=== PATIENT | male | born 1935 | race Caucasian/White ===

== ENCOUNTER 2020-09-18 07:35 | Inpatient (IN) | payer MEDICARE, SELFPAY ==
[2020-09-18] VITALS (14 sets, daily range): BP systolic 108–191; BP diastolic 61–94; PULSE 42–106; RESP 14–22; TEMP 36.3–36.9; O2SAT 96–100
--- NOTE | 2020-09-18 | DI.US_ITS ---
EXAM: US THYROID CLINICAL HISTORY: enlarged. TECHNIQUE: Ultrasound thyroid performed using standard protocol. COMPARISON: No exams were available for comparison FINDINGS: Both thyroid lobes exhibit normal size, as does the isthmus. The thyroid gland echotexture is within normal limits. The right lobe measures 1.7 centimetres AP by 1.3 centimetres wide by 4.3 centimetres cephalocaudal. There are 2 focal findings in the right lobe, both measuring 3 x 2 millimeters and having the appeara nce of benign colloid cysts. There are no solid nodules in the right lobe. The isthmus appears unremarkable The left lobe measures 1.5 centimeters AP x 1.4 centimeters wide by 4.4 centimetres cephalocaudal. T here are no nodules nor cysts in the left lobe. No significant lymphadenopathy evident on these images. IMPRESSION: There are 2 small benign 3 millimeter colloid cysts in the right thyroid lobe. No other focal thyroi d findings. Thyroid lobes both exhibit normal size. No obvious lymphadenopathy evident.
--- NOTE | 2020-09-18 07:30 | RT.EKG_ITS ---
APPROVED REPORT Exam: Resting ECG Patient Location: E HR:77 bpm ECG Measurements Heart Rate 77 AXIS NE 180 P 62 QRSd 103 QRS -10 QT 394 T 58 QTc 433 Conclusion Sinus rhythm...normal P axis, V-rate 60- 99 Probable left atrial enlargement...P >50mS, <-0.10mV V1 I have reviewed and interpreted ECG and agree with software generated interpretation. No stemi, brugada, or epsilon wave
--- NOTE | 2020-09-18 08:18 | W.ED.GENAD ---
Discharge Plan Discharge Details Chief Complaint: RespSymp Admit Date/Time: 09/18/20 10:46 Admit Provider: Arthur Casey Attending Provider: Arthur Casey Primary Care Provider: Luz Townsend ED Provider: Hilaria Montalvo Medical Decision Making Patient has become progressively more confused throughout the evaluation and does have a positive urinary tract infection, interestingly has [place] BNP of 2432 in the absence of overt areas of CHF, he does not have noted cardiomegaly on the CTA, there is no evidence of Pulmonary embolism He has not hypoxic in fact oxygenation is 100% on room air Mildly hyponatremic, 131 EKG shows evidence of PVCs Vitals are stable Blood cultures pending, lactate negative, TSH within normal limits No evidence of pneumonia I do not see any visible evidence of trauma, low suspicion for subdural or subarachnoid headache clinically I did discuss with Dr. Galindo regarding CTA does not show evidence of pulmonary embolism but does exhibit small right pleural effusion with a removal compression fracture at 12, no tenderness appreciated. Low suspicion for COVID-19 as patient has not had known exposure I did attempt to ask and patient regarding his current status and patient is not clinically able to make this decision at this time, however in obtaining the answer from He will be full code until we are able to have this discussion Ceftriaxone 1 g was initiated, patient does not meet sepsis criteria Patient is quite forgetful, he is agreeable to admission Other he is confused, he is alert and was able to tell me the date and location as well as his birthdate on initial presentation He was discussed with the hospital letter, Differential Diagnosis Differential Diagnosis: CHF, pulmonary embolism, pneumonia, urinary tract infection Medical Records Medical records reviewed: Yes I reviewed the patient's medical records. Lab Data Lab results reviewed: Yes I reviewed the patient's lab results. ECG Data Prior ECG tracings: available for review HPI This 84-year-old male presents with past medical history of hypertension and hyperlipidemia. He called EMS today because he was feeling short of breath. He states that he had intermittent symptoms for the past year. Today he was concerned because the had shakes, anorexia, and felt as though he could not take a deep breath. He denies any associated chest discomfort. He denies fever or chills. He denies any exertional dyspnea or calf pain or swelling. He denies known sick contacts. His is otherwise well. He denies any thoughts of wanting to harm self or others. He denies any history of coagulopathy. He denies any pleuritic chest pain. He did recently acquire a primary care physician and is scheduled for an appointment regarding his anxiety or potential anxiety today. At rest and upon my evaluation he states that he is completely asymptomatic at this time aside from anorexia, he simply has no interest in. He states. He denies any nausea or vomiting. He denies any change in medications with after taking a sleeping pill. He denies any attempts to harm self. He denies known depression. He has not yet been formally diagnosed with anxiety patient. General Date/Time Provider Initiated Documentation: 09/18/20 07:46. Related Data Home Medications Medication Instructions Recorded Confirmed multivitamin 1 ea PO DAILY 08/06/13 09/18/20 Allergies Allergy/AdvReac Type Severity Reaction Status Date / Time indomethacin Allergy Severe MOUTH Verified 09/18/20 08:03 SWELLED General Stated Complaint: RespSymp [place]: 3 Review of Systems Narrative: Review of systems obtained x7 and negative aside from indicated in HPI PFSH Family History (Updated 08/08/18 @ 13:48 by Fatimah Kurtz) Mother Heart disease Father , AGE 83 No problems noted. Social History (Updated 08/08/18 @ 13:47 by Fatimah Kurtz) Smoking/Tobacco Use Status: Former Tobacco Use Quit Date: 08/28/87 Smoking risk assessment performed?: Yes Alcohol Intake: former Substance use type: does not use Frequency: does not exercise Rohini/Synagogue: No preference Special rohini needs: No Do you feel safe at home: Yes Do you feel safe in your relationship?: Yes Exam Const General: cooperative and no acute distress Nutritional Appearance: thin Orientation: alert [facility] Head: normal to inspection Mouth: oral mucosae normal Eyes General: appearance normal, both eyes and all related structures Neck Thyroid: thyroid normal Chest Chest: normal inspection of the chest Resp Effort & Inspection: normal respiratory effort Auscultation: clear to auscultation bilaterally Cardio Jugular venous pressure: no JVD Rate: regular rate Rhythm: regular rhythm Neuro General: patient alert Cranial Nerves: CN's II-XI intact bilaterally Cognition: normal cognition Speech: speech normal Sensory Exam: no sensory deficits noted Psych Appearance: well kempt Mental Status: mental status grossly normal Speech and Movement: speech and movement normal Mood: anxious mood Thought Process: normal Thought Content: normal Insight: insight good Judgment: judgment good Course Vital Signs Vital signs: Vital Signs Temperature 36.4 C L 09/18/20 07:43 Pulse 81 09/18/20 07:43 Respiratory Rate 16 09/18/20 07:43 Blood Pressure 153/67 H 09/18/20 07:43 Pulse Oximetry 100 09/18/20 07:43 Temperature 36.4 C L 09/18/20 07:43 Pulse 81 09/18/20 07:43 Respiratory Rate 16 09/18/20 07:43 Respiratory Effort Non-Labored 09/18/20 07:54 Blood Pressure 153/67 H 09/18/20 07:43 Pulse Oximetry 100 09/18/20 07:43 Oxygen Delivery Method Room Air 09/18/20 07:43 Oxygen Flow Rate 0 09/18/20 07:43 Pain Level 0 09/18/20 07:43
[2020-09-18 08:30] LABS: Abs Immature Grans 0.01 10^3/uL (0.0-0.06); Absolute Basophil Count 0.01 10^3/uL (0.0-0.2); Absolute Eosinophil Count 0.04 10^3/uL (0.0-0.7); Absolute Lymphocyte Count 0.78 10^3/uL (1.2-3.4); Absolute Monocyte Count 0.73 10^3/uL (0.1-0.8); Absolute Neutrophil Count 3.81 10^3/uL (1.2-6.7); Basophils % 0.2; Eosinophils % 0.7; HCT 33.8 % (40.0-50.0); HGB 11.4 g/dL (13.5-17.5); Immature Grans % 0.2; Lymphocytes % 14.5; MCH 33.7 pg (27.0-33.0); MCHC 33.7 % (32.0-36.0); MPV 9.7 fL (8.0-11.0); Monocytes % 13.6; Neutrophils % 70.8; Nucleated RBC 0 %; Platelet Count 177 10^3/uL (130-400); RBC 3.38 10^6/uL (4.36-5.78); RDW 12.2 % (11.8-14.1); RDW-SD 44.6 fL; WBC 5.38 10^3/uL (4.4-10.8)
[2020-09-18 08:50] LABS: Bilirubin Negative (Negative); Blood Trace-intact (Negative); Clarity Sl Cloudy (Clear); Glucose Negative (Negative); Ketones Negative (Negative); Leukocyte Esterase Moderate (Negative); Nitrite Positive (Negative); pH 7.5 (5-8)
[2020-09-18 08:52] LABS: ALT 15 U/L (16-63); AST 20 U/L (15-37); Albumin 2.8 g/dL (3.4-5.0); Alkaline Phosphatase 143 U/L (46-116); BUN 13 mg/dL (7-18); Bilirubin, Total 0.8 mg/dL (0.2-1.0); CREATININE 0.84 mg/dL (0.70-1.30); Chloride 95 mmol/L (98-107); Glucose 123 mg/dL (74-106); NT-proBNP 2343 pg/mL (<300); Potassium 3.9 mmol/L (3.5-5.1); Sodium 131 mmol/L (136-145); Total Protein 7.4 g/dL (6.4-8.2); Troponin I < 0.05 ng/mL (<0.06)
[2020-09-18 09:05] LABS: Bacteria Many HPF (Negative); Crystals Negative HPF (Negative); Epithelial Cells Negative HPF (Negative); Mucus Negative (Negative); RBC 0-2 HPF (0-2); WBC >50 HPF (0-5)
[2020-09-18 09:06] LABS: C & S Indicated? Yes
--- NOTE | 2020-09-18 09:10 | DI.RAD_ITS ---
EXAM: XR PORTABLE CHEST AP CLINICAL HISTORY: shortness of breath TECHNIQUE: 2D digital imaging was performed. COMPARISON: No exams were available for comparison FINDINGS: Heart size is within normal limits. The pulmonary vasculature is unremarkable. There are diffuse in terstitial markings. Although this may represent an acute interstitial pneumonia/edema, chronic pulm onary fibrosis should also be considered. Please correlate clinically. No focal consolidating infil trates are seen. There is blunting of the right costophrenic angle which may represent a small pleur al effusion. No left pleural effusion or pneumothorax is seen. There is a mild right convex scolios is of the thoracic spine. Degenerative changes are seen in the thoracic spine and shoulders bilatera lly. IMPRESSION: 1. Small right pleural effusion. 2. Diffuse interstitial changes within the lungs. This may reflect chronic pulmonary fibrosis. Acut e interstitial infiltrate/edema cannot be excluded. Please correlate clinically. DATA REPOSITORY: RADIATION DOSE DELIVERED:
[2020-09-18] MEDS: Omnipaque 350 MG/ML 100 ML BTL IJ (09:38)
[2020-09-18] MEDS: Normal Saline - Diluent 50 ML VIAL IV (09:39)
[2020-09-18] MEDS: Normal Saline Flush 10 ML SYR IVP ×3 (09:40→12:20)
--- NOTE | 2020-09-18 09:45 | DI.CT_ITS ---
EXAM: CT CHEST PE CTA CLINICAL HISTORY: elevated bnp level and dyspnea. TECHNIQUE: Imaging Protocol: Axial CT angiography was performed with multi-slice acquisition and mu lti-planar and/or 3D reconstructions. CONTRAST MATERIAL: Intravenous: Omnipaque 350 Contrast volume:100 mL COMPARISON: CR XR PORTABLE CHEST AP from 09/18/2020 FINDINGS: The examination is limited due to patient motion artifact. Tracheobronchial tree: Patent where visualized. Pulmonary parenchyma: No consolidation or dominant measurable mass. Mild pulmonary fibrosis. Examina tion is limited due to patient respiration artifact. Pulmonary Arteries: No evidence of filling defect to suggest pulmonary emboli. Mediastinum and Sera: No dominant adenopathy or fluid collection. Visualized thyroid gland: Unremarkable. Pleura: There is a small right pleural effusion. No left pleural effusion. No pneumothorax. Heart: The heart is not dilated. Moderate coronary artery calcification. No pericardial effusion. Aorta: Thoracic aorta non-dilated. Atherosclerosis. No evidence of dissection. Upper abdomen: Unremarkable. Soft tissues: Unremarkable. Bones: There is a mild compression deformity of the T12 vertebral body this is indeterminate in age. IMPRESSION: 1. No evidence of pulmonary embolism, thoracic aortic dissection or aneurysm. 2. Mild T12 compression deformity. This is of indeterminate age. 3. Findings were discussed with the emergency department on the date of the examination. RADIATION DOSE DELIVERED: 223.63mGy.cm Total DLP DATA REPOSITORY: All CT scans at this facility are submitted to the National Radiology Data Registry (NRDR) Dose Index Registry (DIR) with the [employer] (ACR). RADIATION OPTIMIZATION: All CT scans at this facility use at least one of these dose optimization te chniques: automated exposure control; mA and/or kV adjustment per patient size (includes targeted exa ms where dose is matched to clinical indication); or iterative reconstruction.
--- NOTE | 2020-09-18 10:05 | NUR.NOTE ---
blood cultures x 2 obtained by slab off mill tender and lactic
[2020-09-18 10:09] LABS: Lactate 1.1 mmol/L (0.6-1.4)
[2020-09-18] MEDS: cefTRIAXone 1 GM/50 ML BAG IVPB (10:14)
--- NOTE | 2020-09-18 10:52 | NUR.NOTE ---
assisted at bedside with two nurses to use urinal. very anxious, asking what happens next and what time he will go to bed tonight. states he does not want to lay here all day. required quite a bit of verbal cues to get out of bed and use urinal which he did earlier independently. states they have me coming and going and I don't know which way is which. he spoke with his on the phone
[2020-09-18] MEDS: Normal Saline 250 ML 500 ML IV (11:00)
[2020-09-18] MEDS: LORazepam 2 MG/ML VIAL 0.5 MG IVP (12:14)
[2020-09-18] MEDS: Furosemide 20 MG/2 ML VIAL IVP (12:19)
[2020-09-18] MEDS: Heparin 5,000 UNITS/ML VIAL 5000 UNITS SC ×2 (12:19→19:19)
[2020-09-18] MEDS: diazePAM 2 MG TAB PO ×2 (12:38→14:11)
[2020-09-18] MEDS: hydrOXYzine HCL 25 MG TAB PO (12:39)
--- NOTE | 2020-09-18 13:00 | W.NUTCONSULT ---
Date of service: 09/18/20 Time of Service: 13:00 Nutritional Consult ASSESSMENT: 84 year old cachexic male admitted with UTI and weakness. PMH: CHF, HTN, HLD, r/o covid 19. Did not meet with pt today in view of precautions. BMI wnl,on low end, reports poor appetite in recent weeks. Albumin low(2.8 09/18/20), elevated liver enzymes, elevated glucose. NUTRITIONAL DIAGNOSIS: Moderate malnutrition in view of loss of subcutaneous fat and muscle wasting INTERVENTION: advance diet as tolerated supplement with ensure BID, custard or ice cream qd MONITORING AND EVALUATION: weight, po intake, labs Time Spent in Nutritional Counseling and Treatment: 0
--- NOTE | 2020-09-18 14:14 | HPE_ITS ---
Date of service: 09/18/20 Time of Service: 14:14 Assessment and Plan Assessment and plan (1) Weakness: Start date: 09/18/20 Start time: 14:42 Status: Acute Assessment and plan: Brought to [facility] ED for weakness inability to eat, x 1 year, appears chachetic. BNP elevated, ordered echo anemia by labs in ED Iron studies for am PT/OT eval Palliative PSA (2) UTI (urinary tract infection): Start date: 09/18/20 Start time: 14:38 Status: Acute Assessment and plan: Found [employer] INTER[employer], urine culture pending. Started on ceftriaxone 1 gm Obtaining Abd/pelvis CT Bladder scan for PVR Bowel Regimen Qualifiers: Urinary tract infection type: site unspecified Hematuria presence: without hematuria Qualified Code(s): N39.0 - Urinary tract infection, site not specified (3) Anxiety: Start date: 09/18/20 Start time: 14:43 Status: Chronic Assessment and plan: Severly anxious. He appeared to do well with low dose valium will make PRN TID, add seroquel BID 25 mg and decrease if becomes too sedating, no known diagnosis of dementia, though this is likely and in setting of acute delirium. Sitter for safety Continue safety precautions. (4) Memory deficit: Start date: 09/18/20 Start time: 14:44 Status: Acute Assessment and plan: as above (5) Hypertension: Start date: 09/18/20 Start time: 14:40 Status: Chronic Assessment and plan: No currently on anything, will start low dose lisinopril Qualifiers: Hypertension type: essential hypertension Qualified Code(s): I10 - Essential (primary) hypertension (6) Hyperlipidemia: Start date: 09/18/20 Start time: 14:41 Status: Acute Assessment and plan: Per history HLD, but not currently on anything will check lipid panel in am Qualifiers: Hyperlipidemia type: unspecified Qualified Code(s): E78.5 - Hyperlipidemia, unspecified History of Present Illness History of Present Illness Chief Complaint: UTI, Weakness, Anxiety Narrative: 84 y.o male with dementia, HTN, HLD, presents to [facility] ED with c/o feeling SOB. He states having intermittent symptoms x 1 year. He states over the last year he has had shakes, anorexia, and felt as though he could not take a deep breath. Labs in ED remarkable for H/H 11.4/33.8, MCV 100.0. NA 131 alk phos 143, BNP 2343 albumin 2.8. He has been asked to be admitted for further management. On admission to floor patient is very nervous/anxious, chachetic, he was given ativan with little relief, and valium PO which seemed to calm him down.Trial seroquel for confusion with acute dilruim. He is a poor historian and has not been to a PCP in years. He does not like being in hospitals. He is very thin and states he has not been able to eat in almost a year, sometimes food gets stuck in his throat. His thyroid did feel slightly enlarged, will get thyroid u/s. Will obtain echo as he had an elevated BNP with CXR revealing Small right pleural effusion. Dose of lasix for effusion also acute edema/infiltrate cannot be excluded on XR. Urine in ED positive for nitrates and leuk estras, treat with ceftriaxone, urine cx pending, PVR. Will obtain CT abd pelvis. Palliative care consult, PT/OT. Review of Systems All systems reviewed & are unremarkable except as noted in HPI and below PFSH Medical History (Updated 09/18/20 @ 14:41 by Promise Simeon NP) Anorexia Eye degeneration Gout We will check a uric acid along with a CBC and CMP. Hearing loss Does not have a hearing aid but seems to function okay. 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 He does not want any treatment for this at present. He does not want any further x-rays. Family History (Updated 08/08/18 @ 13:48 by Fatimah Kurtz) Mother Heart disease Father , AGE 83 No problems noted. Social History (Updated 08/08/18 @ 13:47 by Fatimah Kurtz) Smoking/Tobacco Use Status: Former Tobacco Use Quit Date: 08/28/87 Smoking risk assessment performed?: Yes Alcohol Intake: former Substance use type: does not use Frequency: does not exercise Rohini/Episcopalian: No preference Special rohini needs: No Do you feel safe at home: Yes Do you feel safe in your relationship?: Yes Meds Home Medications and Allergies Home Medications Medication Instructions Recorded Confirmed Type multivitamin 1 ea PO DAILY 08/06/13 09/18/20 History Allergies Allergy/AdvReac Type Severity Reaction Status Date / Time indomethacin Allergy Severe MOUTH Verified 09/18/20 08:03 SWELLED Exam Const General: cooperative, frail appearing and ill appearing chronically Nutritional Appearance: underweight Orientation: alert and oriented to person [facility] Head: normal to inspection, normocephalic and atraumatic Ears: hearing grossly normal bilaterally Face and sinus: normal facial exam and face symmetric Mouth: moist mucous membranes Eyes Visual Colin: visual colin abnormal by confrontation and abnormal by confrontation Eyelids: eyelids normal Conjunctivae: conjunctivae normal Sclera: sclerae normal Pupils: PERRL EOM: EOM intact bilaterally Neck Neck: normal visual inspection and no JVD Thyroid: abnormal thyroid and other (palpable) Lymphatic: no lymphadenopathy noted Resp Effort & Inspection: normal respiratory effort Auscultation: clear to auscultation bilaterally Cardio Jugular venous pressure: no JVD Rate: regular rate Rhythm: regular rhythm Heart Sounds: S1 normal and S2 normal GI Inspection: scaphoid Palpation: soft and no hepatosplenomegaly Auscultation: normal bowel sounds Back/Spine/Pelvis Back: no CVA tenderness Thoracic/Lumbar Spine: thoracic and lumbar spine normal to inspection Skin General skin exam: no rashes or lesions noted Neuro General: patient alert, not oriented x3 and patient confused Cognition: abnormal cognition Speech: speech normal Extrem General: normal to inspection, full ROM and no clubbing, cyanosis or edema Psych Appearance: well kempt Mental Status: other (highly anxious) Speech and Movement: speech and movement normal Mood: other (highly anxious) Results Labs Result diagrams: 09/18/20 08:20 09/18/20 08:20 Labs: Laboratory Results - last 24 hr 09/18/20 09/18/20 09/18/20 08:20 08:20 08:35 WBC 5.38 RBC 3.38 L Hgb 11.4 L Hct 33.8 L MCV 100.0 H MCH 33.7 H MCHC 33.7 RDW 12.2 Plt Count 177 MPV 9.7 Immature Gran % 0.2 Neutrophils % 70.8 Lymphocytes % 14.5 Monocytes % 13.6 Eosinophils % 0.7 Basophils % 0.2 Nucleated RBC % 0 Absolute Neutrophils 3.81 Absolute Lymphocytes 0.78 L Absolute Monocytes 0.73 Absolute Eosinophils 0.04 Absolute Basophils 0.01 VBG Lactate Sodium 131 L Potassium 3.9 Chloride 95 L Carbon Dioxide 32.0 Anion Gap 4.0 BUN 13 Creatinine 0.84 Estimated GFR/1.73 m2 >= 60.00 Glucose 123 H Calcium 9.0 Total Bilirubin 0.8 AST 20 ALT 15 L Alkaline Phosphatase 143 H Troponin I < 0.05 NT-Pro-B Natriuret Pep 2343 H Total Protein 7.4 Albumin 2.8 L TSH 2.60 Urine Color Yellow Urine Clarity Sl cloudy Urine pH 7.5 Ur Specific [place] 1.020 Urine Protein 30 H Urine Ketones Negative Urine Blood Trace-intact H Urine Nitrite Positive H Urine Bilirubin Negative Urine Urobilinogen 1.0 H Ur Leukocyte Esterase Moderate H Urine RBC 0-2 Urine WBC >50 H Ur Epithelial Cells Negative Urine Crystals Negative Urine Bacteria Many Urine Mucus Negative Ur Culture Indicated? Yes Urine Glucose Negative 09/18/20 10:00 WBC RBC Hgb Hct MCV MCH MCHC RDW Plt Count MPV Immature Gran % Neutrophils % Lymphocytes % Monocytes % Eosinophils % Basophils % Nucleated RBC % Absolute Neutrophils Absolute Lymphocytes Absolute Monocytes Absolute Eosinophils Absolute Basophils VBG Lactate 1.1 Sodium Potassium Chloride Carbon Dioxide Anion Gap BUN Creatinine Estimated GFR/1.73 m2 Glucose Calcium Total Bilirubin AST ALT Alkaline Phosphatase Troponin I NT-Pro-B Natriuret Pep Total Protein Albumin TSH Urine Color Urine Clarity Urine pH Ur Specific [place] Urine Protein Urine Ketones Urine Blood Urine Nitrite Urine Bilirubin Urine Urobilinogen Ur Leukocyte Esterase Urine RBC Urine WBC Ur Epithelial Cells Urine Crystals Urine Bacteria Urine Mucus Ur Culture Indicated? Urine Glucose Last Vital Signs Temp 36.9 C 09/18/20 11:34 Pulse 106 H 09/18/20 11:34 Resp 22 09/18/20 11:34 BP 179/73 H 09/18/20 11:34 Pulse Ox 99 09/18/20 11:34 COVID-19 Screening Have you, or household traveled for leisure in last 14 days?: No Had IN PERSON contact w/suspected or confirmed C-19 person: No
[2020-09-18] MEDS: Lisinopril 5 MG TAB PO (15:28)
--- NOTE | 2020-09-18 15:55 | DI.CT_ITS ---
EXAM: CT ABDOMEN PELVIS WO CLINICAL HISTORY: decreased appetite constipation. TECHNIQUE: Imaging Protocol: Axial computed tomography images with coronal and sagittal reformatted images were created and reviewed CONTRAST MATERIAL: Intravenous: none Oral: None COMPARISON: CT CT CHEST PE CTA from 09/18/2020 FINDINGS: VISUALIZED LUNG BASES: There is some infiltrate and pleural effusion in the right lung base, similar to yesterday ABDOMEN: There is no ascites. LIVER: Liver appears somewhat cirrhotic. There is no obvious discrete focal hepatic lesion evident. GALLBLADDER/BILIARY: Not seen and presumed to be surgically absent. There are no clips in the gallbl adder fossa. CBD is not dilated. PANCREAS: No evidence of pancreatic mass nor dilatation of the pancreatic duct. SPLEEN: Spleen is not enlarged. No obvious intrasplenic lesions. ADRENALS: There are no significant adrenal masses. KIDNEYS:No cysts evident. No solid renal masses. No calculi nor hydronephrosis. . ABDOMINAL AORTA: Calcified. Upper normal diameter for this age group. ABDOMINAL WALL/GI: There is right inguinal hernia which contains fluid but no bowel loops. No bowel obstruction. PELVIS: LYMPH NODES: There is no intrapelvic nor inguinal adenopathy. GI: No evidence of appendicitis.No evidence of sigmoid diverticulitis. URINARY BLADDER: Distended and filled with contrast from yesterday's CT scan. REPRODUCTIVE: Prostate is not enlarged. 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 Ad vanced degenerative changes are noted in the opposite-right hip. There is ankylosis of the sacroilia c joints noted. There is compression fracture of superior endplate of L2 +Schmorl's node invagination at this level, all age-indeterminate. Similar compression fracture superior endplate of T12, age indeterminate. IMPRESSION: 1. There is some infiltrate in the right lung base and there is a small right pleural effusion noted. This appears unchanged in for size from yesterday's chest CT scan. 2. The urinary bladder is distended. No obvious bladder mass. 3. Minimally dilated bilateral urinary tract collecting systems, symmetrical in appearance and possib ly related to bladder outlet obstruction, despite prostate not being grossly enlarged. There is no o bvious mass in the urinary bladder. RADIATION DOSE DELIVERED: 512mGy.cm Total DLP DATA REPOSITORY: All CT scans at this facility are submitted to the National Radiology Data Registry (NRDR) Dose Index Registry (DIR) with the [employer] (ACR). RADIATION OPTIMIZATION: All CT scans at this facility use at least one of these dose optimization te chniques: automated exposure control; mA and/or kV adjustment per patient size (includes targeted exa ms where dose is matched to clinical indication); or iterative reconstruction.
--- NOTE | 2020-09-18 16:01 | IN_ITS ---
Date of service: 09/18/20 Time of Service: 16:01 PT Notes Visit Reasons: WEAKNESS, UTI Physical Therapy Inpatient Initial Evaluation Date: 09/18/2020 Referring Doctor: Promise Simeon NP PT Orders: PT CONSULT: Eval/Treat Precautions: Fall. Standard. Activity as tolerated. Decreased visual acuity. Patient Profile/Admitting Diagnosis: Raul is an 84-year-old male who presented to the ED on 09/18/2020 due to chief complaints of shaking, anorexia, and shortne ss of breath. Patient is diagnosed with urinary tract infection, generalized weakness, anxiety, memory deficit, and hyperlipidemia. PMHX: Medical History (Updated 09/18/20 @ 14:41 by Promise Simeon NP) Anorexia Eye degeneration Gout We will check a uric acid along with a CBC and CMP. Hearing loss Does not have a hearing aid but seems to function okay. 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 He does not want any treatment for this at present. He does not want any further x-rays. Social History/Home Situation: Lives with in a private home. States that at baseline he is independent with his single-point cane for all indoor and outdoor ambulation. Equipment Owned/DME: Single-point cane Subjective: Agreeable to PT consult. Denies headache, chest pain, and lightheadedness during throughout. It indicated he feels shaky while walking. Objective: General Observation: Supine in bed. Bilateral TEDS on. Mental Status: Alert and is able to follow single step commands. Oriented as to person and place. Pain: None reported ROM: Right Upper Extremity: Shoulder Flexion WFL. Shoulder abduction WFL. Elbow flexion WFL. Wrist flexion WFL. Opening and closing of hand WFL. Left Upper Extremity: Shoulder Flexion WFL. Shoulder abduction WFL. Elbow flexion WFL. Wrist flexion WFL. Opening and closing of hand WFL. Right Lower Extremity: Hip flexion WFL. Hip abduction WFL. Knee flexion WFL. Ankle dorsiflexion WFL. Ankle plantarflexion WFL. Left Lower Extremity: Hip flexion WFL. Hip abduction WFL. Knee flexion WFL. Ankle dorsiflexion WFL. Ankle plantarflexion WFL. Strength: Right Upper Extremity: Shoulder flexors 4-/5. Shoulder abductors 4-/5. Elbow flexors 4-/5. Elbow extensors 4-/5. Sales Account Director strong. Left Upper Extremity: Shoulder flexors 4-/5. Shoulder abductors 4-/5. Elbow flexors 4-/5. Elbow extensors 4-/5. Sales Account Director strong. Right Lower Extremity: Hip flexors 3+/5. Hip abductors 3+/5. Knee flexors 4-/5. Knee extensors 3+/5. Ankle dorsiflexors 4/5. Ankle plantarflexors 4/5. Left Lower Extremity: Hip flexors 4-/5. Hip abductors 4-/5. Knee flexors 4-/5. Knee extensors 3+/5. Ankle dorsiflexors 4/5. Ankle plantarflexors 4/5. Sensation: Intact as to pain and pressure on bilateral lower extremities. Bed Mobility/Transfers: Rolling standby assist Supine to sit standby assist Sit to supine contact-guard assist Sit to stand contact-guard assist Stand to sit contact-guard assist Bed to chair contact-guard assist Chair to bed contact-guard assist Gait: Guided patient through level surface ambulation of 20 feet was 20 feet using front wheeled walker with full weightbearing and contact-guard assist demonstrating mild ataxic gait with decreased jarred as well as thoracic kyphosis. Decreased visual acuity contributing to increased risk for falls. Balance: Static Sitting: Good Dynamic Sitting: Good Static Standing: Fair Dynamic Standing: Fair Special Tests: Mobility Limitations Standardized Measure [facility] 6 clicks Basic Mobility Inpatient Short Form: Raw Score: 1847% deficit CMS Score: Informed Consent/Education: Patient instructed in purpose of PT consult and plan of care. Assessment: Margin demonstrates functional mobility decline requiring downgrade of mobility assistive device to walker to minimize shakiness and unsteadiness, impairment with balance, decreased visual acuity, decreased activity tolerance, and increased risk of falls due to admitting diagnosis and co-morbidities. Patient presents with clinical signs and symptoms consistent with current/admitting diagnoses that have resulted to mobility limitations, gait instability, generalized weakness, and impairment of motor control as demonstrated by the following impairment level findings: 1. Decreased strength to B UE/LE major muscle groups 2. Impaired sitting/standing balance 3. Impaired activity tolerance Impairments are contributing to the following functional limitations: 1. Dependent bed mobility skills 2. Increased dependence with transfers 3. Inability to safely ambulate without assistive device and physical assistance 4. Increase completion time for mobility ADL performance 5. Increased fall risk 6. Inability to negotiate steps alone safely Patient is assessed as a 06394 moderate complexity based on the following: History: 84-year-old male with impairment level findings, functional limitations, and past medical history as indicated above Examination: Demonstrable impairment in strength, balance, and mobility level with underlying impairments and functional limitations as documented above Presentation:Evolving Decision Makin moderate complexity Goals: Goals X1 week 1. Supine-Sit independent 2. Sit-Supine independent 3. Sit-Stand independent 4. Stand-Sit independent 5. Bed-Chair independent 6. Chair-Bed independent 7. Supervision gait on level surface with use of front wheeled walker for at least 300 feet without report of pain nor dyspnea 8. Good static and dynamic standing balance/tolerance Plan of Care/Treatment Plan: 1-2x/day, 7 days/week x 1 week. Plan of care has been reviewed with the TRANSPORTATION ECONOMICS TEACHER providing the service under Physical Therapy direction. Initiate Physical Therapy intervention for strengthening, bed mobility, transfers, gait, stairs, balance training, use of assistive device. DISCHARGE RECOMMENDATIONS: SNF versus home health PT. will benefit from occupational therapy services in order to maximize ADL performance at discharge destination. TREATMENT CODE/TIME: 9716 2 x 21 minutes beginning at 16:01 PM. Thank you for the opportunity to participate in the care of this patient. Cristal Smith PT, DPT, CLT [facility] [place], [place]
--- NOTE | 2020-09-18 16:14 | DI.VRAD_ITS ---
PROCEDURE INFORMATION: Exam: CT Abdomen And Pelvis Without Contrast Exam date and time: 09/18/2020 3:53 PM Age: 84 years old Clinical indication: Other: Decreased appetite constipation TECHNIQUE: Imaging protocol: Computed tomography of the abdomen and pelvis without contrast. Radiation optimization: All CT scans at this facility use at least one of these dose optimization techniques: automated exposure control; mA and/or kV adjustment per patient size (includes targeted exams where dose is matched to clinical indication); or iterative reconstruction. COMPARISON: No relevant prior studies available. FINDINGS: Lungs: Opacity in the right middle lobe and both lower lobes may represent atelectasis or pneumonia.. Pleural space: Small right pleural effusion. Liver: Lobulated liver may reflect cirrhosis Gallbladder and bile ducts: Cholecystectomy Pancreas: Pancreatic atrophy Spleen: Normal. No splenomegaly. Adrenal glands: Normal. No mass. Kidneys and ureters: Mildly dilated collecting systems and ureters bilaterally may be secondary to bladder distention Stomach and bowel: Unremarkable. No obstruction. No mucosal thickening. Appendix: No evidence of appendicitis. Intraperitoneal space: Unremarkable. No free air. No significant fluid collection. Vasculature: Unremarkable. No abdominal aortic aneurysm. Lymph nodes: Unremarkable. No enlarged lymph nodes. Urinary bladder: The bladder is distended. This may be the etiology of the mildly dilated collecting systems and proximal ureters bilaterally.. Reproductive: Unremarkable as visualized. Bones/joints: Compression fractures of unknown age in the thoracolumbar spine No acute fracture. Soft tissues: Right inguinal hernia contains fluid ; no bowel IMPRESSION: 1. Small right pleural effusion. 2. Opacity in the right middle lobe and both lower lobes may represent atelectasis or pneumonia.. 3. The bladder is distended. This may be the etiology of the mildly dilated collecting systems and proximal ureters bilaterally.. Dictated and Authenticated by: Michelle Rosario MD. Ordering:MARK Virgen MD
[2020-09-18] MEDS: Lidocaine 2% Jelly 11 ML SYR (17:19)
[2020-09-18] MEDS: Lidocaine 2% Jelly 11 ML SYR UR (17:19)
[2020-09-18] MEDS: QUEtiapine 25 MG TAB PO (19:19)
[2020-09-18 20:39] LABS: COVID-19 RT-PCR UVMMC Result Negative (Negative)
[2020-09-19] VITALS (8 sets, daily range): BP systolic 88–121; BP diastolic 47–88; PULSE 55–89; RESP 14–24; TEMP 35.4–36.9; O2SAT 97–99
--- NOTE | 2020-09-19 | DI.CT_ITS ---
EXAM: CT BRAIN NECK CTA CLINICAL HISTORY: syncopal episode. TECHNIQUE: Imaging Protocol: Axial CT angiography was performed with multi-slice acquisition and mu lti-planar and/or 3D reconstructions. CONTRAST MATERIAL: Intravenous: Omnipaque 350 Contrast volume:structured data in ml COMPARISON: CT CT ABDOMEN PELVIS WO from 09/18/2020 FINDINGS: CT Head W/O, W: Ventricles and Extra axial spaces: Normal in size and morphology for the patient's age. Hemorrhage: None. Cerebral parenchyma: Mild atrophy. Patchy white matter changes likely reflecting microvascular disea se. Midline shift: None. Brainstem/Cerebellum: Normal. Calvarium: Normal. Visualized Paranasal sinuses/Mastoids: Clear. Soft Tissues: Unremarkable. No abnormal enhancing lesions. CTA Brain W: Internal Carotid Arteries: Calcification but no significant stenosis bilaterally. Petrous: Normal. Cavernous: Normal. Cerebral: Normal. Middle Cerebral Arteries: Right: No aneurysm, occlusion or significant stenosis. Left: No aneurysm, occlusion or significant stenosis. Anterior Cerebral Arteries: Right: No aneurysm, occlusion or significant stenosis. Left: No aneurysm, occlusion or significant stenosis. Posterior cerebral Arteries: Right: No aneurysm, occlusion or significant stenosis. Left: No aneurysm, occlusion or significant stenosis. Vertebral Arteries: Right: No aneurysm, occlusion or significant stenosis. Left: Diminutive. No aneurysm, occlusion or significant stenosis. Basilar Artery: No aneurysm, occlusion or significant stenosis. CTA Neck W: Mildly limited by motion. Common Carotid: Calcifications at the origin. Right: No aneurysm, occlusion or significant stenosis. Left: No aneurysm, occlusion or significant stenosis. External Carotid: Calcification at the origin Right: No aneurysm, occlusion or significant stenosis. Left: No aneurysm, occlusion or significant stenosis. Internal Carotid: Right: Mild mixed calcified and noncalcified plaque at the bifurcation and proximal internal carotid artery. No aneurysm, occlusion or significant stenosis. Left: Calcification at the bifurcation. No aneurysm, occlusion or significant stenosis. Vertebral Artery: Right: No aneurysm, occlusion or significant stenosis. Left: Diminutive. No aneurysm, occlusion or significant stenosis. Lung Apices: Apical scarring. Bones: Degenerative changes. No fracture. Soft Tissues: Normal. IMPRESSION: 1. Somewhat limited exam due to motion. Normal CTA examination of the [place]. 2. Mild white matter changes of small vessel disease.. 3. Calcification at the common carotid bulbs. No significant stenosis.. RADIATION DOSE DELIVERED: 2,035.94mGy.cm Total DLP DATA REPOSITORY: All CT scans at this facility are submitted to the National Radiology Data Registry (NRDR) Dose Index Registry (DIR) with the [employer] (ACR). RADIATION OPTIMIZATION: All CT scans at this facility use at least one of these dose optimization te chniques: automated exposure control; mA and/or kV adjustment per patient size (includes targeted exa ms where dose is matched to clinical indication); or iterative reconstruction.
[2020-09-19] MEDS: Heparin 5,000 UNITS/ML VIAL 5000 UNITS SC ×2 (03:52→19:21)
[2020-09-19 07:00] LABS: Abs Immature Grans 0.07 10^3/uL (0.0-0.06); Absolute Lymphocyte Count 1.21 10^3/uL (1.2-3.4); Absolute Monocyte Count 0.99 10^3/uL (0.1-0.8); Absolute Neutrophil Count 11.41 10^3/uL (1.2-6.7); Basophils % 0.1; Eosinophils % 0.4; HCT 33.9 % (40.0-50.0); HGB 11.6 g/dL (13.5-17.5); Immature Grans % 0.5; Lymphocytes % 8.8; MCH 34.1 pg (27.0-33.0); MCHC 34.2 % (32.0-36.0); MCV 99.7 fL (80-95); MPV 10.2 fL (8.0-11.0); Monocytes % 7.2; Nucleated RBC 0 %; Platelet Count 171 10^3/uL (130-400); RDW 12.3 % (11.8-14.1); RDW-SD 45.1 fL; WBC 13.75 10^3/uL (4.4-10.8)
[2020-09-19 07:19] LABS: Absolute Basophil Count 0.01 10^3/uL (0.0-0.2); Absolute Eosinophil Count 0.06 10^3/uL (0.0-0.7); Calculated LDL 72 mg/dL (<100); Cholesterol 139 mg/dL (<200); HDL Cholesterol 57 mg/dL (40-60); Magnesium 1.9 mg/dL (1.8-2.4); Triglyceride 52 mg/dL (<150)
[2020-09-19 07:29] LABS: Folate 17.5 ng/mL (8.6-20.0)
[2020-09-19 07:31] LABS: BUN 16 mg/dL (7-18); CREATININE 0.87 mg/dL (0.70-1.30); Calcium 8.7 mg/dL (8.5-10.1); Chloride 98 mmol/L (98-107); Ferritin 377 ng/mL (26-388); Glucose 111 mg/dL (74-106); Potassium 3.1 mmol/L (3.5-5.1); Sodium 135 mmol/L (136-145)
[2020-09-19 07:46] LABS: Iron 22 ug/dL (65-175); Total Iron Binding Capacity 115 ug/dL (250-450); Transferrin Sat 19 % (20-55)
[2020-09-19] MEDS: Lisinopril 5 MG TAB PO (08:18)
[2020-09-19] MEDS: QUEtiapine 25 MG TAB PO (08:18)
[2020-09-19] MEDS: Potassium Chloride 20 MEQ TABCR 40 MEQ PO (08:50)
[2020-09-19] MEDS: Tamsulosin 0.4 MG CAPCR PO (08:50)
[2020-09-19] MEDS: Normal Saline 500 ML 100 ML IV (09:15)
[2020-09-19] MEDS: PIPERACILLIN/TAZO 3.375 GM in Normal Saline 50 ML IVPB ×3 (09:17→22:23)
[2020-09-19] MEDS: diazePAM 2 MG TAB PO ×2 (09:17→19:16)
[2020-09-19] MEDS: Ferrous Sulfate 325 MG TAB PO (09:17)
[2020-09-19] MEDS: Normal Saline Flush 10 ML SYR IVP ×3 (09:19→15:00)
[2020-09-19] MEDS: Normal Saline 1,000 ML 50 ML IV (10:26)
[2020-09-19] MEDS: DOXYCYCLINE 100 MG in Normal Saline 100 ML IVPB ×2 (10:28→21:10)
--- NOTE | 2020-09-19 10:57 | PDOC.CMIN ---
- If Service Date Differs Date of service: 09/19/20 Time of Service: 10:57 Care Management Initial Assess REASON FOR HOSPITALIZATION:: weakness PAST MEDICAL HISTORY/PAST SURGICAL HISTORY:: Medical History (Updated 09/18/20 @ 14:41 by Promise Simeon NP). Anorexia. Eye degeneration. Gout. We will check a uric acid along with a CBC and CMP. Hearing loss. Does not have a hearing aid but seems to function okay. Osteoarthritis (08/07/13). Right Hip. He does not want any treatment for this at present. He does not want any further x-rays. PREVIOUS FUNCTIONAL STATUS/SOCIAL/FAMILY SUPPORTS:: Raul lives in [facility] with his Veena. They had one child who is now . Rhys ambulates with the assistance of 2 canes. He is otherwise independent with his ADLs. Veena is in good health and helps care for Rhys. Per Veena, he began to get forgetful about 6 months ago. She states that he is worse in the morning and clears as the day progresses. They receive no community services. CURRENT FUNCTIONAL STATUS:: Raul has dementia and is unable to cooperate in a conversation. Today he had a syncopal/CVA like episode while sitting up in a chair and a stroke alert was called. He remains confused and resistant to much of the care attemptd. CM has tried numerous times, unsuccessfully, to reach his . She did eventually reply to a voicemail with a voicemail giving her cell phone number but it is blocked from receiving callls. ADVANCE DIRECTIVES:: none Has patient been provided with info about the portal/API?: No Did the patient sign up for the portal?: No CODE STATUS:: Full Code INSURANCE COVERAGE / FINANCIAL ISSUES:: Medicare. AARP CURRENT HOME/COMMUNITY SERVICES/EQUIPMENT:: none PRIMARY CARE PHYSICIAN:: Luz Townsend POTENTIAL DISCHARGE NEEDS:: Follow up with PCP and discharge plan of care PATIENT/FAMILY EDUCATION NEEDS:: Discharge plan, follow up, limitations, Ask Me Three TRANSPORTATION:: to be determined by course and disposition PLAN:: Discharge plan unclear at this time. Likely he jamey return home with new home health services. CM will continue to support Rhys and Veena and assess for ongoing discharge planning needs and concerns.
--- NOTE | 2020-09-19 12:15 | RT.EKG_ITS ---
APPROVED REPORT Exam: Resting ECG Patient Location: I HR:66 bpm ECG Measurements Heart Rate 66 AXIS MO 179 P 59 QRSd 102 QRS 25 QT 423 T 57 QTc 444 Conclusion Sinus rhythm...normal P axis, V-rate 60- 99 Atrial premature complexes...SV complexes w/ short R-R intvls Probable left atrial enlargement...P >50mS, <-0.10mV V1
--- NOTE | 2020-09-19 12:29 | W.PM.PROGNOT ---
Date of Service Date of service: 09/19/20 Time of Service: 12:29 Assessment and Plan Assessment and plan (1) Transient neurologic deficit: Start date: 09/19/20 Start time: 13:55 Status: Acute Assessment and plan: Patient had episode of neurological deficit similar to CVA with syncopal episode while sitting in chair, unresponsive period and facial droop, unable to obtain NIH scale score due to lack of cooperation. STROKE alert called, CTA done IMPRESSION: Intradural left vertebral artery is diminutive and could be hypoplastic , however severe stenosis could not be excluded. Remaining arteries of the head demonstrates no high-grade stenosis, although evaluation is mildly limited due to decreased bolus contrast and motion degradation. IMPRESSION: 1. No hemodynamically significant stenosis in the bilateral internal carotid arteries or vertebral arteries, although the evaluation is mildly limited due to motion degradation. 2. No acute intracranial abnormality. 3. Moderate white matter hypodensity which might reflect chronic microvascular ischemic disease. There is chronic lacunar infarction in the right thalamus. Patient was also found to have been hypotensive. Bolus given of 500, telemetry place, EKG done SR with PAC, troponin normal, BS of 119. After returning from CT symptoms resolved. No TPA was given, Likely this was due different possibilities, flomax, seroquel, vagal response. He will remain on m/s with telemetry at this time Neurology consult placed. (2) Syncope: Start date: 09/19/20 Start time: 14:01 Status: Acute Assessment and plan: Found in chair by nursing unresponsive attempted sternal rub patient unresponsive approx 20 mins per nursing. Telemetry placed as above. Qualifiers: Syncope type: unspecified Qualified Code(s): R55 - Syncope and collapse (3) CAP (community acquired pneumonia): Start date: 09/19/20 Start time: 14:06 Status: Acute Assessment and plan: Found by abd and pelvic CT. opacity right middle lobe and both lower lobes may represent atelectasis or pneumonia, given leukocytosis will treat with with zosyn and doxy, (4) Weakness: Start date: 09/19/20 Start time: 14:08 Status: Acute Assessment and plan: R/o cardiac, Echo pending for monday on teley PT/OT (5) UTI (urinary tract infection): Start date: 09/19/20 Start time: 14:09 Status: Acute Assessment and plan: Found SUPPLY CONTROLLER, urine culture pending. Started on ceftriaxone 1 gm Morel placed Flomax dcd in setting of syncopal episode. Qualifiers: Urinary tract infection type: site unspecified Hematuria presence: without hematuria Qualified Code(s): N39.0 - Urinary tract infection, site not specified (6) Anxiety: Start date: 09/19/20 Start time: 14:13 Status: Chronic Assessment and plan: Severely anxious. Did well with valium however due to episode today hesitant to continue will hold off and try atarax, or other techniques of soothing. (7) Memory deficit: Start date: 09/19/20 Start time: 14:17 Status: Acute Assessment and plan: mild to moderate dementia (8) Hypertension: Start date: 09/19/20 Start time: 14:17 Status: Chronic Assessment and plan: No currently on anything, will start low dose lisinopril on hold at this time due to bp Qualifiers: Hypertension type: essential hypertension Qualified Code(s): I10 - Essential (primary) hypertension (9) Hyperlipidemia: Start date: 09/19/20 Start time: 14:18 Status: Acute Assessment and plan: Per history HLD, but not currently on anything will check lipid panel in am Qualifiers: Hyperlipidemia type: unspecified Qualified Code(s): E78.5 - Hyperlipidemia, unspecified (10) Discharge planning issues: Start date: 09/19/20 Start time: 14:18 Status: Acute Assessment and plan: Would like to return home when medically ready however, would benefit from SNIF above case discussed with Dr. More, [facility] Care time with Patient 65 mins Subjective Subjective Patient reports: other Interval history since last seen: Went to evaluate patient, he had a syncopal episode in chair with BP in 80's systolic, he was unresponsive. when he came through he did not know what had happened, nursing attempted sternal rub he was unresponsive for approx 20 mins per nursing. Very poor historian with little known history he was not cooperative with full exam unable to obtain full NIH scale but he did have left facial droop that was new with drooling therefore stroke protocol was initiated. CT ordered, results pending, CTA of head and neck IMPRESSION: Intradural left vertebral artery is diminutive and could be hypoplastic , however severe stenosis could not be excluded. Remaining arteries of the head demonstrates no high-grade stenosis, although evaluation is mildly limited due to decreased bolus contrast and motion degradation. IMPRESSION: 1. No hemodynamically significant stenosis in the bilateral internal carotid arteries or vertebral arteries, although the evaluation is mildly limited due to motion degradation. 2. No acute intracranial abnormality. 3. Moderate white matter hypodensity which might reflect chronic microvascular ischemic disease. There is chronic lacunar infarction in the right thalamus. Lipid panel Total choles 139, HDL 57, ldl 72 triglycerides 52. BS at the time 119, patient given 500 bolus with repeat bp 121/64, upon return to the floor facial droop resolved, therefore no TPA will be given. Exam Const General: cooperative, frail appearing and ill appearing chronically Nutritional Appearance: underweight Orientation: alert and oriented to person [facility] Head: normal to inspection, normocephalic and atraumatic Ears: hearing grossly normal bilaterally Face and sinus: normal facial exam and face symmetric Mouth: moist mucous membranes Eyes Visual Colin: visual colin abnormal by confrontation and abnormal by confrontation Eyelids: eyelids normal Conjunctivae: conjunctivae normal Sclera: sclerae normal Pupils: PERRL EOM: EOM intact bilaterally Neck Neck: normal visual inspection and no JVD Thyroid: abnormal thyroid and other (palpable) Lymphatic: no lymphadenopathy noted Resp Effort & Inspection: normal respiratory effort Auscultation: clear to auscultation bilaterally Cardio Jugular venous pressure: no JVD Rate: regular rate Rhythm: regular rhythm Heart Sounds: S1 normal and S2 normal GI Inspection: scaphoid Palpation: soft and no hepatosplenomegaly Auscultation: normal bowel sounds Back/Spine/Pelvis Back: no CVA tenderness Thoracic/Lumbar Spine: thoracic and lumbar spine normal to inspection Skin General skin exam: no rashes or lesions noted Neuro General: patient alert, not oriented x3 and patient confused Cognition: abnormal cognition Speech: speech normal Extrem General: normal to inspection, full ROM and no clubbing, cyanosis or edema Psych Appearance: well kempt Mental Status: other (highly anxious) Speech and Movement: speech and movement normal Mood: other (highly anxious) Objective Last Vital Signs Temp 35.6 C L 09/19/20 08:05 Pulse 55 L 09/19/20 08:05 Resp 15 09/19/20 08:05 BP 121/64 09/19/20 08:05 Pulse Ox 98 09/19/20 08:05 Laboratory Results - last 24 hr 09/18/20 09/19/20 09/19/20 10:59 06:27 06:27 WBC RBC Hgb Hct MCV MCH MCHC RDW Plt Count MPV Immature Gran % Neutrophils % Lymphocytes % Monocytes % Eosinophils % Basophils % Nucleated RBC % Absolute Neutrophils Absolute Lymphocytes Absolute Monocytes Absolute Eosinophils Absolute Basophils Sodium 135 L Potassium 3.1 L Chloride 98 Carbon Dioxide 31.0 Anion Gap 6.0 BUN 16 Creatinine 0.87 Estimated GFR/1.73 m2 >= 60.00 Glucose 111 H Calcium 8.7 Magnesium 1.9 Iron TIBC Transferrin % Sat Ferritin 377 Triglycerides 52 Total Cholesterol 139 LDL Cholesterol, Calc 72 HDL Cholesterol 57 Folate SARS-CoV-2 (PCR) Negative Nasopharyn COVID-19 PCR Not Applicable Ref Test Perform Site [facility] lab 09/19/20 09/19/20 09/19/20 06:27 06:27 06:27 WBC 13.75 H D RBC 3.40 L Hgb 11.6 L Hct 33.9 L MCV 99.7 H MCH 34.1 H MCHC 34.2 RDW 12.3 Plt Count 171 MPV 10.2 Immature Gran % 0.5 Neutrophils % 83.0 Lymphocytes % 8.8 Monocytes % 7.2 Eosinophils % 0.4 Basophils % 0.1 Nucleated RBC % 0 Absolute Neutrophils 11.41 H Absolute Lymphocytes 1.21 Absolute Monocytes 0.99 H Absolute Eosinophils 0.06 Absolute Basophils 0.01 Sodium Potassium Chloride Carbon Dioxide Anion Gap BUN Creatinine Estimated GFR/1.73 m2 Glucose Calcium Magnesium Iron 22 L TIBC 115 L Transferrin % Sat 19 L Ferritin Triglycerides Total Cholesterol LDL Cholesterol, Calc HDL Cholesterol Folate 17.5 SARS-CoV-2 (PCR) Nasopharyn COVID-19 PCR Ref Test Perform Site
[2020-09-19] MEDS: Omnipaque 350 MG/ML 100 ML BTL IJ (12:45)
[2020-09-19] MEDS: Normal Saline - Diluent 50 ML VIAL IV (12:47)
[2020-09-19 12:53] LABS: Troponin I < 0.05 ng/mL (<0.06)
[2020-09-19] MEDS: Normal Saline 250 ML 500 ML IV (13:00)
[2020-09-19 13:19] LABS: Vitamin B12 140 pg/mL (193-986)
--- NOTE | 2020-09-19 13:41 | DI.VRAD_ITS ---
PROCEDURE INFORMATION: Exam: CT Angiography Head With Contrast, Arteries Exam date and time: 09/19/2020 12:46 PM Age: 84 years old Clinical indication: Other: Syncopal episode TECHNIQUE: Imaging protocol: Computed tomography angiography of the head with intravenous contrast. 3D rendering (Not supervised by radiologist): MIP and/or 3D reconstructed images were created by the technologist. Radiation optimization: All CT scans at this facility use at least one of these dose optimization techniques: automated exposure control; mA and/or kV adjustment per patient size (includes targeted exams where dose is matched to clinical indication); or iterative reconstruction. Contrast material: OMNIPAQUE 350; Contrast volume: 85 ml; Contrast route: IV; COMPARISON: No relevant prior studies available. FINDINGS: Right Carotid Artery: There is normal enhancement of internal carotid artery in petrous, lacerum, cavernous and supraclinoid segments. There are calcifications in the carotid siphons without hemodynamically significant stenosis. There is normal carotid terminal and proximal MCA and JOSLYN bilaterally. Left Carotid Artery: There is normal enhancement of internal carotid artery in petrous, lacerum, cavernous and supraclinoid segments. There are calcifications in the carotid siphons without hemodynamically significant stenosis. There is normal carotid terminal and proximal MCA and JOSLYN bilaterally. Posterior circulation: Intradural left vertebral artery is diminutive with diminished enhancement. Right intradural vertebral artery is normal. Vertebrobasilar junction, basilar artery and proximal cerebral arteries are grossly normal without high-grade stenosis or occlusion. There is no major vessel cutoff or aneurysm. IMPRESSION: Intradural left vertebral artery is diminutive and could be hypoplastic , however severe stenosis could not be excluded. Remaining arteries of the head demonstrates no high-grade stenosis, although evaluation is mildly limited due to decreased bolus contrast and motion degradation. PROCEDURE INFORMATION: Exam: CT Angiography Neck With Contrast Exam date and time: 09/19/2020 12:46 PM Age: 84 years old Clinical indication: Other: Syncopal episode TECHNIQUE: Imaging protocol: Computed tomography angiography of the neck with intravenous contrast. 3D rendering (Not supervised by radiologist): MIP and/or 3D reconstructed images were created by the technologist. Radiation optimization: All CT scans at this facility use at least one of these dose optimization techniques: automated exposure control; mA and/or kV adjustment per patient size (includes targeted exams where dose is matched to clinical indication); or iterative reconstruction. Contrast material: OMNIPAQUE 350; Contrast volume: 85 ml; Contrast route: IV; COMPARISON: No relevant prior studies available. FINDINGS: Evaluation is limited in the region of bifurcation and proximal internal carotid arteries due to motion degradation. There are mild patchy calcifications in the left sided arch of aorta. There is a calcified plaque noted at the origin and proximal left subclavian artery without hemodynamically significant stenosis. There are calcifications in the brachiocephalic trunk and the proximal right subclavian artery without measurable stenosis. Right carotid Artery. There is normal enhancement in common carotid artery. There is mild calcified and noncalcified plaque in the carotid bifurcation and the proximal internal carotid artery with less than 50% stenosis. Left carotid Artery. There is mild calcification of the distal left common carotid artery. There is calcified and noncalcified plaque in the bifurcation and the proximal left internal carotid artery with less than 50% stenosis, however evaluation is mildly limited in this region due to degradation caused by motion. Vertebral arteries. There is a calcified plaque at the origin of the right vertebral artery without measurable stenosis. The right vertebral artery is tortuous in its course, however no measurable stenosis is noted in the region of the neck. Left vertebral artery is nondominant. There are patchy calcifications noted in the proximal left vertebral artery without hemodynamically significant stenosis. The course is mildly tortuous. There is no measurable stenosis in bilateral vertebral arteries in the neck. Additional findings: There are mild bilateral pleuroparenchymal apical thickening and scarring. There are peripheral reticulation and thickening noted which could be due to chronic interstitial lung disease. There are degenerative spondylotic changes in the cervical spine. No high-grade central stenosis is identified. Visualized brain demonstrates no acute intracranial abnormality. Patiño-white matter differentiation is normal. There is no mass effect or midline shift. There is moderate burden of confluent and patchy foci of periventricular white matter hypodensity which might reflect chronic microvascular ischemic disease. There is chronic lacunar infarction in the right thalamus. IMPRESSION: 1. No hemodynamically significant stenosis in the bilateral internal carotid arteries or vertebral arteries, although the evaluation is mildly limited due to motion degradation. 2. No acute intracranial abnormality. 3. Moderate white matter hypodensity which might reflect chronic microvascular ischemic disease. There is chronic lacunar infarction in the right thalamus. REFERENCES: NASCET CRITERIA. The degree of internal carotid artery stenosis is based on NASCET criteria. Normal is no stenosis. Mild is less than 50% stenosis. Moderate is 50-69% stenosis. Severe is 70% to 99% stenosis. Total occlusion is no detectable patent lumen. Dictated and Authenticated by: Patrick Lafleur MD. Ordering:MARK Virgen MD
--- NOTE | 2020-09-19 14:13 | PT.INTREAT ---
Date of service: 09/19/20 Time of Service: 10:45 PT Notes Visit Reasons: WEAKNESS, UTI Inpatient Physical Therapy Treatment Note [facility] Date: 09/19/2020 PRECAUTIONS:Fall, standard, activity as tolerated SUBJECTIVE: Stated he is okay with walking and doing exercises. Still very weak. OBJECTIVE: PAIN: No complaints of pain. BED MOBILITY/TRANSFERS Up in chair with nursing. Sit-stand: CGA Stand-sit: CGA GAIT Assistive Device: FWW Weight bearing: FWB Assist: CGA x 2 Distance: 50ft, complained of feeling dizzy and light headed while walking but better once sitting again. THEREX: Able to perform ankle pumps, LAQs, seated hip flexion and hip abd/adduction for 2 sets of 10 reps. ASSESSMENT: Tolerated today's PT session well. Very nervous. PLAN: Continue to focus on improved strengthening and functional mobility as per supervising PT's POC. TREATMENT CODE/TIME: 16792 x 2, 10:45 to 11:15 (30')
[2020-09-19] MEDS: hydrOXYzine HCL 25 MG TAB PO ×2 (14:30→19:17)
[2020-09-19] MEDS: Potassium Chloride 10 MEQ TABCR PO (14:30)
[2020-09-20] VITALS (7 sets, daily range): BP systolic 121–139; BP diastolic 67–81; PULSE 60–113; RESP 16–24; TEMP 35.6–36.6; O2SAT 95–100
--- NOTE | 2020-09-20 | DI.US_ITS ---
EXAM: US RENAL CLINICAL HISTORY: UTI, retention TECHNIQUE: Ultrasound of both kidneys performed using standard protocol. COMPARISON: US US OR ANESTHESIA from 09/19/2020 FINDINGS: RIGHT KIDNEY: Measures 9 cm in length. No cysts evident. Normal cortical thickness and corticomedullary differentia tion .No solid masses No intrarenal calculi nor hydronephrosis. LEFT KIDNEY: Measures 10 cm in length. No cysts evident. Normal cortical thickness and corticomedullary different iaion. No solids masses. No intrarenal calculi nor hydonephrosis. URINARY BLADDER: The bladder is decompressed around a Morel catheter. Therefore bladder cannot be assessed Incidentally noted is a right pleural effusion IMPRESSION: 1. No significant ultrasound findings in the kidneys. 2. Significant right pleural effusion noted. Morel catheter in the bladder. The bladder is decompressed. DATA REPOSITORY:
[2020-09-20] MEDS: Normal Saline 1,000 ML 100 ML IV (02:37)
[2020-09-20] MEDS: PIPERACILLIN/TAZO 3.375 GM in Normal Saline 50 ML IVPB ×2 (03:46→10:13)
[2020-09-20] MEDS: Heparin 5,000 UNITS/ML VIAL 5000 UNITS SC ×3 (03:46→20:35)
[2020-09-20] MEDS: diazePAM 2 MG TAB PO ×5 (03:46→20:33)
[2020-09-20] MEDS: hydrOXYzine HCL 25 MG TAB PO ×3 (03:47→22:27)
[2020-09-20] MEDS: Normal Saline Flush 10 ML SYR IVP ×2 (09:27→11:12)
[2020-09-20 09:31] LABS: Abs Immature Grans 0.04 10^3/uL (0.0-0.06); Absolute Basophil Count 0.02 10^3/uL (0.0-0.2); Absolute Eosinophil Count 0.12 10^3/uL (0.0-0.7); Absolute Lymphocyte Count 0.84 10^3/uL (1.2-3.4); Absolute Monocyte Count 0.58 10^3/uL (0.1-0.8); Absolute Neutrophil Count 3.71 10^3/uL (1.2-6.7); Basophils % 0.4; Eosinophils % 2.3; HCT 30.9 % (40.0-50.0); HGB 10.5 g/dL (13.5-17.5); Immature Grans % 0.8; Lymphocytes % 15.8; MCH 34.3 pg (27.0-33.0); MPV 10.1 fL (8.0-11.0); Monocytes % 10.9; Neutrophils % 69.8; Nucleated RBC 0 %; Platelet Count 142 10^3/uL (130-400); RBC 3.06 10^6/uL (4.36-5.78); RDW 12.7 % (11.8-14.1); RDW-SD 46.6 fL
[2020-09-20 09:32] LABS: WBC 5.32 10^3/uL (4.4-10.8)
[2020-09-20 09:46] LABS: Anion Gap 6.4 mmol/L (3-11); BUN 13 mg/dL (7-18); CO2 25.6 mmol/L (21.0-32.0); CREATININE 0.79 mg/dL (0.70-1.30); Calcium 8.6 mg/dL (8.5-10.1); Chloride 103 mmol/L (98-107); Glucose 102 mg/dL (74-106); Magnesium 1.8 mg/dL (1.8-2.4); Sodium 135 mmol/L (136-145)
[2020-09-20 09:49] LABS: Potassium 4.4 mmol/L (3.5-5.1)
--- NOTE | 2020-09-20 09:51 | PDOC.CMPRO ---
- If Service Date Differs Date of service: 09/20/20 Time of Service: 09:52 Care Management Progress Note S/O: Rhys was sitting up in bed when CM met with him. He was moaning and shaking and repeating over and over that he is very nervous and can't help himself. He stated that he didn't want to be alone and screams out whenever someone leaves the room. He shared that this has been going on for around 6 months and he knows it is his nerves. He feels like he is dying and can't breathe and can't swallow. He informed CM that he takes OTC nerve pills , called resolve. CM was finally able to reach his Veena today and she confirmed the time line of symptoms as well as the OTC medication he takes. She provided her sister's phone number as an alternate was to reach her. The sister's name is Brinda and her phone number is . A: Rhys is an 84 year old man admitted on 09/18/20 with weakness and a UTI P: Rhys will most likely return home with new home health services, although he may need placement for a time if symptoms do not resolve. He will follow up with his PCP and plan of care and transport with family. CM will continue to support Rhys and his Veena and assess for discharge planning needs and concerns.
[2020-09-20 10:02] LABS: Procalcitonin < 0.1 ng/mL
--- NOTE | 2020-09-20 10:23 | PGE_ITS ---
Date of Service Date of service: 09/20/20 Time of Service: 10:23 Assessment and Plan Assessment and plan (1) Transient neurologic deficit: Start date: 09/20/20 Start time: 10:25 Status: Acute Assessment and plan: Unresponsive episode yesterday. Neuro consult for tomorrow, MRI for tomorrow. Telemetry in place CTA revealing IMPRESSION: Intradural left vertebral artery is diminutive and could be hypoplastic , however severe stenosis could not be excluded. Remaining arteries of the head demonstrates no high-grade stenosis, although evaluation is mildly limited due to decreased bolus contrast and motion degradation. IMPRESSION: 1. No hemodynamically significant stenosis in the bilateral internal carotid arteries or vertebral arteries, although the evaluation is mildly limited due to motion degradation. 2. No acute intracranial abnormality. 3. Moderate white matter hypodensity which might reflect chronic microvascular ischemic disease. There is chronic lacunar infarction in the right thalamus. Normotensive (2) Syncope: Start date: 09/20/20 Start time: 10:30 Status: Resolved Assessment and plan: Continue to monitor on teley echo pending for monday Qualifiers: Syncope type: unspecified Qualified Code(s): R55 - Syncope and collapse (3) Weakness: Start date: 09/20/20 Start time: 10:36 Status: Acute Assessment and plan: R/o cardiac, Echo pending for monday on teley PT/OT (4) CAP (community acquired pneumonia): Start date: 09/20/20 Start time: 10:30 Status: Acute Assessment and plan: Found by abd and pelvic CT. opacity right middle lobe and both lower lobes may represent atelectasis or pneumonia, will treat with with ceftiraxone day1 and doxy day 2 he did receive one day of zosyn however given lack of fever no leukocytosis, no cough no procal, I don't feel zosyn is necessary at this time for CAP, Leukocytosis has resolved. 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 coli Started on ceftriaxone 1 gm Morel placed Flomax dcd in setting of syncopal episode. Qualifiers: Urinary tract infection type: site unspecified Hematuria presence: without hematuria Qualified Code(s): N39.0 - Urinary tract infection, site not specified (6) Anxiety: Start date: 09/20/20 Start time: 10:38 Status: Chronic Assessment and plan: Severely anxious. Monitored overnight for any further episodes, given no further episodes will give valium for anxiety however will start on remeron for anxiety as well and start to wean valium. (7) Memory deficit: Start date: 09/20/20 Start time: 10:39 Status: Acute Assessment and plan: question of mild to moderate dementia however states that patient wakes up confused but improves through out the day, however he does take melatonin at night and does take resolve over the counter pills for anxiety in which she states he takes like candy (8) Hypertension: Start date: 09/20/20 Start time: 10:42 Status: Chronic Assessment and plan: No currently on anything, will start low dose lisinop ril on hold at this time due to bp, normotensive Qualifiers: Hypertension type: essential hypertension Qualified Code(s): I10 - Essential (primary) hypertension (9) Hyperlipidemia: Start date: 09/20/20 Start time: 10:43 Status: Acute Assessment and plan: Per history HLD, but not currently on anything will check lipid panel in am Qualifiers: Hyperlipidemia type: unspecified Qualified Code(s): E78.5 - Hyperlipidemia, unspecified (10) Discharge planning issues: Start date: 09/20/20 Start time: 10:43 Status: Acute Assessment and plan: Would like to return home when medically ready how ever, would benefit from SNIF above case discussed with Dr. More, [facility] Care time with Patient 65 mins Subjective Subjective Patient reports: other Interval history since last seen: Continues to be highly anxious. Will add remeron to regimen to help with anxiety and appetite. He continues to ask for something for anxiety. Neuro consulted. MRI ordered for tomorrow. Will reach out to surgery after speaking with neuro for possible EGD. Continue treatment for pneumo. Exam Const General: cooperative, frail appearing and ill appearing chronically Nutritional Appearance: underweight Orientation: alert and oriented to person [facility] Head: normal to inspection, normocephalic and atraumatic Ears: hearing grossly normal bilaterally Face and sinus: normal facial exam and face symmetric Mouth: moist mucous membranes Eyes Visual Colin: visual colin abnormal by confrontation and abnormal by confrontation Eyelids: eyelids normal Conjunctivae: conjunctivae normal Sclera: sclerae normal Pupils: PERRL EOM: EOM intact bilaterally Neck Neck: normal visual inspection and no JVD Thyroid: abnormal thyroid and other (palpable) Lymphatic: no lymphadenopathy noted Resp Effort & Inspection: normal respiratory effort Auscultation: clear to auscultation bilaterally Cardio Jugular venous pressure: no JVD Rate: regular rate Rhythm: regular rhythm Heart Sounds: S1 normal and S2 normal GI Inspection: scaphoid Palpation: soft and no hepatosplenomegaly Auscultation: normal bowel sounds Back/Spine/Pelvis Back: no CVA tenderness Thoracic/Lumbar Spine: thoracic and lumbar spine normal to inspection Skin General skin exam: no rashes or lesions noted Neuro General: patient alert, not oriented x3 and patient confused Cognition: abnormal cognition Speech: speech normal Extrem General: normal to inspection, full ROM and no clubbing, cyanosis or edema Psych Appearance: well kempt Mental Status: other (highly anxious) Speech and Movement: speech and movement normal Mood: other (highly anxious) Objective Last Vital Signs Temp 36 C L 09/20/20 08:26 Pulse 61 09/20/20 08:26 Resp 16 09/20/20 08:26 BP 139/81 09/20/20 08:26 Pulse Ox 98 09/20/20 08:26 Laboratory Results - last 24 hr 09/19/20 09/19/20 09/20/20 06:27 12:29 09:20 WBC RBC Hgb Hct MCV MCH MCHC RDW Plt Count MPV Immature Gran % Neutrophils % Lymphocytes % Monocytes % Eosinophils % Basophils % Nucleated RBC % Absolute Neutrophils Absolute Lymphocytes Absolute Monocytes Absolute Eosinophils Absolute Basophils Sodium 135 L Potassium 4.4 D Chloride 103 Carbon Dioxide 25.6 Anion Gap 6.4 BUN 13 Creatinine 0.79 Estimated GFR/1.73 m2 >= 60.00 Glucose 102 Calcium 8.6 Magnesium 1.8 Troponin I < 0.05 Vitamin B12 140 L Procalcitonin 09/20/20 09/20/20 09:20 09:20 WBC 5.32 D RBC 3.06 L Hgb 10.5 L Hct 30.9 L MCV 101.0 H MCH 34.3 H MCHC 34.0 RDW 12.7 Plt Count 142 MPV 10.1 Immature Gran % 0.8 Neutrophils % 69.8 Lymphocytes % 15.8 Monocytes % 10.9 Eosinophils % 2.3 Basophils % 0.4 Nucleated RBC % 0 Absolute Neutrophils 3.71 Absolute Lymphocytes 0.84 L Absolute Monocytes 0.58 Absolute Eosinophils 0.12 Absolute Basophils 0.02 Sodium Potassium Chloride Carbon Dioxide Anion Gap BUN Creatinine Estimated GFR/1.73 m2 Glucose Calcium Magnesium Troponin I Vitamin B12 Procalcitonin < 0.1
--- NOTE | 2020-09-20 11:03 | PT.INNT ---
Date of service: 09/20/20 PT Notes Visit Reasons: WEAKNESS, UTI NON TREATMENT NOTE: 09/20/20 THis Therapist has made 2 attempts to see this patient. He states that he is too anxious to perform any type of activity right now. He states that he does not want to get out of bed or move because people will see his private parts. He states that he is going to pass out because he is so nervous and can barely breath. Attempt was made for some distraction techniques to calm down patient's nerves by asking about his past which he does elaborate. However, when the conversation gets back to even isolated to bed evaluation techniques, patient states he is now getting pain through the legs, but can not do anything until he is properly washed up. Will see if patient is in any better sort for Evaluation tomorrow morning.
[2020-09-20] MEDS: Ondansetron 4 MG/2 ML VIAL IVP (11:11)
[2020-09-20] MEDS: Acetaminophen 325 MG TAB 650 MG PO (11:11)
[2020-09-20] MEDS: DOXYCYCLINE 100 MG in Normal Saline 100 ML IVPB ×2 (11:24→22:28)
[2020-09-20] MEDS: Gabapentin 100 MG CAP PO (15:49)
[2020-09-20] MEDS: Normal Saline 500 ML 1000 ML IV (15:50)
[2020-09-20 16:20] LABS: *AMPHETAMINES SCREEN URINE Negative (Negative); *BARBITURATES SCREEN URINE Negative (Negative); *BENZODIAZEPINES SCREEN URINE POSITIVE (Negative); Cannabinoids THC Negative (Negative); Cocaine Screen,Urine Negative (Negative); METHADONE URINE SCREEN Negative (Negative); OPIATES URINE SCREEN Negative (Negative); Tricyclic Antidepressants Negative (Negative)
--- NOTE | 2020-09-20 16:37 | DI.VRAD_ITS ---
PROCEDURE INFORMATION: Exam: US Retroperitoneal; Complete; Kidneys and Bladder Exam date and time: 09/20/2020 4:13 PM Age: 84 years old Clinical indication: Other: UTI, retention TECHNIQUE: Imaging protocol: Real-time ultrasound of the retroperitoneum with image documentation. Complete exam focused on the kidneys and bladder. COMPARISON: CT ABDOMEN PELVIS WO 09/18/2020 3:46 PM FINDINGS: The right and left kidneys measure 9 and 10 cm in length respectively. No hydronephrosis. No renal cysts or masses. No shadowing calculi. The urinary bladder is decompressed. There is a right pleural effusion. IMPRESSION: 1. No hydronephrosis. 2. Right pleural effusion. Dictated and Authenticated by: Eliud Silva MD. Ordering:MARK Virgen MD
[2020-09-20] MEDS: Normal Saline 1,000 ML 150 ML IV (17:02)
[2020-09-20] MEDS: cefTRIAXone 1 GM/50 ML BAG IVPB (17:03)
--- NOTE | 2020-09-20 19:13 | NUR.NOTE ---
Nursing Note: At 0955 on 09/20/20, this RN answered a call from the pt.'s , Veena Merchant. RN updated pt.'s regarding the pt.'s orientation, VS, pain level, head to toe assessment, plan of care, etc. Pt.'s verbalized understanding and presented with a few questions that were answered. RN will reassess as necessary.
[2020-09-20] MEDS: Mirtazapine 15 MG TAB PO (22:27)
--- NOTE | 2020-09-21 | DI.US_ITS ---
APPROVED REPORT EXAM: Comprehensive 2D, Doppler, and color-flow Echocardiogram Patient Location: In-Patient Room/Bed: 228 Graduate Engineer: Adela Queen RDCS (AE) Indications: R/O CHF, Syncope, HTN Other Information Study Quality: Fair. Technically limited study due to inability to position patient, uncooperative pa tient. Conclusion Left Ventricle : The left ventricle is normal size. Left ventricular systolic function is borderline. There is normal left ventricular wall thickness. There is normal LV segmental wall motion. LVEF is 5 0%. Diastolic function is indeterminate. Right Ventricle : Right ventricle is not well visualized. Right ventricular systolic function could n ot be assessed. Atria : The left atrium size is normal. The right atrium size is normal. Aortic Valve : The Aortic valve is sclerotic. Aortic valve is probably trileaflet. There is no aortic valvular stenosis. Mild aortic regurgitation. Mitral Valve : Mild mitral annular calcification. Mild mitral regurgitation. No evidence of mitral va lve stenosis. Great Vessels : The aortic root is normal in size. Ascending aorta is not well visualized. The IVC co llapses <50% with normal respiration. Please see remainder of study for further details. Wall motion Left Ventricle The left ventricle is normal size. Left ventricular systolic function is borderline. There is normal left ventricular wall thickness. There is normal LV segmental wall motion. Diastolic function is inde terminate. There is no ventricular septal defect visualized. LVEF is 50%. Right Ventricle Right ventricle is not well visualized. Right ventricular systolic function could not be assessed. Atria The left atrium size is normal. The right atrium size is normal. The interatrial septum is intact wit h no evidence for an atrial septal defect. Aortic Valve The Aortic valve is sclerotic. Aortic valve is probably trileaflet. There is no aortic valvular steno sis. Mild aortic regurgitation. Mitral Valve Mild mitral annular calcification. No evidence of mitral valve stenosis. Mild mitral regurgitation. Tricuspid Valve The tricuspid valve is normal in structure. There is no tricuspid valve stenosis. Trace tricuspid reg urgitation. Pulmonic Valve The pulmonary valve is normal in structure. There is no pulmonic valvular stenosis. There is no pulmo norris valvular regurgitation. Great Vessels The aortic root is normal in size. Ascending aorta is not well visualized. The IVC collapses <50% wit h normal respiration. Pericardium There is no pericardial effusion. 2D Dimensions IVSD d PLAX 0.91 cm M: 0.6-1.2 LV Vol A2C d MOD 97.4 mL LVPW d PLAX 0.96 cm M: 0.6 - 1.2 LV Vol A4C d MOD 92.1 mL LVID d PLAX 5.70 cm M: 4.2 - 5.8 LA vol/ BSA A2C s A-L 22.9 mL/m2 LVDs 4.30 cm M: 2.5 - 4.0 LA vol/ BSA A4C s A-L 17.5 mL/m2 Ao Root d 2.69 cm M: 3.1 - 3.7 LA Vol/ BSA Biplane s A-L 21.0 mL/m2 RA Area A4C 11.74 cm2 LA Area A4C s MOD 13.37 cm2 RA Vol/ BSA A4C s A-L 15.9 mL/m2 LA Area A2C s MOD 16.03 cm2 LV EF Teichholz 47.5 % LV EF A4C MOD 50.2 % LVEF (House's) 51.04 % M: 52 - 72 LV EF A2C MOD 50.4 % LV Volume 79.02 mL M: 62 - 150 LV EF Biplane MOD 51.0 % LV Volume Index 45.94 mL/m2 M: 34 - 74 SV 51.08 mL LV Vol Biplane MOD 100.1 mL SV Index 29.58 mL/m2 FS 24.15 % M-Mode TAPSE 2.06 cm (M/F) >1.7 LV Diastology MV E' medial 0.060 (>0.07 m/s) E/A Ratio 0.7 LV E/e MED 14.80 (<14) MV E Vmax 0.89 (0.4-1.3 m/s) MV E' lateral 0.095 (>0.1 m/s) MV A Vmax 1.35 (0.4-1.3 m/s) LV E/e LAT 9.45 (<14) MV E/A Ratio 0.64 MV E/E' medial 14.84 MV E/E' lateral 9.47 Aortic Valve LVOT Area 3.04 cm2 AoV Area Vmax 2.14 cm2 LVOT Vmax 1.27 m/s AoV Area/ BSA (Vmax) 1.24 cm2/m2 LVOT Mean Anil. 0.85 m/s DARLINE Mean Anil. 2.02 cm2 LVOT Peak Grad 6.4 mmHg DARLINE Mean Anil. Index 1.17 cm2/m2 LVOT Mean Grad 3.3 mmHg LVOT VTI 0.292 m LVOT Diam s 1.95 cm AoV Vmax 1.80 m/s Velocity Ratio 0.70 AoV Mean Anil. 1.28 m/s AoV Peak Grad 13.0 mmHg LVOT SV 88.76 mL AoV Mean Grad 7.3 mmHg AoV VTI 0.398 m AoV Area VTI 2.23 cm2 AoV Area/ BSA (VTI) 1.29 cm/m2 Mitral Valve MV DT 235 (160-240 msec) MV PHT 68 msec MV Area PHT 3.23 cm2 MV VTI 0.422 m MV VTI Annulus 0.441 m MV Area VTI 2.20 (4.0-6.0 cm2) Pulmonary Valve PV Vmax 1.06 (0.5-1.5 m/s) RVOT Peak Gr. 1.52 mmHg PV Peak Grad 4.5 mmHg RVOT Mean Gr. 0.85 mmHg PV Mean Grad 2.5 mmHg RVOT VTI 0.149 m PV VTI 0.229 m RVOT Vmax 0.62 m/s Tricuspid Valve TR Peak Grad 28.2 mmHg TR Vmax 2.66 m/s RA Pressure 8.00 mmHg RVSP (TR) 36.3 mmHg
[2020-09-21] MEDS: Normal Saline 1,000 ML 150 ML IV ×2 (00:46→07:31)
[2020-09-21] MEDS: hydrOXYzine HCL 25 MG TAB PO ×2 (04:38→20:22)
[2020-09-21] MEDS: Acetaminophen 325 MG TAB 650 MG PO (04:38)
[2020-09-21] MEDS: diazePAM 2 MG TAB PO ×3 (04:55→18:50)
[2020-09-21] MEDS: LORazepam 2 MG/ML VIAL 1 MG IVP (05:41)
[2020-09-21 07:01] VITALS: PULSE 83
[2020-09-21 08:53] LABS: Abs Immature Grans 0.02 10^3/uL (0.0-0.06); Absolute Basophil Count 0.01 10^3/uL (0.0-0.2); Absolute Eosinophil Count 0.11 10^3/uL (0.0-0.7); Absolute Lymphocyte Count 0.77 10^3/uL (1.2-3.4); Absolute Monocyte Count 0.57 10^3/uL (0.1-0.8); Absolute Neutrophil Count 3.44 10^3/uL (1.2-6.7); Basophils % 0.2; Eosinophils % 2.2; HCT 34.5 % (40.0-50.0); HGB 11.8 g/dL (13.5-17.5); Immature Grans % 0.4; Lymphocytes % 15.7; MCH 34.6 pg (27.0-33.0); MCHC 34.2 % (32.0-36.0); MCV 101.2 fL (80-95); MPV 10.2 fL (8.0-11.0); Monocytes % 11.6; Neutrophils % 69.9; Nucleated RBC 0 %; Platelet Count 144 10^3/uL (130-400); RBC 3.41 10^6/uL (4.36-5.78); RDW 12.9 % (11.8-14.1); RDW-SD 47.9 fL; WBC 4.92 10^3/uL (4.4-10.8)
[2020-09-21 08:59] LABS: Anion Gap 7.9 mmol/L (3-11); BUN 8 mg/dL (7-18); CO2 25.1 mmol/L (21.0-32.0); CREATININE 0.92 mg/dL (0.70-1.30); Calcium 8.4 mg/dL (8.5-10.1); Chloride 104 mmol/L (98-107); Glucose 130 mg/dL (74-106); Potassium 3.5 mmol/L (3.5-5.1); Sodium 137 mmol/L (136-145)
[2020-09-21 09:00] VITALS: BP 168/88; PULSE 80; RESP 20; TEMP 36.5; O2SAT 97
[2020-09-21 09:57] LABS: Ammonia < 10 umol/L (11-32)
--- NOTE | 2020-09-21 09:59 | W.SURGCON ---
Date of service: 09/21/20 Time of Service: 10:00 Assessment and Plan Assessment and plan (1) Anorexia: Status: Acute Assessment and plan: Anorexia suspected wt loss. Plan Upper and lower should be preformed in the same setting. Can schedule if the pt will consent. will order miralax bowel prep History of Present Illness History of Present Illness Chief Complaint: weakness Narrative: 84 yo Male admitted 09/18 with a Uti, weakness and demantia. Noted to be cachectic on admit. Wt loss difficult to document because of dementia. 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 He had a tia the day after admit which has been worked up and is resolved. Request for upper and lower endo to r/o malignancy placed. Pt is currently sedated and not able to speak. History obtained form the chart. Pt has not had an upper or lower endo in the past Review of Systems Narrative: pt non verbal [facility]LY [facility], [facility] Medical History (Updated 09/20/20 @ 10:30 by Promise Simeon NP) Anorexia Eye degeneration Gout We will check a uric acid along with a CBC and CMP. Hearing loss Does not have a hearing aid but seems to function okay. 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 He does not want any treatment for this at present. He does not want any further x-rays. Family History (Updated 08/08/18 @ 13:48 by Fatimah Kurtz) Mother Heart disease Father , AGE 83 No problems noted. Social History (Updated 08/08/18 @ 13:47 by Fatimah Kurtz) Smoking/Tobacco Use Status: Former Tobacco Use Quit Date: 08/28/87 Smoking risk assessment performed?: Yes Alcohol Intake: former Substance use type: does not use Frequency: does not exercise Rohini/Uatsdin: No preference Special rohini needs: No Do you feel safe at home: Yes Do you feel safe in your relationship?: Yes Exam GI Inspection: normal to inspection Palpation: soft Results Last Vital Signs Temp 97.7 F 09/21/20 09:00 Pulse 80 09/21/20 09:00 Resp 20 09/21/20 09:00 BP 168/88 H 09/21/20 09:00 Pulse Ox 97 09/21/20 09:00 Labs Result diagrams: 09/21/20 08:36 09/21/20 08:36 Labs: Laboratory Results - last 24 hr 09/20/20 09/20/20 09/21/20 09:20 15:58 08:36 WBC RBC Hgb Hct MCV MCH MCHC RDW Plt Count MPV Immature Gran % Neutrophils % Lymphocytes % Monocytes % Eosinophils % Basophils % Nucleated RBC % Absolute Neutrophils Absolute Lymphocytes Absolute Monocytes Absolute Eosinophils Absolute Basophils Sodium 137 Potassium 3.5 Chloride 104 Carbon Dioxide 25.1 Anion Gap 7.9 BUN 8 Creatinine 0.92 Estimated GFR/1.73 m2 >= 60.00 Glucose 130 H Calcium 8.4 L Ammonia Procalcitonin < 0.1 Urine Opiates Screen Negative Urine Methadone Screen Negative Ur Barbiturates Screen Negative Ur Tricyclics Screen Negative Ur Amphetamines Screen Negative U Benzodiazepines Scrn Positive A Urine Cocaine Screen Negative Ur THC Screen Negative 09/21/20 09/21/20 08:36 09:43 WBC 4.92 RBC 3.41 L Hgb 11.8 L Hct 34.5 L MCV 101.2 H MCH 34.6 H MCHC 34.2 RDW 12.9 Plt Count 144 MPV 10.2 Immature Gran % 0.4 Neutrophils % 69.9 Lymphocytes % 15.7 Monocytes % 11.6 Eosinophils % 2.2 Basophils % 0.2 Nucleated RBC % 0 Absolute Neutrophils 3.44 Absolute Lymphocytes 0.77 L Absolute Monocytes 0.57 Absolute Eosinophils 0.11 Absolute Basophils 0.01 Sodium Potassium Chloride Carbon Dioxide Anion Gap BUN Creatinine Estimated GFR/1.73 m2 Glucose Calcium Ammonia < 10 L Procalcitonin Urine Opiates Screen Urine Methadone Screen Ur Barbiturates Screen Ur Tricyclics Screen Ur Amphetamines Screen U Benzodiazepines Scrn Urine Cocaine Screen Ur THC Screen
[2020-09-21] MEDS: DOXYCYCLINE 100 MG in Normal Saline 100 ML IVPB ×2 (10:14→22:26)
[2020-09-21 11:29] LABS: Transferrin 106 mg/dL (201-352)
[2020-09-21] MEDS: Heparin 5,000 UNITS/ML VIAL 5000 UNITS SC ×2 (13:03→20:23)
--- NOTE | 2020-09-21 13:06 | PCNE_ITS ---
Date of service: 09/21/20 Time of Service: 17:06 History of Present Illness History of Present Illness Chief Complaint: Weakness and weight loss Narrative: I was asked by Dr. More to see Martin. Carter is an 84-year-old man who came to the hospital a few days ago. He was weak, and cachectic. He has had multiple tests in the last 24 hours as well as consults. I am seeing him today to discuss goals of care and CODE STATUS. Staff states that he has been extremely confused and agitated over the last 24 hours with the exception of the last few hours when he was medicated to undergo testing such as MRIs. They state that he is extremely anxious and because of that very agitated. His Veena also states that he is very anxious. He does have a cadre in the room when I go to see him. Raul was able to answer the question why are you here? He said I am in [facility]. I am in the hospital. I am here because of a nervous problem. And I would like another pill. He then went on to say that he had had many tests t maribel and he was tired. He said he could not eat because he did not have his teeth. He spent much of our interview looking for the pill that he thought was in his hand. He understood that he had a catheter in place and that this was to help him urinate. He knew his 's name and said it quickly. 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 Consults Consult date: 09/21/20 Requesting physician: Anila More Assessment and Plan Assessment and plan (1) CAP (community acquired pneumonia): Status: Acute (2) Transient neurologic deficit: Status: Acute (3) UTI (urinary tract infection): Status: Acute Qualifiers: Urinary tract infection type: site unspecified Hematuria presence: without hematuria Qualified Code(s): N39.0 - Urinary tract infection, site not specified (4) Anxiety: Status: Chronic (5) B12 deficiency: Status: Acute (6) Lacerations of multiple sites of right arm: Status: Acute (7) Palliative care patient: Status: Acute Assessment and plan: 84-year-old man living with his at home. Very little medical care over the last several years. Came in with weakness, syncope and without his teeth. 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 I tried calling his Veena at 5:50 PM today. There was no answer. I did leave a message on the phone. Nursing also reports trying to get hold of clear without success. I know very little about this man, who is caring for him, how cognitively intact his is. His medications list vitamins. He talks about a nervous disorder and wants to have a pill. He is clearly better today after the Valium he had for his procedures that he had been last evening. I am concerned that he may be withdrawing from benzodiazepines and therefore should be given low doses on a scheduled basis. I also think calling the pharmacy that they have used in the past would be helpful to see if he is still getting these. I would be surprised if he is obtaining benzodiazepine without seeing a doctor. B12 deficiency this needs to be replaced and should be started immediately He has multiple small cuts on his hands?please update his tetanus The plan is for him to have endoscopy on Monday. We absolutely need to get delinquency prevention social worker involved to find out where María is at with her memory etc. I did discuss CODE STATUS just to see what he had to say. He understood what CPR was. He did not want to make a decision and said instead we will cross that bridge when we come to it Thank you very much for this consult I do plan to follow him while inpatient and then if he allows outpatient Review of Systems Unobtainable due to mental status (to some degree) Constitutional Constitutional: Reports anorexia, Reports weakness and Reports weight loss Eyes Eyes: Reports dry eyes ENT Ears, Nose, Mouth, and Throat: Reports disequilibrium Cardiovascular Cardiovascular: Denies chest pain and Denies dyspnea Respiratory Respiratory: Denies chest congestion and Denies dyspnea Gastrointestinal Gastrointestinal: Denies abdominal pain Genitourinary Genitourinary: Reports system reviewed and no additional complaints, except as documented (stated he has a cathater in place) Neurologic Neurologic: Reports confusion, Reports lack of coordination, Reports memory loss (per staff, denies), Reports disequilibrium and Reports weakness Psychiatric Psychiatric: Reports confusion Comments: I have a nervous condition [facility] Medical History (Updated 09/22/20 @ 07:51 by Larissa Murdock MD, [place]) Anorexia Eye degeneration Gout We will check a uric acid along with a CBC and CMP. Hearing loss Does not have a hearing aid but seems to function okay. 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 He does not want any treatment for this at present. He does not want any further x-rays. Family History (Updated 08/08/18 @ 13:48 by Fatimah Kurtz) Mother Heart disease Father , AGE 83 No problems noted. Social History (Updated 08/08/18 @ 13:47 by Fatimah Kurtz) Smoking/Tobacco Use Status: Former Tobacco Use Quit Date: 08/28/87 Smoking risk assessment performed?: Yes Alcohol Intake: former Substance use type: does not use Frequency: does not exercise Rohini/Muslim: No preference Special roihni needs: No Do you feel safe at home: Yes Do you feel safe in your relationship?: Yes Exam Narrative Exam Narrative: He is lying in bed. His right knee is bent where the catheter is secured. He constantly moves his right hand looking for the pill that he cannot find. He talks to me and looks me in the eye. The strength in both hands seem pretty equal. Neck Carotids: normal carotid upstroke Resp Effort & Inspection: able to speak in complete sentences Auscultation: diminished lung sounds Cardio Rate: regular rate Heart Sounds: murmur GI Palpation: soft and no hepatosplenomegaly General: other (cath in place) Extrem Left upper extremity: normal to inspection (hands have many cuts and old scars) Psych Speech and Movement: agitated Mood: anxious mood Attitude: cooperative Results Last Vital Signs Temp 97.7 F 09/21/20 09:00 Pulse 80 09/21/20 09:00 Resp 20 09/21/20 09:00 BP 168/88 H 09/21/20 09:00 Pulse Ox 97 09/21/20 09:00 Labs Result diagrams: 09/21/20 08:36 09/21/20 08:36 Labs: Laboratory Results - last 24 hr 09/19/20 09/20/20 09/21/20 06:27 15:58 08:36 WBC RBC Hgb Hct MCV MCH MCHC RDW Plt Count MPV Immature Gran % Neutrophils % Lymphocytes % Monocytes % Eosinophils % Basophils % Nucleated RBC % Absolute Neutrophils Absolute Lymphocytes Absolute Monocytes Absolute Eosinophils Absolute Basophils Sodium 137 Potassium 3.5 Chloride 104 Carbon Dioxide 25.1 Anion Gap 7.9 BUN 8 Creatinine 0.92 Estimated GFR/1.73 m2 >= 60.00 Glucose 130 H Calcium 8.4 L Transferrin 106 L Ammonia Urine Opiates Screen Negative Urine Methadone Screen Negative Ur Barbiturates Screen Negative Ur Tricyclics Screen Negative Ur Amphetamines Screen Negative U Benzodiazepines Scrn Positive A Urine Cocaine Screen Negative Ur THC Screen Negative 09/21/20 09/21/20 08:36 09:43 WBC 4.92 RBC 3.41 L Hgb 11.8 L Hct 34.5 L MCV 101.2 H MCH 34.6 H MCHC 34.2 RDW 12.9 Plt Count 144 MPV 10.2 Immature Gran % 0.4 Neutrophils % 69.9 Lymphocytes % 15.7 Monocytes % 11.6 Eosinophils % 2.2 Basophils % 0.2 Nucleated RBC % 0 Absolute Neutrophils 3.44 Absolute Lymphocytes 0.77 L Absolute Monocytes 0.57 Absolute Eosinophils 0.11 Absolute Basophils 0.01 Sodium Potassium Chloride Carbon Dioxide Anion Gap BUN Creatinine Estimated GFR/1.73 m2 Glucose Calcium Transferrin Ammonia < 10 L Urine Opiates Screen Urine Methadone Screen Ur Barbiturates Screen Ur Tricyclics Screen Ur Amphetamines Screen U Benzodiazepines Scrn Urine Cocaine Screen Ur THC Screen Laboratory Tests 09/18/20 09/18/20 09/19/20 08:20 10:00 06:27 WBC Hct Plt Count VBG Lactate 1.1 Sodium Creatinine Calcium Vitamin B12 140 L TSH 2.60 09/21/20 09/22/20 08:36 07:01 WBC 5.87 Hct 35.3 L Plt Count 157 VBG Lactate Sodium 137 Creatinine 0.92 Calcium 8.4 L Vitamin B12 TSH mRI EXAM: MR BRAIN WO CLINICAL HISTORY: ? CVA, UNRESPONSIVE EPISODE TECHNIQUE: Multiplanar multisequence MRI of the brain was performed. COMPARISON: No exams were available for comparison FINDINGS: Study is significantly degraded by motion artifact. CEREBRAL PARENCHYMA: No evidence of intracranial hemorrhage, mass effect nor shift of midline structure. No extraaxial fluid collections. Ventricles are not enlarged nor shifted. There is no significant focal signal abnormality in the cerebellar hemispheres nor within the julia, and midbrain. There is a cyst lacunar infarct in the right thalamus, nonhemorrhagic and probably not acute. Tiny focus of increased signal evident in the right frontal lobe seen on diffusion imaging, difficult to determine tiny infarct from artifact. There is no abnormal signal abnormality in the periventricular white matter. PITUITARY GLAND: Not able to be assessed on this study FLOW VOIDS: Difficult to assess accurately on this study due to advanced motion artifact. PARANASAL SINUSES: The visualized paranasal sinuses appear unremarkable. ORBITS: No obvious abnormal findings. IMPRESSION: 1. Poor quality study due to abundant motion artifact. 2. There is periventricular signal abnormality consistent with chronic small ve ssel disease. There is also a 4 millimeter lacunar infarct in the pulvinar of the right thalamus, nonhemorrhagic and probably not acute. 3. Recommend follow-up CT scan which would have significant benefit to ensure that there is no obvious hemorrhage. CT scan would take only a few seconds for image acquisition and therefore motion would possibly be less of a problem. Echo EXAM: Comprehensive 2D, Doppler, and color-flow Echocardiogram Patient Location: In-Patient Room/Bed: [facility] [employer] Inspector: Adela Queen RDCS (AE) Indications: R/O CHF, Syncope, HTN Other Information Study Quality: Fair. Technically limited study due to inability to position patient, uncooperative patient. Conclusion Left Ventricle : The left ventricle is normal size. Left ventricular systolic function is borderline. There is normal left ventricular wall thickness. There is normal LV segmental wall motion. LVEF is 50%. Diastolic function is indeterminate. Right Ventricle : Right ventricle is not well visualized. Right ventricular systolic function could not be assessed. Atria : The left atrium size is normal. The right atrium size is normal. Aortic Valve : The Aortic valve is sclerotic. Aortic valve is probably trileaflet. There is no aortic valvular stenosis. Mild aortic regurgitation. Mitral Valve : Mild mitral annular calcification. Mild mitral regurgitation. No evidence of mitral valve stenosis. Great Vessels : The aortic root is normal in size. Ascending aorta is not well visualized. The IVC collapses <50% with normal respiration. Please see remainder of study for further details. CT IMPRESSION: 1. There is some infiltrate in the right lung base and there is a small right pleural effusion noted. This appears unchanged in for size from yesterday's chest CT scan. 2. The urinary bladder is distended. No obvious bladder mass. 3. Minimally dilated bilateral urinary tract collecting systems, symmetrical in appearance and possibly related to bladder outlet obstruction, despite prostate not being grossly enlarged. There is no obvious mass in the urinary bladder. PRESSION: Intradural left vertebral artery is diminutive and could be hypoplastic , however severe stenosis could not be excluded. Remaining arteries of the head demonstrates no high-grade stenosis, although evaluation is mildly limited due to decreased bolus contrast and motion degradation.
--- NOTE | 2020-09-21 14:10 | W.PM.PROGNOT ---
Date of Service Date of service: 09/21/20 Time of Service: 14:10 Assessment and Plan Assessment and plan (1) Transient neurologic deficit: Start date: 09/21/20 Start time: 14:38 Status: Acute Assessment and plan: In setting of unresponsive episode . Neuro consult for today, MRI for is currently down. Telemetry in place CTA revealing IMPRESSION: Intradural left vertebral artery is diminutive and could be hypoplastic , however severe stenosis could not be excluded. Remaining arteries of the head demonstrates no high-grade stenosis, although evaluation is mildly limited due to decreased bolus contrast and motion degradation. IMPRESSION: 1. No hemodynamically significant stenosis in the bilateral internal carotid arteries or vertebral arteries, although the evaluation is mildly limited due to motion degradation. 2. No acute intracranial abnormality. 3. Moderate white matter hypodensity which might reflect chronic microvascular ischemic disease. There is chronic lacunar infarction in the right thalamus. Slightly hypertensive Echo: Conclusion Left Ventricle : The left ventricle is normal size. Left ventricular systolic function is borderline. There is normal left ventricular wall thickness. There is normal LV segmental wall motion. LVEF is 50%. Diastolic function is indeterminate. Right Ventricle : Right ventricle is not well visualized. Right ventricular systolic function could not be assessed. Atria : The left atrium size is normal. The right atrium size is normal. Aortic Valve : The Aortic valve is sclerotic. Aortic valve is probably trileaflet. There is no aortic valvular stenosis. Mild aortic regurgitation. Mitral Valve : Mild mitral annular calcification. Mild mitral regurgitation. No evidence of mitral valve stenosis. Great Vessels : The aortic root is normal in size. Ascending aorta is not well visualized. The IVC collapses <50% with normal respiration. Please see remainder of study for further details. Teley with SR and PVC (2) Anorexia: Start date: 09/21/20 Start time: 14:49 Status: Acute Assessment and plan: Poor po intake cachectic, he states he has had had a poor appetite for the last year with wt loss and continues to state he is going to . Surgery was consulted and agrees patient needs both lower and upper GI scope. He is going to be scoped on 09/23, on clear 09/22 with miralax all day NPO after MN on 09/22. (3) Weakness: Start date: 09/21/20 Start time: 14:41 Status: Acute Assessment and plan: Continue PT/OT (4) CAP (community acquired pneumonia): Start date: 09/21/20 Start time: 14:42 Status: Acute Assessment and plan: Day 3 of Doxy and day 2 of ceftriaxone, continue for 5 days with repeat CXR in 3 days Speech to eval for swallowing issues. 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 Qualifiers: Urinary tract infection type: site unspecified Hematuria presence: without hematuria Qualified Code(s): N39.0 - Urinary tract infection, site not specified (6) Anxiety: Start date: 09/21/20 Start time: 14:45 Status: Chronic Assessment and plan: Severely anxious. Required a dose ativan last night which sedated patient. he did better on valium will leave larger PRN IV dose for severe agitation started on remeron will continue to monitor (7) Memory deficit: Start date: 09/21/20 Start time: 14:46 Status: Acute Assessment and plan: question of mild to moderate dementia however states that patient wakes up confused but improves through out the day, however he does take melatonin at night and does take resolve over the counter pills for anxiety in which she states he takes like candy (8) Hypertension: Start date: 09/21/20 Start time: 14:46 Status: Chronic Assessment and plan: Not requiring anything at this time as he has been normotensive for the most part he has had episodes of hypertension but not consistently and likely when he was agitated. Qualifiers: Hypertension type: essential hypertension Qualified Code(s): I10 - Essential (primary) hypertension (9) Hyperlipidemia: Start date: 09/21/20 Start time: 14:48 Status: Acute Assessment and plan: Per history HLD, but not currently on anything will check lipid panel in am Qualifiers: Hyperlipidemia type: unspecified Qualified Code(s): E78.5 - Hyperlipidemia, unspecified (10) Discharge planning issues: Start date: 09/21/20 Start time: 14:49 Status: Acute Assessment and plan: Would like to return home when medically ready however, would benefit from SNIF above case discussed with Dr. More, Subjective Subjective Patient reports: other Interval history since last seen: Patient did have episode overnight requiring ativan, he has been sedated since but arousable. No complaints at this time MRI is down, will wait MRI, 1:1 observer. Surgery consulted will scope patient on 09/23 both upper and lower. NPO MN of 09/22 clears on 09/22 with miralax. Neuro consult in place. Exam Const General: cooperative, frail appearing and ill appearing chronically Nutritional Appearance: underweight Orientation: alert, oriented to person and confused HENMT Head: normal to inspection, normocephalic and atraumatic Ears: hearing grossly normal bilaterally Face and sinus: normal facial exam and face symmetric Mouth: moist mucous membranes Eyes Visual Colin: visual colin abnormal by confrontation and abnormal by confrontation Eyelids: eyelids normal Conjunctivae: conjunctivae normal Sclera: sclerae normal Pupils: PERRL EOM: EOM intact bilaterally Neck Neck: normal visual inspection and no JVD Thyroid: abnormal thyroid and other (palpable) Lymphatic: no lymphadenopathy noted Resp Effort & Inspection: normal respiratory effort Auscultation: clear to auscultation bilaterally Cardio Jugular venous pressure: no JVD Rate: regular rate Rhythm: regular rhythm Heart Sounds: S1 normal and S2 normal Other: ectopic beats GI Inspection: scaphoid Palpation: soft and no hepatosplenomegaly Auscultation: normal bowel sounds Back/Spine/Pelvis Back: no CVA tenderness Thoracic/Lumbar Spine: thoracic and lumbar spine normal to inspection Skin General skin exam: no rashes or lesions noted Neuro General: patient alert, not oriented x3 and patient confused Cognition: abnormal cognition Speech: speech normal Extrem General: normal to inspection, full ROM and no clubbing, cyanosis or edema Psych Appearance: well kempt Mental Status: other (highly anxious) Speech and Movement: speech and movement normal Mood: other (highly anxious) Objective Last Vital Signs Temp 36.5 C 09/21/20 09:00 Pulse 80 09/21/20 09:00 Resp 20 09/21/20 09:00 BP 168/88 H 09/21/20 09:00 Pulse Ox 97 09/21/20 09:00 Laboratory Results - last 24 hr 09/19/20 09/20/20 09/21/20 06:27 15:58 08:36 WBC RBC Hgb Hct MCV MCH MCHC RDW Plt Count MPV Immature Gran % Neutrophils % Lymphocytes % Monocytes % Eosinophils % Basophils % Nucleated RBC % Absolute Neutrophils Absolute Lymphocytes Absolute Monocytes Absolute Eosinophils Absolute Basophils Sodium 137 Potassium 3.5 Chloride 104 Carbon Dioxide 25.1 Anion Gap 7.9 BUN 8 Creatinine 0.92 Estimated GFR/1.73 m2 >= 60.00 Glucose 130 H Calcium 8.4 L Transferrin 106 L Ammonia Urine Opiates Screen Negative Urine Methadone Screen Negative Ur Barbiturates Screen Negative Ur Tricyclics Screen Negative Ur Amphetamines Screen Negative U Benzodiazepines Scrn Positive A Urine Cocaine Screen Negative Ur THC Screen Negative 09/21/20 09/21/20 08:36 09:43 WBC 4.92 RBC 3.41 L Hgb 11.8 L Hct 34.5 L MCV 101.2 H MCH 34.6 H MCHC 34.2 RDW 12.9 Plt Count 144 MPV 10.2 Immature Gran % 0.4 Neutrophils % 69.9 Lymphocytes % 15.7 Monocytes % 11.6 Eosinophils % 2.2 Basophils % 0.2 Nucleated RBC % 0 Absolute Neutrophils 3.44 Absolute Lymphocytes 0.77 L Absolute Monocytes 0.57 Absolute Eosinophils 0.11 Absolute Basophils 0.01 Sodium Potassium Chloride Carbon Dioxide Anion Gap BUN Creatinine Estimated GFR/1.73 m2 Glucose Calcium Transferrin Ammonia < 10 L Urine Opiates Screen Urine Methadone Screen Ur Barbiturates Screen Ur Tricyclics Screen Ur Amphetamines Screen U Benzodiazepines Scrn Urine Cocaine Screen Ur THC Screen
--- NOTE | 2020-09-21 14:28 | W.NUTRFU ---
Date of service: 09/21/20 Time of Service: 14:29 Nutritional Follow up NOTE: Met with Raul today, he was very tired and confused, unable to answer questions. Nursing reports he did not eat breakfast as was sleeping. To have upper endoscopy tomorrow to r/o malignancy. At high nutritional risk. Will continue to follow. Time Spent in Nutritional Counseling and Treatment: 5
--- NOTE | 2020-09-21 14:58 | PHA.REVIEW ---
Pharmacy Admission Review - Admission Clinical Review (Last Updated 09/18/20 @ 14:38 by Promise Simeon NP) CAP (community acquired pneumonia) (Acute) Discharge planning issues (Acute) Transient neurologic deficit (Acute) Memory deficit (Acute) UTI (urinary tract infection) (Acute) Weakness (Acute) Anorexia (Acute) Hyperlipidemia (Acute) indomethacin Allergy (Severe, Verified 09/18/20 08:03) MOUTH SWELLED Height 5 ft 7 in Weight 62.596 kg - Renal Dosing Renal Dosing: BUN 8 mg/dL (7-18) 09/21/20 08:36 Creatinine 0.92 mg/dL (0.70-1.30) 09/21/20 08:36 Medications needing adjustments: Reviewed (Crcl ~53.86 mL/min current meds okay) - Anticoagulation Anticoagulation: Hgb 11.8 g/dL (13.5-17.5) L 09/21/20 08:36 Hct 34.5 % (40.0-50.0) L 09/21/20 08:36 Plt Count 144 10^3/uL (130-400) 09/21/20 08:36 Creatinine 0.92 mg/dL (0.70-1.30) 09/21/20 08:36 DVT Prohphylaxis: Reviewed Medications: Heparin Therapeutic Anticoagulation: N/A - Opiate Usage Evaluate Pain Scale/Pains Meds: N/A - Relevant Labs Sodium 137 mmol/L (136-145) 09/21/20 08:36 Potassium 3.5 mmol/L (3.5-5.1) 09/21/20 08:36 Chloride 104 mmol/L (98-107) 09/21/20 08:36 Magnesium 1.8 mg/dL (1.8-2.4) 09/20/20 09:20 Electrolytes, C-Reactive P, ESR: Reviewed - DM Control DM Control: Glucose 130 mg/dL (74-106) H 09/21/20 08:36 Insulin Dosing: Reviewed (Bg mildly elevated) - Heart Failure/ND Heart Failure/ND: Troponin I < 0.05 ng/mL (<0.06) 09/19/20 12:29 NT-Pro-B Natriuret Pep 2343 pg/mL (<300) H 09/18/20 08:20 EF%, OLIVERIO's, B-Blockers, Diuretics: Reviewed - BP Control BP Control: Blood Pressure 168/88 If elevated: Reviewed (elevated this morning, was within normal limits yesterday) - Qtc Review If Elevated: N/A (QTc 444 on September 19) - IV to PO Switch IV Medications: Reviewed - Home Meds Home Med List reviewed: Reviewed Relevent Home Meds Not ordered & why?: multivitamin - Current meds Current Medication Order Review: Reviewed - Comments Comments/Follow Ups: Watch BP, plt, SCr, and for med changes Antibiotic Activity - Pharmacy Antibiotic Review Pharmacy Antibiotic Activity: Reviewed, no change (ceftriaxone (day 2) and doxy (day 3) continue for CAP. Blood cultures no growth @72 hours, urine culture grew graham sensitive E.coli.)
[2020-09-21] MEDS: diazePAM 10 MG/2 ML SYR 5 MG IVP ×2 (14:59→22:25)
[2020-09-21] MEDS: Normal Saline Flush 10 ML SYR IVP ×2 (15:00→15:58)
--- NOTE | 2020-09-21 15:41 | NCONE_ITS ---
Date of service: 09/21/20 Time of Service: 15:41 Assessment and Plan Assessment and plan (1) Unresponsive episode: Status: Acute (2) Memory deficit: Status: Acute (3) Anxiety: Status: Chronic Assessment and plan: Mr. Merchant is an 84 year-old, right-handed man with: #1. Unresponsive episode. Rather long for a syncopal episode. Suspect generalized hypoperfusion from relative hypotension (he is usually >140s), tri ggered by ?Flomax. The transient facial droop likely represented recrudesnce from known old right thalamic infarct. Thus, I do not think his symptoms represent TIA/stroke. Cleared for procedures from neurological stand point. Given old infarct finding, can consider the addition of Plavix 75mg for cardiovascular health. #2. Memory loss. Unable to perform accurate memory testing today. Will have him schedule outpatient evaluation as further work-up. #3. Anxiety. May be secondary to vs contributing to #2 above. Treatment as per primary team. He should f/up in neurology clinic in 4-6 weeks. Please call with any further questions or concerns. History of Present Illness History of Present Illness Chief Complaint: Spell of AMS, ?TIA Narrative: Handedness: right. HPI: Mr. Merchant is an 84 year-old man with HTN, HLD, anxiety, gout, OA, and hearing loss. He was admitted on 09/18/20 after he called EMS for dyspnea, anxoexia, and tremors. He has a 1 year history of progressive generalized weakness and weight loss, complicated by dysphagia. In the ER, he was found to have a UTI. Hgb 11.4, Na 131. He has been extremely anxious. There is concern for an underlying dementia, however, does not note any cognitive concerns. He had not had any medical care in ~3 years. On 09/19/20 at noon, patient was found unresponsive his his chair by nursing. He would not arouse to sternal rub x ~20min. He appeared to have a left facial droop. He was noted to have systolic BP in the 80s (BP had been as high as 190 systolic the day prior). EKG SR. He was given IVF bolus and laid supine. With these measures, he returned to baseline and facial droop resolved. Of interest, that am, he was given first dose of Flomax for noted urinary retention. The night prior he had been treated with Seroquel and benzos for anxiety/agitation. Work-up: -CTH: no acute findings. moderate cerebral atrophy and chronic vascular changes. Old right thalamic lacune. I reviewed these images personally and this is my personal interpretation. -CTA head/neck: complicated by motion artifact. ? Distal L vert narrowing vs artifact vs congenital. I reviewed these images personally and this is my personal interpretation. -MRI brain: also complicated by motion artifact. DWI with no acute findings and thus rules out aucte infarct. Other images not readable in my opinion. I reviewed these images personally and this is my personal interpretation. -TTE: EF 50%, no wall motion abnormalities. LA normal. -LDL 72 He is not able to take aspirin due to an indomethacin ADR. He was slightly sedated for my visit with him today as he had just returned from MRI. He was not anxious. He has been to his current since age 26. 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 He and his moved back to [facility] to live with and care for his MIL. He and his had a single child that at age 3 days. No other children. He quit school after 8thd grade because he didn't like it. Consults Requesting physician: Promise Simeon Review of Systems All systems reviewed & are unremarkable except as noted in HPI and below [facility] Medical History (Updated 09/21/20 @ 17:13 by Nahomy Watters MD) Anorexia Eye degeneration Gout We will check a uric acid along with a CBC and CMP. Hearing loss Does not have a hearing aid but seems to function okay. 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 He does not want any treatment for this at present. He does not want any further x-rays. Family History (Updated 08/08/18 @ 13:48 by Fatimah Kurtz) Mother Heart disease Father , AGE 83 No problems noted. Social History (Updated 08/08/18 @ 13:47 by Fatimah Kurtz) Smoking/Tobacco Use Status: Former Tobacco Use Quit Date: 08/28/87 Smoking risk assessment performed?: Yes Alcohol Intake: former Substance use type: does not use Frequency: does not exercise Rohini/Methodist: No preference Special rohini needs: No Do you feel safe at home: Yes Do you feel safe in your relationship?: Yes Visit Medication and Allergies Active Medications Generic Name Dose Route Start Last Admin Trade Name Freq PRN Reason Stop Dose Admin Acetaminophen 650 mg 09/18/20 10:46 09/21/20 04:38 Acetaminophen 325 Mg Tab PO 650 mg Q4H PRN PRN Administration Diazepam 2 mg 09/18/20 14:12 09/21/20 14:22 Diazepam 2 Mg Tab PO 2 mg TID PRN PRN Administration Agitation Diazepam 5 mg 09/21/20 08:00 09/21/20 14:59 Diazepam 10 Mg/2 Ml Syr IVP 09/21/20 16:00 5 mg TODAY@0800 KWESI Administration Diazepam 5 mg 09/21/20 23:00 Diazepam 10 Mg/2 Ml Syr IVP 09/21/20 23:01 ONCE ONE Dimethicone/Zinc Oxide 0 gm 09/18/20 10:46 Crescencio Protect Cream 142 Gm Tube TP PRN PRN Docusate Sodium 100 mg 09/18/20 10:46 Docusate Sodium 100 Mg Cap PO TID PRN PRN Gabapentin 100 mg 09/20/20 14:00 09/20/20 15:49 Gabapentin 100 Mg Cap PO 100 mg TID KWESI Administration Heparin Sodium (Porcine) 5,000 units 09/18/20 12:00 09/21/20 13:03 Heparin 5,000 Units/Ml Vial SC 5,000 units Q8H KWESI Administration Hydroxyzine HCl 25 mg 09/18/20 12:26 09/21/20 04:38 Hydroxyzine Hcl 25 Mg Tab PO 25 mg QID PRN PRN Administration Doxycycline Hyclate 100 mg/ 100 mls @ 100 mls/hr 09/19/20 10:00 09/21/20 10:14 Sodium Chloride IVPB 100 mls/hr Q12H KWESI Administration Sodium Chloride 1,000 mls @ 50 mls/hr 09/19/20 09:45 09/21/20 11:30 Saline 1000ml Bag IV 50 mls/hr INFUSION KWESI Infusion Sodium Chloride 500 mls @ 0 mls/hr 09/19/20 09:46 09/19/20 10:26 Saline 500ml Bag IV Infused PRN PRN Infusion As Directed Ceftriaxone Sodium/Dextrose 1 gm in 50 mls @ 100 mls/hr 09/20/20 16:00 09/20/20 19:22 Rocephin IVPB Infused Q24H KWESI Infusion Magnesium Hydroxide 30 ml 09/18/20 10:46 Milk Of Magnesia 30 Ml Cup PO DAILY PRN PRN Mirtazapine 15 mg 09/20/20 22:00 09/20/20 22:27 Mirtazapine 15 Mg Tab PO 15 mg HS KWESI Administration Ondansetron HCl 4 mg 09/20/20 10:20 09/20/20 11:11 Ondansetron 4 Mg/2 Ml Vial IVP 4 mg Q4H PRN PRN Administration Polyethylene Glycol 17 gm 09/18/20 10:46 Polyethylene Glycol 3350 17 Gm Packet PO DAILY PRN PRN Constipation Polyethylene Glycol 238 gm 09/22/20 14:00 Polyethylene Glycol 3350 238 Gm Btl PO DIRECTED KWESI Sodium Chloride 10 ml 09/18/20 09:30 09/21/20 15:00 Normal Saline Flush 10 Ml Syr IVP 10 ml PRN PRN Administration Tamsulosin HCl 0.4 mg 09/19/20 08:30 09/19/20 08:50 Tamsulosin 0.4 Mg Capcr PO 0.4 mg DAILY KWESI Administration Allergies indomethacin Allergy (Severe, Verified 09/18/20 08:03) MOUTH SWELLED Exam Narrative Exam Narrative: Physical Exam: Gen: Patient of apparent stated age, NAD Head and face: no facial or cranial abnormalities Neck: Supple, no meningismus, no occipital tenderness CV: + S1, S2, RRR, no murmur Resp: CTA B/L Abd: soft, nontender, nondistended, +BS Ext: No edema. No clubbing or cyanosis. No bony deformity. Neuro Exam: Language: fluency, naming, repetition, and comprehension generally intact; no aphasia Mental Status: AAOxself and place, current events not intact; fund of knowledge intact; Speech: no dysarthria Cranial nerves: Funduscopy: not performed CN II: visual colin appear intact (used $ bill as he was unable to finger count) CN III, IV, : extraocular movements intact, no nystagmus, pupils symmetric and reactive to light CN V: face sensation intact to PP CN VII: no facial asymmetry noted CN VIII: hearing intact bilaterally CN IX, X: palate rises symmetrically CN XI: trapezius/SCM 5/5 bilaterally CN XII: protrudes tongue symmetrically Sensory: intact to PP throughout; other modalities could not be reliably tested Motor: bulk and tone intact. Fine motor movements reduced bilaterally. No pronator drift. Strength 5/5 throughout the UE and distal LE. Hip flexors 4/5 bilaterally. Reflexes: hyporeflexic throughout; toes down going bilaterally; Coordination: no ataxia Gait: not safe to ambulate currently due to sedating medications Results Last Vital Signs Temp 36.5 C 09/21/20 09:00 Pulse 80 09/21/20 09:00 Resp 20 09/21/20 09:00 BP 168/88 H 09/21/20 09:00 Pulse Ox 97 09/21/20 09:00 Labs Result diagrams: 09/21/20 08:36 09/21/20 08:36 Labs: Laboratory Results - last 24 hr 09/19/20 09/20/20 09/21/20 06:27 15:58 08:36 WBC RBC Hgb Hct MCV MCH MCHC RDW Plt Count MPV Immature Gran % Neutrophils % Lymphocytes % Monocytes % Eosinophils % Basophils % Nucleated RBC % Absolute Neutrophils Absolute Lymphocytes Absolute Monocytes Absolute Eosinophils Absolute Basophils Sodium 137 Potassium 3.5 Chloride 104 Carbon Dioxide 25.1 Anion Gap 7.9 BUN 8 Creatinine 0.92 Estimated GFR/1.73 m2 >= 60.00 Glucose 130 H Calcium 8.4 L Transferrin 106 L Ammonia Urine Opiates Screen Negative Urine Methadone Screen Negative Ur Barbiturates Screen Negative Ur Tricyclics Screen Negative Ur Amphetamines Screen Negative U Benzodiazepines Scrn Positive A Urine Cocaine Screen Negative Ur THC Screen Negative 09/21/20 09/21/20 08:36 09:43 WBC 4.92 RBC 3.41 L Hgb 11.8 L Hct 34.5 L MCV 101.2 H MCH 34.6 H MCHC 34.2 RDW 12.9 Plt Count 144 MPV 10.2 Immature Gran % 0.4 Neutrophils % 69.9 Lymphocytes % 15.7 Monocytes % 11.6 Eosinophils % 2.2 Basophils % 0.2 Nucleated RBC % 0 Absolute Neutrophils 3.44 Absolute Lymphocytes 0.77 L Absolute Monocytes 0.57 Absolute Eosinophils 0.11 Absolute Basophils 0.01 Sodium Potassium Chloride Carbon Dioxide Anion Gap BUN Creatinine Estimated GFR/1.73 m2 Glucose Calcium Transferrin Ammonia < 10 L Urine Opiates Screen Urine Methadone Screen Ur Barbiturates Screen Ur Tricyclics Screen Ur Amphetamines Screen U Benzodiazepines Scrn Urine Cocaine Screen Ur THC Screen
--- NOTE | 2020-09-21 15:45 | DI.MRI_ITS ---
EXAM: MR BRAIN WO CLINICAL HISTORY: ? CVA, UNRESPONSIVE EPISODE TECHNIQUE: Multiplanar multisequence MRI of the brain was performed. COMPARISON: No exams were available for comparison FINDINGS: Study is significantly degraded by motion artifact. CEREBRAL PARENCHYMA: No evidence of intracranial hemorrhage, mass effect nor shift of midline structu re. No extraaxial fluid collections. Ventricles are not enlarged nor shifted. There is no significant focal signal abnormality in the cerebellar hemispheres nor within the julia, a nd midbrain. There is a cyst lacunar infarct in the right thalamus, nonhemorrhagic and probably not acute. Tiny focus of increased signal evident in the right frontal lobe seen on diffusion imaging, d ifficult to determine tiny infarct from artifact. There is no abnormal signal abnormality in the periventricular white matter. PITUITARY GLAND: Not able to be assessed on this study FLOW VOIDS: Difficult to assess accurately on this study due to advanced motion artifact. PARANASAL SINUSES: The visualized paranasal sinuses appear unremarkable. ORBITS: No obvious abnormal findings. IMPRESSION: 1. Poor quality study due to abundant motion artifact. 2. There is periventricular signal abnormality consistent with chronic small vessel disease. There is also a 4 millimeter lacunar infarct in the pulvinar of the right thalamus, nonhemorrhagic and prob ably not acute. 3. Recommend follow-up CT scan which would have significant benefit to ensure that there is no obvio us hemorrhage. CT scan would take only a few seconds for image acquisition and therefore motion woul d possibly be less of a problem. DATA REPOSITORY:
[2020-09-21] MEDS: cefTRIAXone 1 GM/50 ML BAG IVPB (15:57)
--- NOTE | 2020-09-21 16:00 | PDOC.CMPRO ---
- If Service Date Differs Date of service: 09/21/20 Time of Service: 16:00 Care Management Progress Note S/O: Raul was sleeping when CM attempted to visit with him x2. His RN was in the room one of the attempts, and stated that he was given medication for his anxiety, and he was about to be taken down to MRI. He has had a Surgical consult, an Echo, and a Neurology Consult today. Palliative will visit with him later this afternoon. Per report, he has been very anxious during this admission, and has required a sitter to attend to him in the room. CM will continue to follow. A: Rhys is an 84 year old man admitted on 09/18/20 with weakness and a UTI P: Rhys will most likely return home with new home health services, although he may need placement for a time if symptoms do not resolve. He will follow up with his PCP and plan of care and transport with family. CM will continue to support Rhys and his Veena and assess for discharge planning needs and concerns.
[2020-09-21 16:13] VITALS: BP 153/95; PULSE 75; RESP 17; TEMP 36.3; O2SAT 98
[2020-09-21] MEDS: Mirtazapine 15 MG TAB PO (22:26)
[2020-09-21 22:59] VITALS: BP 154/75; PULSE 72; RESP 16; TEMP 36.9; O2SAT 97
--- NOTE | 2020-09-22 | DI.RAD_ITS ---
EXAM: XR PORTABLE CHEST AP CLINICAL HISTORY: follow up aspiration pneumonia TECHNIQUE: 2D digital imaging was performed. COMPARISON: CR XR PORTABLE CHEST AP from 09/18/2020 CR XR PORTABLE CHEST AP from 09/18/[address] CHEST PE CTA from 09/18/2020 FINDINGS: Heart size is within normal limits for projection. There is bilateral upper lobe pleural thickening and scarring, unchanged. There is a small right pleural effusion mass slightly increased in size whe n compared with the previous exam. No left effusion is seen. There is mild right lower lobe atelect asis. Degenerative changes are seen in the spine and shoulders. IMPRESSION: Question of slight interval increase in size of right pleural effusion. DATA REPOSITORY: RADIATION DOSE DELIVERED:
[2020-09-22] MEDS: Normal Saline 1,000 ML 50 ML IV ×2 (00:16→20:42)
[2020-09-22] MEDS: diazePAM 2 MG TAB PO ×3 (01:47→15:33)
[2020-09-22] MEDS: hydrOXYzine HCL 25 MG TAB PO ×3 (01:48→15:34)
[2020-09-22 03:55] VITALS: BP 175/64; PULSE 80; RESP 17; TEMP 36.7; O2SAT 97
[2020-09-22 07:31] LABS: Abs Immature Grans 0.01 10^3/uL (0.0-0.06); Absolute Basophil Count 0.02 10^3/uL (0.0-0.2); Absolute Eosinophil Count 0.12 10^3/uL (0.0-0.7); Absolute Lymphocyte Count 0.77 10^3/uL (1.2-3.4); Absolute Monocyte Count 0.64 10^3/uL (0.1-0.8); Absolute Neutrophil Count 4.31 10^3/uL (1.2-6.7); Basophils % 0.3; HCT 35.3 % (40.0-50.0); Immature Grans % 0.2; Lymphocytes % 13.1; MCH 33.7 pg (27.0-33.0); MCV 99.2 fL (80-95); MPV 10.2 fL (8.0-11.0); Monocytes % 10.9; Neutrophils % 73.5; Nucleated RBC 0 %; Platelet Count 157 10^3/uL (130-400); RBC 3.56 10^6/uL (4.36-5.78); RDW 12.7 % (11.8-14.1); RDW-SD 46.5 fL; WBC 5.87 10^3/uL (4.4-10.8)
--- NOTE | 2020-09-22 07:52 | UCONE_ITS ---
Date of service: 09/22/20 Time of Service: 09:12 Assessment and Plan Assessment and plan (1) Urinary retention: Status: Acute Assessment and plan: He is unable to tolerate alpha blockers because of hypotension. He certainly is not a surgical candidate at this point. Our best option is probably to leave a Morel catheter for now and work on optimizing his functional status. This would include ensuring that his bowels are functioning well and that his mobility is optimized. We can then give a voiding trial. If he fails that voiding trial, we would need to consider more permanent catheterization options. Our preference would be intermittent catheterization, but this approach can be difficult for patients with mental status changes. Indwelling catheters have a much higher risk of infection and urosepsis, but at times are the only practical solution. History of Present Illness History of Present Illness Chief Complaint: Urinary retention Narrative: This is an 84-year-old gentleman who was admitted with weakness and weight loss. He was identified as having a urinary tract infection and is currently on sensitivity specific antibiotics. As part of his evaluation, he had a CT of the abdomen and pelvis. His bladder was distended and there was some fullness to both of his collecting systems. A Morel catheter was placed. He was started on an alpha-genny, which had to be discontinued when he became hypotensive. I have been asked to see him for his issues with retention. The patient is quite sleepy but does answer questions when I ask. He denies any specific bowel or bladder issues. He does not recall having had a previous catheter or previous urinary tract infections. His old records are not overly helpful and that his last office visit was in 2018 and he is described as doing quite well at that time. Review of Systems Narrative: Unable to obtain-patient quite sedated [facility] Medical History (Updated 09/22/20 @ 08:08 by Ritchie Gabriel MD) Anorexia Eye degeneration Gout We will check a uric acid along with a CBC and CMP. Hearing loss Does not have a hearing aid but seems to function okay. 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 He does not want any treatment for this at present. He does not want any further x-rays. Urinary retention Family History (Updated 08/08/18 @ 13:48 by Fatimah Kurtz) Mother Heart disease Father , AGE 83 No problems noted. Social History (Updated 08/08/18 @ 13:47 by Fatimah Rudolph Smoking/Tobacco Use Status: Former Tobacco Use Quit Date: 08/28/87 Smoking risk assessment performed?: Yes Alcohol Intake: former Substance use type: does not use Frequency: does not exercise Rohini/Sabianism: No preference Special rohini needs: No Do you feel safe at home: Yes Do you feel safe in your relationship?: Yes Exam Narrative Exam Narrative: He is sedated but arousable His vital signs are documented elsewhere His abdomen is soft with no mass. There is no tenderness on palpation of the abdomen. His bladder is not distended. Morel catheter is draining clear urine Results Last Vital Signs Temp 36.7 C 09/22/20 03:55 Pulse 80 09/22/20 03:55 Resp 17 09/22/20 03:55 BP 175/64 H 09/22/20 03:55 Pulse Ox 97 09/22/20 03:55 Labs Result diagrams: 09/22/20 07:01 09/21/20 08:36 Labs: Laboratory Results - last 24 hr 09/19/20 09/21/20 09/21/20 06:27 08:36 08:36 WBC 4.92 RBC 3.41 L Hgb 11.8 L Hct 34.5 L MCV 101.2 H MCH 34.6 H MCHC 34.2 RDW 12.9 Plt Count 144 MPV 10.2 Immature Gran % 0.4 Neutrophils % 69.9 Lymphocytes % 15.7 Monocytes % 11.6 Eosinophils % 2.2 Basophils % 0.2 Nucleated RBC % 0 Absolute Neutrophils 3.44 Absolute Lymphocytes 0.77 L Absolute Monocytes 0.57 Absolute Eosinophils 0.11 Absolute Basophils 0.01 Sodium 137 Potassium 3.5 Chloride 104 Carbon Dioxide 25.1 Anion Gap 7.9 BUN 8 Creatinine 0.92 Estimated GFR/1.73 m2 >= 60.00 Glucose 130 H Calcium 8.4 L Transferrin 106 L Ammonia 09/21/20 09/22/20 09:43 07:01 WBC 5.87 RBC 3.56 L Hgb 12.0 L Hct 35.3 L MCV 99.2 H MCH 33.7 H MCHC 34.0 RDW 12.7 Plt Count 157 MPV 10.2 Immature Gran % 0.2 Neutrophils % 73.5 Lymphocytes % 13.1 Monocytes % 10.9 Eosinophils % 2.0 Basophils % 0.3 Nucleated RBC % 0 Absolute Neutrophils 4.31 Absolute Lymphocytes 0.77 L Absolute Monocytes 0.64 Absolute Eosinophils 0.12 Absolute Basophils 0.02 Sodium Potassium Chloride Carbon Dioxide Anion Gap BUN Creatinine Estimated GFR/1.73 m2 Glucose Calcium Transferrin Ammonia < 10 L
[2020-09-22 08:13] VITALS: BP 171/77; PULSE 67; RESP 19; TEMP 36.6; O2SAT 97
--- NOTE | 2020-09-22 08:15 | NT_ITS ---
Date of service: 09/22/20 Time of Service: 08:15 Occupational Therapy Notes 09/22/20 OT consult received and pts chart was reviewed. OT attempted to consult with pt 2x this morning, both times pt was sleeping. After discussion with nursing staff it was determined to hold on consult for today and attempt to assess pt tomorrow. Pt was up until 6am this morning and just recently went to sleep. Based on this OT will attempt to consult with pt tomorrow. [facility]
[2020-09-22] MEDS: Ondansetron 4 MG/2 ML VIAL IVP (09:53)
--- NOTE | 2020-09-22 11:14 | W.PM.PROGNOT ---
Date of Service Date of service: 09/22/20 Time of Service: 11:14 Assessment and Plan Assessment and plan (1) CAP (community acquired pneumonia): Status: Acute Assessment and plan: Vs aspiration pneumonia, present on admission. Repeat CXR today. 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 Discussed with neurology: will not start asa due to allergy to NSAIDS. Will not start plavix due to pending GI workup. (3) UTI (urinary tract infection): Status: Acute Assessment and plan: Present on admission, Due to pansensitive E. Coli. On ceftriaxone. Evaluated by urology for urinary retention with recommendations to keep the alvarado catheter in place. intolerant to flomax (hypotension). Started on finasteride. Qualifiers: Urinary tract infection type: site unspecified Hematuria presence: without hematuria Qualified Code(s): N39.0 - Urinary tract infection, site not specified (4) Anxiety: Status: Chronic Assessment and plan: Severe, on the background of likely dementia. Started on mirtazapine and gabapentin. Titrate gabapentin up. Will discuss with palliative care. Continue prn diazepam. Consider longer-acting benzodiazepine. (5) B12 deficiency: Status: Acute Assessment and plan: Replete. (6) Dysphagia: Status: Chronic Assessment and plan: Await speech therapy consult +/- EGD. (7) Urinary retention: Status: Acute Assessment and plan: Continue proscar, alvarado catheter. Appreciate urology recommendations. (8) Weight loss: Status: Chronic Assessment and plan: No evidence of malignancy on CT C/A/P; however, given Dysphagia symptoms, EGD is being considered, in addition to colonoscopy to r/o a GI malignancy we might not easily see on imaging. Palliative care as well as general surgery are attempting to contact to clarify goals of care and whether EGD/Colonoscopy should be pursued. Await speech therapy consult. (9) Hypertension: Status: Chronic Assessment and plan: Trial norvasc 2.5 mg PO daily. Qualifiers: Hypertension type: essential hypertension Qualified Code(s): I10 - Essential (primary) hypertension (10) DVT prophylaxis: Status: Acute Assessment and plan: SC Heparin (11) Discharge planning issues: Status: Acute Assessment and plan: Full code Palliative care consulted to clarify goals of care Subjective Subjective Interval history since last seen: Mr Merchant is currently asleep. He did not fall asleep until about 4 am, was very anxious. Nursing and myself feel it is best to let him rest rather than wake him up for an interview. Palliative care attempted to contact the patient's , but was not successful. They will attempt again today. Spoke with general surgery: they, too, will attempt to contact the patient's to clarify goals of care. Exam Narrative Exam Narrative: General: Elderly male, asleep in a chair, nonlabored breathing on room air HEENT: eyes closed, MMM Heart: not auscultated Lungs: not auscultated; nonlabored breathing Abdomen: covered with blankets Extremities: no upper extremity edema: BLEs covered with blankets Objective Last Vital Signs Temp 36.6 C 09/22/20 08:13 Pulse 67 09/22/20 08:13 Resp 19 09/22/20 08:13 BP 171/77 H 09/22/20 08:13 Pulse Ox 97 09/22/20 08:13 Laboratory Results - last 24 hr 09/19/20 09/22/20 06:27 07:01 WBC 5.87 RBC 3.56 L Hgb 12.0 L Hct 35.3 L MCV 99.2 H MCH 33.7 H MCHC 34.0 RDW 12.7 Plt Count 157 MPV 10.2 Immature Gran % 0.2 Neutrophils % 73.5 Lymphocytes % 13.1 Monocytes % 10.9 Eosinophils % 2.0 Basophils % 0.3 Nucleated RBC % 0 Absolute Neutrophils 4.31 Absolute Lymphocytes 0.77 L Absolute Monocytes 0.64 Absolute Eosinophils 0.12 Absolute Basophils 0.02 Transferrin 106 L Objective Narrative Objective Narrative: Repeat CXR pending
[2020-09-22] MEDS: DOXYCYCLINE 100 MG in Normal Saline 100 ML IVPB ×2 (11:25→21:32)
[2020-09-22] MEDS: amLODIPine 2.5 MG TAB PO (15:33)
[2020-09-22] MEDS: Acetaminophen 325 MG TAB 650 MG PO (15:33)
[2020-09-22] MEDS: Finasteride 5 MG TAB PO (15:34)
[2020-09-22] MEDS: Heparin 5,000 UNITS/ML VIAL 5000 UNITS SC ×2 (15:34→20:15)
[2020-09-22 15:51] VITALS: BP 145/75; PULSE 55; RESP 22; TEMP 36; O2SAT 98
--- NOTE | 2020-09-22 15:52 | PTTR_ITS ---
Date of service: 09/22/20 Time of Service: 09:45 PT Notes Visit Reasons: WEAKNESS, UTI Inpatient Physical Therapy Treatment Note [facility] Date: 09/22/2020 PRECAUTIONS: Fall SUBJECTIVE: Raul is agreeable to transferring to the recliner chair. He re peats multiple times throughout the session that he feels like he is going to be sick. OBJECTIVE: PAIN: No c/o pain BED MOBILITY/TRANSFERS Supine-sit: Mod A with HOB at 50 degrees Sit-supine: Max A x3 with HOB flat Sit-stand: Mod A in a.m.; Max A x3 in p.m. Stand-sit: CGA x2 in a.m.; Max A x3 in p.m. Bed-Chair: Min A Chair-bed: Max A x3 GAIT Assistive Device: FWW in a.m.; No AD in p.m. Weight bearing: Full Assist: Min A in a.m.; Max A x3 in p.m. Distance: 5' in a.m.; Stand-pivot transfer in p.m. ASSESSMENT: Patient tolerated session with c/o increased nausea with activity. In p.m., patient demonstrates significant fatigue, requiring Max A x3 for all transfers and bed mobility. He would benefit from continued global strengthening and gait training for improved activity tolerance and mobility, when able to participate. PLAN: Continue with gait training and global conditioning for improved activity tolerance and mobility. TREATMENT CODE/TIME: Session 1: 20 minutes; [id number] Session 2: 20 minutes; [id number] x2
--- NOTE | 2020-09-22 16:20 | STREC_ITS ---
Date of service: 09/22/20 Time of Service: 15:45 Speech Therapy Recommendations Report ST Recommendations: MANAGER REVIEW consult received and attempted this evening. Pt had just been transferred (3 person transfer) from his chair to the bed. He had been sitting in his chair all day. Pt unable to participate in PO trials with MANAGER REVIEW, experiencing increasing anxiety when attempting to be repositioned fully upright in his bed several times, repeatedly complaining of SOB. Nurse consulted at that time, who stated that vitals were normal. When conversing with the MANAGER REVIEW today, pt described frequent choking at home. He was able to state that he usually eats foods like cereal and fruits. Pt reporting long-term hx of swallowing difficulty described as globus sensation and choking to staff across this hospitalization. Today, pt able to point to the lower portion of the throat below thyroid eminence as location of globus sensation. He reports that he soaks his upper dentures at home, but does not perform oral care. He complained today of a bad taste in his mouth. MANAGER REVIEW offered to perform oral care via oral swabstick with mouthwash, however, pt unable to sit upright to safely perform. Pt also indicated that he felt sick and could not eat right now. When MANAGER REVIEW returned to h is room moments later after consulting with PT, he had fallen asleep and appeared comfortable. MANAGER REVIEW observed nursing administering medications in puree. Pt was slouching in his chair with his head tilted to the right and intermittently alert when given puree. Pt is at high risk of aspiration when in this very poor positioning, in addition to known weakness, including very weak cough seen today and intermittent alertness. If pt is to receive PO, he MUST be fully upright in 90 degree seated position with his head at midline and alert. Pt must be supervised for ALL PO intake. MANAGER REVIEW reviewed these recommendations with nursing. Nursing reports that pt is taking sips of liquids and puree solids at this time. She states that he has not been noted to immediately cough post swallow, but is afraid of choking and reports globus sensations. Pt is recommended for a Modified Barium Swallow (MBS) study to assess the structural and functional integrity of the swallow mechanism, particularly oral-pharyngeal skills. Difficult to determine if pt will be able to participate in this procedure adequately with his high anxiety and limited mobility. MANAGER REVIEW discussed plan with attending MD, who further intends to discuss options with his . She has not been able to be contacted today. Risks of aspiration with PO intake given deficits above should also be communicated to pt's when she can be contacte d. PT should be consulted regarding mobility requirements for MBS procedure.
--- NOTE | 2020-09-22 16:49 | SPP_ITS ---
Date of service: 09/22/20 Time of Service: 15:45 Subjective MEDIA/INSTRUCTIONAL DESIGNER consult received and attempted this evening. Pt had just been transferred (3 person transfer) from his chair to the bed. He had been sitting in his chair all day. Pt unable to participate in PO trials with MEDIA/INSTRUCTIONAL DESIGNER, experiencing increasing anxiety when attempting to be repositioned fully upright in his bed several times, repeatedly complaining of SOB. Nurse consulted at that time, who stated that vitals were normal. When conversing with the MEDIA/INSTRUCTIONAL DESIGNER today, pt described frequent choking at home. He was able to state that he usually eats foods like cereal and fruits. Pt reporting long-term hx of swallowing difficulty to staff across this hospitalization, described as globus sensation and choking. Today, pt able to point to the lower portion of the throat below thyroid eminence as location of globus sensation. He reports that he soaks his upper dentures at [facility], but does not perform oral care. He complained today of a bad taste in his mouth. MEDIA/INSTRUCTIONAL DESIGNER offered to perform oral care via oral swabstick with mouthwash. Pt responded that he will try anything, however, pt unable to sit upright to safely perform. Pt also indicated that he felt sick and could not eat right now. When MEDIA/INSTRUCTIONAL DESIGNER returned to his room moments later after consulting with PT, he had fallen asleep and appeared comfortable. MEDIA/INSTRUCTIONAL DESIGNER observed nursing administering medications in puree. Pt was slouching in his chair with his head tilted to the right and intermittently alert when given puree. Pt is at high risk of aspiration when in this very poor positioning, in addition to known weakness, including very weak cough seen today and intermittent alertness. If pt is to receive PO, he MUST be fully upright in 90 degree seated position with his head at midline and alert. Pt must be supervised for ALL PO intake. MEDIA/INSTRUCTIONAL DESIGNER reviewed these instructions with nursing. Nursing reports that pt is taking sips of liquids and puree solids at this time. She states that he has not been noted to immediately cough post swallow, but is afraid of choking and reports globus sensations. Pt is recommended for a Modified Barium Swallow (MBS) study to assess the structural and functional integrity of the swallow mechanism, particularly oral-pharyngeal skills. Difficult to determine if pt will be able to participate in this procedure adequately with his high anxiety and limited mobility. MEDIA/INSTRUCTIONAL DESIGNER discussed plan with attending MD, who further intends to discuss options with his . She has not been able to be contacted today. Risks of aspiration with PO intake given deficits above should also be communicated to pt's when she can be contacted. PT should be consulted regarding mobility requirements for MBS procedure.
--- NOTE | 2020-09-22 16:54 | DI.VRAD_ITS ---
PROCEDURE INFORMATION: Exam: XR Chest, 1 View Exam date and time: 09/22/2020 10:55 AM Age: 84 years old Clinical indication: Other: Follow up aspiration pneumonia TECHNIQUE: Imaging protocol: XR of the chest Views: 1 view. COMPARISON: CR XR PORTABLE CHEST AP 09/18/2020 8:43 AM FINDINGS: Lungs: Right lower lobe atelectasis. Pleural space: Persistent right pleural effusion. Heart/Mediastinum: Unremarkable. No cardiomegaly. Bones/joints: Unremarkable. IMPRESSION: Right pleural effusion with adjacent atelectasis. Dictated and Authenticated by: Dilip Burrell MD. Ordering:NOE High MD
--- NOTE | 2020-09-22 18:02 | PDOC.CMPRO ---
- If Service Date Differs Date of service: 09/22/20 Time of Service: 18:02 Care Management Progress Note S/O: Raul was sleeping when CM attempted to meet with him today x2. CM spoke to his twice regarding his care, and discussing how well he is doing at home. She stated that his anxiety is constant at home, and that he feels like he cannot swallow, as if he is being choked. Speech was consulted, and met with him today, and recommended a Modified Barium Swallow study. CM discussed the option of sending a referral to [facility], once he is medically cleared, with staff, and with his . Veena stated that he prefers not to be in the hospital, but if [facility] can help with his anxiety, he may willing to participate. CM will continue to follow. A: Rhys is an 84 year old man admitted on 09/18/20 with weakness and a UTI P: Rhys will most likely return home with new home health services, although he may need placement for a time if symptoms do not resolve. He will follow up with his PCP and plan of care and transport with family. CM will continue to support Rhys and his Veena and assess for discharge planning needs and concerns.
[2020-09-22 19:23] VITALS: BP 136/65; PULSE 63; RESP 20; TEMP 35.4; O2SAT 96
[2020-09-23 02:50] VITALS: BP 136/64; PULSE 57; RESP 18; TEMP 36.8; O2SAT 95
[2020-09-23] MEDS: hydrOXYzine HCL 25 MG TAB PO ×2 (03:22→19:45)
[2020-09-23] MEDS: diazePAM 2 MG TAB PO ×2 (03:23→19:09)
[2020-09-23] MEDS: Heparin 5,000 UNITS/ML VIAL 5000 UNITS SC ×3 (03:23→19:29)
[2020-09-23 07:23] LABS: Abs Immature Grans 0.02 10^3/uL (0.0-0.06); Absolute Basophil Count 0.01 10^3/uL (0.0-0.2); Absolute Eosinophil Count 0.17 10^3/uL (0.0-0.7); Absolute Lymphocyte Count 0.76 10^3/uL (1.2-3.4); Absolute Monocyte Count 0.47 10^3/uL (0.1-0.8); Absolute Neutrophil Count 2.31 10^3/uL (1.2-6.7); Basophils % 0.3; Eosinophils % 4.5; HCT 32.5 % (40.0-50.0); HGB 10.8 g/dL (13.5-17.5); Immature Grans % 0.5; Lymphocytes % 20.3; MCH 33.5 pg (27.0-33.0); MCHC 33.2 % (32.0-36.0); MCV 100.9 fL (80-95); MPV 10.1 fL (8.0-11.0); Monocytes % 12.6; Neutrophils % 61.8; Nucleated RBC 0 %; Platelet Count 150 10^3/uL (130-400); RBC 3.22 10^6/uL (4.36-5.78); RDW 12.7 % (11.8-14.1); RDW-SD 47.1 fL; WBC 3.74 10^3/uL (4.4-10.8)
--- NOTE | 2020-09-23 08:30 | OT.INNT ---
Date of service: 09/23/20 Time of Service: 08:30 Occupational Therapy Notes 09/23/20 OT attempted to see pt who was sleeping, per RN they would like to hold on OT consult for today as pt is NPO and anxious about testing that will be performed later this morning. Sandhya Cortez, OTR/[facility]
[2020-09-23] MEDS: DOXYCYCLINE 100 MG in Normal Saline 100 ML IVPB ×2 (09:51→21:25)
[2020-09-23 11:02] VITALS: BP 130/69; PULSE 92; RESP 22; TEMP 36.5; O2SAT 97
--- NOTE | 2020-09-23 14:26 | PT.INNT ---
Date of service: 09/23/20 Time of Service: 14:26 PT Notes Visit Reasons: WEAKNESS, UTI 09/23/2020 Hold PT session x2 today, per nursing request. Will attempt to resume PT services tomorrow morning if appropriate.
--- NOTE | 2020-09-23 14:31 | W.PM.PROGNOT ---
Date of Service Date of service: 09/23/20 Time of Service: 14:31 Assessment and Plan Assessment and plan (1) Dysphagia: Status: Chronic Assessment and plan: Awaiting modified barium swallow; is interested in pating having EGD/Colonoscopy on this admission. (2) Anxiety: Status: Chronic Assessment and plan: Severe, on the background of likely dementia. Started on mirtazapine and gabapentin. Palliative care is asked to follow up re this issue. Continue prn diazepam. Consider longer-acting benzodiazepine. (3) CAP (community acquired pneumonia): Status: Acute Assessment and plan: Vs aspiration pneumonia, present on admission. No infiltrate on CXR, but there is a R pleural effusion. Finish antibiotics tomorrow (1 more day for the UTI). (4) UTI (urinary tract infection): Status: Acute Assessment and plan: Present on admission, in setting of urinary retention. Due to pansensitive E. Coli. On ceftriaxone. Finish abx tomorrow. Continue alvarado catheter. Evaluated by urology for urinary retention with recommendations to keep the alvarado catheter in place. intolerant to flomax (hypotension). Started on finasteride. 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 Discussed with neurology: will not start asa due to allergy to NSAIDS. Will not start plavix due to pending GI workup. (6) B12 deficiency: Status: Acute Assessment and plan: Replete. (7) Urinary retention: Status: Acute Assessment and plan: Continue proscar, alvarado catheter. Appreciate urology recommendations. (8) Weight loss: Status: Chronic Assessment and plan: No evidence of malignancy on CT C/A/P; however, given Dysphagia symptoms, EGD is being considered, in addition to colonoscopy to r/o a GI malignancy we might not easily see on imaging. is interested in the workup. Palliative care to hopefully connect with . Await modified barium swallow (9) Hypertension: Status: Chronic Assessment and plan: BPs much better on norvasc 2.5 mg PO daily - continue. Qualifiers: Hypertension type: essential hypertension Qualified Code(s): I10 - Essential (primary) hypertension (10) DVT prophylaxis: Status: Acute Assessment and plan: SC Heparin (11) Discharge planning issues: Status: Acute Assessment and plan: Full code Palliative care consulted to clarify goals of care Subjective Subjective Interval history since last seen: I feel so sick I could vomit. It's worse than nausea, it is feeling like someone is squeezing my throat. Woman, make me comfortable. Can I have a herve kathryn? Why do I feel like my throat is squeezing? I am not able to get Mr Merchant to focus on my questions. He is NPO for modified barium swallow today. Exam Narrative Exam Narrative: General: Elderly male, looks comfortable in bed, A&Ox1 at least, anxious, not letting me ask him questions; nonlabored breathing on room air HEENT: eyes closed, dry MM Heart: RRR, no m/r/g Lungs: diminished breath sounds B; nonlabored breathing Abdomen: scaphoid, nontender, nondistended Extremities: no edema BLE's Objective Last Vital Signs Temp 36.5 C 09/23/20 11:02 Pulse 92 H 09/23/20 11:02 Resp 22 09/23/20 11:02 BP 130/69 09/23/20 11:02 Pulse Ox 97 09/23/20 11:02 Laboratory Results - last 24 hr 09/23/20 06:40 WBC 3.74 L D RBC 3.22 L Hgb 10.8 L Hct 32.5 L MCV 100.9 H MCH 33.5 H MCHC 33.2 RDW 12.7 Plt Count 150 MPV 10.1 Immature Gran % 0.5 Neutrophils % 61.8 Lymphocytes % 20.3 Monocytes % 12.6 Eosinophils % 4.5 Basophils % 0.3 Nucleated RBC % 0 Absolute Neutrophils 2.31 Absolute Lymphocytes 0.76 L Absolute Monocytes 0.47 Absolute Eosinophils 0.17 Absolute Basophils 0.01 Objective Narrative Objective Narrative: CXR: Question of slight interval increase in size of right pleural effusion.
[2020-09-23 15:53] VITALS: BP 151/51; PULSE 77; RESP 18; TEMP 37; O2SAT 95
--- NOTE | 2020-09-23 17:25 | CMPROGNOTE_ITS ---
- If Service Date Differs Date of service: 09/23/20 Time of Service: 17:25 Care Management Progress Note S/O: ROX met with Raul this morning, and had a long discussion surrounding his NPO status. He did not understand why he wasn't able to have any liquids, and stated that it felt as if he was choking. He talked a lot about his experience at home, specifically feeling like he can't swallow, and as if someone is choking him. He stated that he knows that he is 'nervous' about it, and he feels that he may never have answers. CM reassured him that the staff at [facility] are doing our best to resolve his dysphasia. He was scheduled to have a modified barium swallow study today, and depending on those results, general surgery will be consulted for possible EGD. CM reached out to Dr. Murdock today, who stated that she has not yet connected with his , Veena. Veena had expressed a desire for him to go to [facility] earlier today, but has since decided that he should remain at [facility] for treatment. CM will continue to follow. A: Rhys is an 84 year old man admitted on 09/18/20 with weakness and a UTI P: Rhys will most likely return home with new home health services, although he may need placement for a time if symptoms do not resolve. He may benefit from an inpatient stay at [facility] to help with his anxiety, which CM will explore once he is medically cleared. He will follow up with his PCP and plan of care and transport with family. CM will continue to support Rhys and his Veena and assess for discharge planning needs and concerns.
--- NOTE | 2020-09-23 18:17 | AMB.SPSTP ---
Date of Service September 23, 2020 Subjective Patient received sleeping with aide in room, however easily aroused by clinician's voice, able to converse and answer questions appropriately. Agitation/paranoia increased with time spent with patient. Reports he just wants to wet his mouth, agreeable to ice chips, thin liquids via cup sip with hand over hand assist, and puree via tsp. Required extensive verbal education re: raising his HOB for initial po intake, then additional assist by COMMUNITY HEALTH WORKER to readjust patient to midline for continued trials, prior to which he demonstrated what he refers to as his 'episode' that happens frequently at home, including facial grimacing and writhing of arms; pt able to be calmed down with suggestion to take a long deep breath and with tactile stimulation/hand holding. Patient became agitated/confused and required frequent verbal cues during po trials to slow rate of intake, but was responsive to this if po administration was controlled by clinician, otherwise demonstrates impulsivity; increased intake does appear to exacerbate overt s/sx aspiration, however unable to determine nature of dysphagia, presence of aspiration, or efficiency of oropharyngeal swallow without objective imaging at this time (ie MBSS/modifed barium swallow study, to potentially take place afternoon of 09/24) DEATH CLEARANCE COORDINATOR attempted to contact patient's to discuss DEATH CLEARANCE COORDINATOR plan of care, left VM and contact information. Unclear if patient is agreeable to MBSS tomorrow, initially responds he is interested, but then states he will choke if he does (or does not) swallow ? Will reassess and attempt to contact patient's again tomorrow. Objective Fpc Goals: Patient will tolerate po intake of thin liquids via straw and minced and moist solids without overt s/s aspiration given caregiver assist Short Term Goals: Patient will tolerate po intake of thin liquids via cup sip without overt s/s aspiration given caregiver assist Patient will tolerate po intake of pureed solids liquids via cup sip without overt s/s aspiration given caregiver assist Assessment Extensive time spent with patient this evening for clinical swallowing evaluation and po trials, counseling/education. Suspect pharyngoesophageal dysphagia per patient report, however anxiety significantly impacting willingness and safety for po intake given observed behaviors. Pt is, however, appropriate for po intake only with risk management as outlined; see recommendations below. Recommendations: RISK MANAGEMENT *Oral care prior to and after po intake as tolerated *If pt is to receive PO, he MUST be fully upright in 90 degree seated position with his head at midline and alert. *Encourage patient to go slow / reduce rate of intake DIET TEXTURE(S) *Patient is appropriate for following diet textures, only with assist provided by caregiver to avoid impulsive po intake: - ice chips via teaspoon - IDDSI Level 4 Puree - small bites (via tsp) - IDDSI Level 0 Thin - small sips via cup only (no straws, as overt s/s aspiration noted) Plan DEATH CLEARANCE COORDINATOR to follow while on unit. Will reassess for MBSS appropriateness tomorrow, 09/24 (Patient does not need to be NPO prior to MBSS, however will need to be seated upright and transfer to chair) Rama Skaggs MA CCC-DEATH CLEARANCE COORDINATOR [phone] Coding CPT Codes EVALUATE SWALLOWING FUNCTION - [id number] ([id number])
[2020-09-23] MEDS: Normal Saline 1,000 ML 50 ML IV (19:43)
[2020-09-23 20:03] VITALS: BP 153/85; PULSE 88; RESP 18; TEMP 36.3; O2SAT 99
[2020-09-23] MEDS: Mirtazapine 15 MG TAB PO (21:25)
[2020-09-24] VITALS (7 sets, daily range): BP systolic 146–172; BP diastolic 72–93; PULSE 61–87; RESP 16–18; TEMP 36–37.4; O2SAT 96–98
--- NOTE | 2020-09-24 | DI.RAD_ITS ---
TECHNIQUE: Modified barium swallow was performed in conjunction with speech pathology. This study wa s performed the patient seated. CONTRAST MATERIAL: Oral barium Oral water soluble contrast was administered. COMPARISON: No exams were available for comparison FINDINGS: Note that this is not a dedicated esophagram, distal esophagus not evaluated. There was significant vallecular residue demonstrated, approximately equal in both valleculae. This resulted in significant buildup but there was no associated penetration or aspiration. No evidence of Zenker's diverticulum. No obvious hypertense upper esophageal sphincter. IMPRESSION: As above. No evidence of aspiration. See separate notes from speech therapist.
[2020-09-24] MEDS: Heparin 5,000 UNITS/ML VIAL 5000 UNITS SC ×3 (03:50→19:44)
[2020-09-24] MEDS: diazePAM 2 MG TAB PO ×2 (06:21→15:52)
[2020-09-24] MEDS: hydrOXYzine HCL 25 MG TAB PO (06:21)
--- NOTE | 2020-09-24 07:39 | PCPN_ITS ---
Date of service: 09/23/20 Time of Service: 09:39 Assessment and Plan Assessment and plan (1) Weight loss: Status: Chronic (2) Dysphagia: Status: Chronic (3) Urinary retention: Status: Acute (4) B12 deficiency: Status: Acute (5) Palliative care patient: Status: Acute Assessment and plan: I have called on a few occasions at home. Staff informed me that she is staying with a sister and to try her cell (which we didn't have!). Will try her cell. [phone]; sister: [phone] Subjective Subjective Interval history since last seen: Raul is an 84-year-old man who came here for weakness and weight loss. He has a severe anxiety disorder and per staff he fluctuates between being somnolent due to medication and having panic attacks. Staff is feeling that perhaps his stay at [facility] may be helpful in better stabilizing his medication. We have tried to reach his , unfortunately she was not at home and was staying with her sister. Something that staff was unaware of. I went in to see Raul today and he is peacefully resting in his bed. I gently try to wake him up. He was breathing normally but did not stir. Exam Narrative Exam Narrative: Resting peacefully in his bed. His heart is irregular. His lungs good aeration although unable to cooperate with our exam. His abdomen was soft nontender. Objective Last Vital Signs Temp 96.8 F L 09/24/20 03:58 Pulse 61 09/24/20 03:58 Resp 16 09/24/20 03:58 BP 159/74 H 09/24/20 03:58 Pulse Ox 96 09/24/20 03:58
--- NOTE | 2020-09-24 07:56 | NT_ITS ---
Date of service: 09/24/20 Time of Service: 07:56 Occupational Therapy Notes 09/24/20 At this time OT does not feel that pt is appropriate for OT services. Based on this OT will hold on pts consult. If MD feels that pt becomes appropriate, OT will need a new referral but is happy to consult with pt at that time. Sandhya Cortez, OTR/L [facility]
--- NOTE | 2020-09-24 08:18 | INDS_ITS ---
Date of service: 09/24/20 Time of Service: 08:18 PT Notes Visit Reasons: WEAKNESS, UTI Physical Therapy Inpatient Discharge Summary Date: 09/24/2020 Dates of service: 09/18/2020 through 09/22/2020 This is a clinical summary of care provided on the duration of dates listed above. No charge was made in the completion of this documentation. Referring Doctor: Promise Simeon NP PT Orders: PT CONSULT: Eval/Treat Precautions: Fall. Standard. Activity as tolerated. Decreased visual acuity. Patient Profile/Admitting Diagnosis: Raul is an 84-year-old male who presented to the ED on 09/18/2020 due to chief complaints of shaking, anorexia, and shortness of breath. Patient is diagnosed with urinary tract infection, generalized weakness, anxiety, memory deficit, and hyperlipidemia. PMHX: Medical History (Updated 09/18/20 @ 14:41 by Promise Simeon NP) Anorexia Eye degeneration Gout We will check a uric acid along with a CBC and CMP. Hearing loss Does not have a hearing aid but seems to function okay. 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 He does not want any treatment for this at present. He does not want any further x-rays. Social History/Home Situation: Lives with in a private home. States that at baseline he is independent with his single-point cane for all indoor and outdoor ambulation. Equipment Owned/DME: Single-point cane Subjective: NT. See most recent IOS DEVELOPER notes. Objective: General Observation: NT. See most recent IOS DEVELOPER notes. Mental Status: NT. See most recent IOS DEVELOPER notes. Pain: NT. See most recent IOS DEVELOPER notes. ROM: Right Upper Extremity: Shoulder Flexion WFL. Shoulder abduction WFL. Elbow flexion WFL. Wrist flexion WFL. Opening and closing of hand WFL. Left Upper Extremity: Shoulder Flexion WFL. Shoulder abduction WFL. Elbow flexion WFL. Wrist flexion WFL. Opening and closing of hand WFL. Right Lower Extremity: Hip flexion WFL. Hip abduction WFL. Knee flexion WFL. Ankle dorsiflexion WFL. Ankle plantarflexion WFL. Left Lower Extremity: Hip flexion WFL. Hip abduction WFL. Knee flexion WFL. Ankle dorsiflexion WFL. Ankle plantarflexion WFL. Strength: Right Upper Extremity: Shoulder flexors 4-/5. Shoulder abductors 4-/5. Elbow flexors 4-/5. Elbow extensors 4-/5. Information Coder strong. Left Upper Extremity: Shoulder flexors 4-/5. Shoulder abductors 4-/5. Elbow flexors 4-/5. Elbow extensors 4-/5. Information Coder strong. Right Lower Extremity: Hip flexors 3+/5. Hip abductors 3+/5. Knee flexors 4-/5. Knee extensors 3+/5. Ankle dorsiflexors 4/5. Ankle plantarflexors 4/5. Left Lower Extremity: Hip flexors 4-/5. Hip abductors 4-/5. Knee flexors 4-/5. Knee extensors 3+/5. Ankle dorsiflexors 4/5. Ankle plantarflexors 4/5. Sensation: Intact as to pain and pressure on bilateral lower extremities. Bed Mobility/Transfers: Rolling moderate to maximum assist of 3 Supine to sit moderate to maximum assist of 3 Sit to supine moderate to maximum assist of 3 Sit to stand moderate to maximum assist of 3 Stand to sit moderate to maximum assist of 3 Bed to chair moderate to maximum assist of 3 Chair to bed moderate to maximum assist of 3 Gait: of 09/22/2020, patient is able to negotiate up to 5 feet of short distance ambulation due to mental status changes. Balance: Static Sitting: Good Dynamic Sitting: Good Static Standing: Fair Dynamic Standing: Fair Assessment: Raul's prognosis for achieving PT goals is currently being limited by severe anxiety disorder and mental statuc changes from being somnolent to having panic attacks. He is not appropriate for PT services at this time and may need stabilization before services can continue. He continues to demonstrate functional mobility decline requiring downgrade of mobility assistive device to walker to minimize shakiness and unsteadiness, impairment with balance, decreased visual acuity, decreased activity tolerance, and increased risk of falls due to admitting diagnosis and co-morbidities. Patient continues to present with clinical signs and symptoms consistent with current/admitting diagnoses that have resulted to mobility limitations, gait instability, generalized weakness, and impairment of motor control as demonstrated by the following impairment level findings: 1. Decreased strength to B UE/LE major muscle groups 2. Impaired sitting/standing balance 3. Impaired activity tolerance 4. Severe anxiety 5. Changes in levels of alertness from being somnolence to having panic attacks Impairments are continuing to contribute to the following functional limitations: 1. Dependent bed mobility skills 2. Increased dependence with transfers 3. Inability to safely ambulate 4. Increase completion time for mobility ADL performance 5. Increased fall risk 6. Inability to negotiate steps alone safely Goals: Goals X1 week 1. Supine-Sit independent NOT MET 2. Sit-Supine independent NOT MET 3. Sit-Stand independent NOT MET 4. Stand-Sit independent NOT MET 5. Bed-Chair independent NOT MET 6. Chair-Bed independent NOT MET 7. Supervision gait on level surface with use of front wheeled walker for at least 300 feet without report of pain nor dyspnea NOT MET 8. Good static and dynamic standing balance/tolerance NOT MET DISCHARGE RECOMMENDATIONS: Hospitalist and CM recommending readmission back to [facility] for management of severe anxiety disorder. PT to re-evaluate once aanother referral is received. TREATMENT CODE/TIME: NC Thank you for the opportunity to participate in the care of this patient. Cristal Smith PT, DPT, CLT [facility] [place], [place]
[2020-09-24] MEDS: DOXYCYCLINE 100 MG in Normal Saline 100 ML IVPB (10:11)
[2020-09-24] MEDS: Finasteride 5 MG TAB PO (10:17)
[2020-09-24] MEDS: Gabapentin 100 MG CAP PO ×3 (10:17→19:44)
[2020-09-24] MEDS: Cyanocobalamin 500 MCG TAB 1000 MCG PO (10:18)
[2020-09-24] MEDS: amLODIPine 2.5 MG TAB PO (10:18)
--- NOTE | 2020-09-24 11:36 | PDOC.CMPRO ---
Care Management Progress Note S/O: Raul was discharged from PT/OT due to severed anxiety limiting engagement. Discussion in morning meeting included having nutrition try a magic cup and consideration for PEG tube placement; awaiting Palliative discussion. Banana bag started due to Raul's limited PO intake. CM continues to follow. A: Rhys is an 84 year old man admitted on 09/18/20 with weakness and a UTI P: Rhys will most likely return home with new home health services, although he may need placement for a time if symptoms do not resolve. He may benefit from an inpatient stay at [facility] to help with his anxiety, which CM will explore once he is medically cleared. He will follow up with his PCP and plan of care and transport with family. CM will continue to support Rhys and his Veena and assess for discharge planning needs and concerns.
--- NOTE | 2020-09-24 12:04 | W.NUTRFU ---
Date of service: 09/24/20 Time of Service: 12:05 Nutritional Follow up NOTE: Pt ordered puree diet with thin liquids- very poor intake documented since admission with frequent meal refusals. Pt remains very confused. Recently started mirtazapine that may increase appetite. IV fluids provided. At high nutritional risk and at high risk for skin breakdown. In view of poor nutrition status prior to admission, and very poor intake since admission, will need to consider peg placement if not able to increase calorie intake to meet at least 50% nutrient needs. Will continue with ensure BID, will also offer magic cup BID with staff assist. Estimated Needs: [id number] kcal, 62-72 g protien. Will need to complete > 75% of meals to meet nutrient needs. Will start 3 day calorie count at dinner today. Time Spent in Nutritional Counseling and Treatment: 0
--- NOTE | 2020-09-24 13:58 | W.PALPGNOTE ---
Date of service: 09/24/20 Time of Service: 14:58 Assessment and Plan Assessment and plan (1) Dysphagia: Status: Chronic (2) Urinary retention: Status: Acute (3) Anxiety: Status: Chronic (4) Palliative care patient: Status: Acute Assessment and plan: CODE STATUS I will be meeting with his Maegan to complete the COLST form at 4 PM at [facility]. Raul has on file a DPOA form. It was poorly executed but he clearly designates his is someone who can be consulted for decisions about him. This was done in 2018. At this time Raul's Maegan, feels that he would want to stay at [facility], have an EGD even though it might take until Monday to start the process, and if there is an anatomical structure problem, place an EGD Regarding medication to help Raul?he has had some diazepam and unfortunately he is either very anxious or sedated. We will try some trazodone 25 mg every 4 hours while awake and see if this helps him to handle his anxiety better and allows him also to be awake. I will be coming in later today to again see Raul and talk to him about his 's and my conversations. Addendum: I met with Maegan in the chapel and completed a COLST Form: DNR/DNI, still transport, antibiotics and IV fluids. Undecided about tube feedings, but probably. I then met with Raul upstairs and had Maegan on speaker phone..Nursing was in the room. Rhys was visably upset when talking to his . He didn't want to worry her. He did verbally (and in the 2018 DPOA form) agree Maegan could make decisions for him. He couldn't talk for long due to being quite emotional. He was able to have the barium swallow today. Results are pending. I explained to Maegan that it may be another day before Dr More would discuss next steps with her. Additionally we discussed What ifs What if his swallowing couldn''t be helped - she wanted him home; What about going to [facility] - she wanted him home. What if this is the best he can be - she wants him to be comfortable, she would want hospice and understands hospice visits, but she would be the primary caregiver. All questions were answered. I did discuss with Dr More my meeting with Maegan and Rhys. Thank you very much for this consult. I will continue to follow. Subjective Subjective Interval history since last seen: Raul continues inpatient. He has not eaten very much in fact not at all. He is very very nervous and concerned that if he swallows something that he is going to . PT and OT have stopped working with him because of his severe agitation/dementia/anxiety. I was finally able to get a hold of his Maegan at [phone]. We had 2 conversations so far today. Jade was very clear about several issues. She understands that he is not doing well and that he is very very anxious. She has decided that she does not want him to be transferred to another facility. She would rather have him remain at [facility]. We also discussed an EGD and what that would mean. She was in agreement to have that done to see if they could find ways to help him. Unfortunately the surgeons would want a barium swallow prior to having an EGD. This cannot be done until Monday. His understands this and is willing to wait. I also spoke with his about CODE STATUS. She quickly and firmly said no he would not want CPR, he would not want any of that. I talked to her about his wishes over there last several years. And she states that he was very clear that he did not want CPR. (She called that stuff being done to him) He remains very anxious Objective Last Vital Signs Temp 99.3 F 09/24/20 10:20 Pulse 80 09/24/20 10:20 Resp 18 09/24/20 10:20 BP 151/76 H 09/24/20 10:20 Pulse Ox 98 09/24/20 10:20
--- NOTE | 2020-09-24 14:10 | W.PM.PROGNOT ---
Date of Service Date of service: 09/24/20 Time of Service: 14:10 Assessment and Plan Assessment and plan (1) Urinary retention: Status: Acute Assessment and plan: He has not been able to tolerate alpha blockers because of hypotension. Starting finasteride is certainly reasonable although the maximum benefit is not reached for 3 to 6 months on average. At some point, we would do a voiding trial and see how he does. He did have a urinary tract infection, but he has never had any episodes of urosepsis. Subjective Subjective Interval history since last seen: The patient is still quite lethargic, and is not able to provide much information for me Exam Narrative Exam Narrative: His abdomen is soft. His bladder is not distended. His urine is grossly clear in the catheter drainage bag Objective Last Vital Signs Temp 37.4 C 09/24/20 10:20 Pulse 80 09/24/20 10:20 Resp 18 09/24/20 10:20 BP 151/76 H 09/24/20 10:20 Pulse Ox 98 09/24/20 10:20
[2020-09-24] MEDS: Barium Sulfate 40% W/V 240 ML BTL PO (15:31)
[2020-09-24] MEDS: Barium Sulfate 40% W/V 1500 CPS 250 ML BTL PO (15:32)
[2020-09-24] MEDS: Barium Sulfate 81% w/w for Oral Suspension 148 GM BTL PO (15:32)
--- NOTE | 2020-09-24 15:44 | ST.MBS ---
Modified Barium Swallow Date of service: 09/24/20 Study Findings: Videofluoroscopic Swallowing Evaluation / Modified Barium Swallow Study (VFSE/MBSS) Speech Language Pathology Report HPI: 84 year old male patient with complaints of dyspnea, choking sensation, meal refusals; admitted 09/18 with a UTI, weakness, question of dementia. Noted to be cachectic on admit, behavioral difficulties and high anxiety causing difficulties with care. (1) Dysphagia: Status: Chronic (2) Urinary retention: Status: Acute (3) Anxiety: Status: Chronic (4) Palliative care patient: Status: Acute Previous Imaging: N/A Interval History: RD Assessment 09/24 - Pt ordered puree diet with thin liquids- very poor intake documented since admission with frequent meal refusals. Pt remains very confused. Recently started mirtazapine that may increase appetite. IV fluids provided. At high nutritional risk and at high risk for skin breakdown. In view of poor nutrition status prior to admission, and very poor intake since admission, will need to consider peg placement if not able to increase calorie intake to meet at least 50% nutrient needs. Will continue with ensure BID, will also offer magic cup BID with staff assist. Estimated Needs: [id number] kcal, 62-72 g protien. Will need to complete > 75% of meals to meet nutrient needs. Will start 3 day calorie count at dinner today. Has been deemed inappropriate for PT/OT at this time. SUBJECTIVE: Patient participated in modified barium swallow study MBSS/VFSS afternoon of 09/24 provided consistent verbal cueing and assist of 2 for transfer from to fluoro bench seat; was able to tolerate partial procedure well although unable to trial solid foods without dentures (pt also refuses solid foods at this time without dentures, is aware of need to effectively masticate) and did not trial barium tablet given increase in anxious behaviors/refusal. Required frequent, patient-centered redirections to reduce anxiety level prior to MD arriving. Did initially close eyes and state I'm gone after initial PO trials (thin liquids, mildly thick liquids, and moderately thick liquids), then was able to regain composure with redirections to participate in final PO trial (level 4 puree) before refusing, during which study was ended. OBJECTIVE: Videofluoroscopic Swallow Study (VFSS) was conducted in the lateral projection by Speech-Language Pathologist, in collaboration with Radiologist, to evaluate oropharyngeal swallow function. Patient does not tolerate AP projection today. Anatomic view under fluoroscopy: WFL PO barium contrast trials: Oral barium water soluble contrast was administered. Specifically, Varibar thin liquid IDDSI Level 0 (40% w/v), Varibar nectar thick/mildly thick liquid IDDSI Level 2 (40% w/v), Varibar thin honey/liquidised/moderately-thick IDDSI Level 3 (40% w/v), Varibar pudding/pureed/extrememely thick IDDSI Level 4 (40% w/v) PHYSIOLOGIC FINDINGS Oral Phase 1 Lip Closure: 0 no labial escape 2 Tongue Control: 1 escape to lateral buccal cavity/floor of mouth 3 Bolus Preparation/Mastication: Unable to assess 4 Bolus Transport/Lingual Motion: 1 delayed initiation of tongue motion 5 Oral residue: 1 trace residue lining oral structures 6 Initiation of pharyngeal swallow: 3 bolus head in pyriforms Pharyngeal Phase 7 Velar Elevation: 0 no bolus between soft palate and pharyngeal wall 8 Laryngeal Elevation: 1 partial superior movement of thyroid cartilage/partial approximation of arytenoids to epiglottic petiole 9 Anterior Hyoid Excursion: 0 complete anterior movement 10 Epiglottic Movement: 1 partial anterior movement 11 Laryngeal Vestibule Closure: 0 complete-no air/contrast in the laryngeal vestibule 12 Pharyngeal Stripping Wave: 1 present-diminished 13 Pharyngeal Contraction: Unable to assess due to lack of AP view 14 PES/UES Openin complete distention incomplete duration; no obstruction of flow 15 Tongue Base Retraction: 2 narrow column of contrast or air between tongue base and pharyngeal wall 16 Pharyngeal residue: 2 collection of residue within or on pharyngeal structures, moderate amount remaining in vallecular space after initial swallow [place] Pharyngeal Residue Severity Rating Scale (YPRS) Vallecula Residue Severity IV Moderate 25-50% Epiglottic ligament covered - majority of po trials Pyriform Sinus Residue Severity III Mild 5-25% Up wall to quarter full - with straw Esophageal Phase (partial) NOTE: This study was performed for interpretation only of the oropharyngeal and pharyngoesophageal domains of swallowing. It is not intended to diagnose any other radiologic abnormalities or substitute for a formal esophagram study. 17 Esophageal Clearance Upright Position: unable to fully assess given inability to view in AP projection; per Radiology, no evidence of Zenker's diverticulum, no obvious hypertense UES. DIGEST Scale Rating: N/A Overall 8-Point Penetration-Aspiration Scale (PAS) 1 - No material enters the airway. Clinical Indicator(s) of Prandial/Postprandial Aspiration: N/A Trialed Compensatory Swallow Strategies & Outcome: Postures Chin Tuck Posture - mildly successful in slowing RR, unsuccessful in reducing severity of vallecular residue Head Turn to Left - unsuccessful Maneuvers Volitional Cough - unsuccessful Volitional Throat Clear - unsuccessful Secondary saliva swallow x[3] - mildly successful in gradually reducing level of vallecular residue Bolus Modifications Delivery/Alternating Consistencies - Wash with thin mildly thick liquid - unsuccessful Delivery/Via Straw - unsuccessful, resulted in increased PS residue Reduced Volume - successful in reducing severity of vallecular residue Reduced Rate of Intake - successful in reducing severity of vallecular residue Increased Viscosity - no change Consistent moderate b/l vallecular residue with all trials, no saeed aspiration noted; patient only able to clear partial vallecular residue with repeated chin tuck+effortful swallow (and able to follow these directions with combination of verbal+visual+tactile cues). Patient only able to propel ~10mL of thin liquid via straw during study today, with prespill to pyriform sinus. Dysphagia Outcome and Severity Scale (JOHAN): LEVEL 3 - Full PO: modified diet and/or independence - Moderate dysphagia; Total assist, supervision, or strategies 2 or more diet consistencies restricted IMPRESSIONS: Moderate oropharyngeal dysphagia, likely [id number] related to cognitive decline with suspected dementia, complicated by anxiety. Swallow safety is preserved; swallow efficiency is moderately impaired; diffuse oropharyngeal weakness/reduced coordination noted. Note: despite (-) aspiration noted with use of straw, depending on combination of posture, behaviors, and environmental distractions, prespill of liquids to pyriform sinus may increase risk of aspiration, especially if patient is simultaneously speaking after initial swallow attempt; this, in addition to consistent vallecular residue, may be partially contributing to patient's observed anxious episodes during and/or after po intake. 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 Patient has voiced his wish for continued po intake multiple times over past 2 days. Overall, patient is at moderate risk for pulmonary compromise given frequent anxious behavioral episodes, which appear to increase RR and cause patient to change his posture. Improvements in physical mobility, consistent oral hygiene, risk management as outlined below, and verbal counseling/redirections during mealtimes are likely to reduce this risk. Patient may be a candidate for RMST to address weakened cough response, although unclear how well he may participate. PLAN: Diet recommendation: 4-Pureed Solids 0-Thin Liquids Diet texture modification is per patient's preference; please adjust diet textures at patient's discretion & collaboration with care team. RISK MANAGEMENT *Oral care prior to and after po intake as tolerated *If pt is agreeable to receiving PO with assist, he MUST be fully upright in 90 degree seated position with his head at midline and alert. *Small bites (via tsp) and small sips via cup (encourage patient to avoid straws) *Encourage patient to go slow / reduce rate of intake If patient reports he is having difficulty swallowing while eating: Calmly encourage patient to tuck chin and swallow hard (2-3x as tolerated) prior to offering next bite or sip (vs providing patient with additional drink) Helpful Verbal Cues: Chin down Now try to swallow it down hard Patient responds well to initial modeling and/or tactile cues as needed during and after study (ie consider showing him what the chin tuck looks like first, then if needed, gently touch his chin and point to his chest) If patient continues to refuse PO intake, may consider: (a) Long-term enteral feeding route (e.g., PEG) - this option does not reduce probability of aspiration of secretions or mortality & will likely reduce QOL (b) PO comfort feeding per patient request, despite potential for aspiration/malnutrition/dehydration risk with current behaviors Specialist referrals: Continued consultation with Palliative care/family with consideration of bioethical concerns. Thank you for allowing me to take part in this patient's care. Please feel free to contact me with any questions/concerns. Rama Skaggs MA [facility]-REHABILITATION TEACHER Speech Language Pathologist References: Brandy Hatfield., Karina Baeza., & Lian, SGeneva Valenzuela. (2015). The [place] Pharyngeal Residue Severity Rating Scale: An Anatomically Defined and Image-Based Tool. Dysphagia, 30(5), 521-528. Carly Workman., Carly Sears., Malorie Arriaga., Carly Omalley., & Carly Gramajo. (1996). A penetration-aspiration scale. Dysphagia, 11, 93-98. OAdalberto Martinez., Geno aDsh, Carly Cain, & Stephani Jack (1999). The Dysphagia Outcome and Severity Scale. Dysphagia, 14, 139-145. REHABILITATION TEACHER SERVICE CODE(S): Modified Barium Swallow Study 69801
--- NOTE | 2020-09-24 16:04 | W.PM.PROGNOT ---
Date of Service Date of service: 09/24/20 Time of Service: 16:05 Assessment and Plan Assessment and plan (1) Dysphagia: Status: Chronic Assessment and plan: Await results of modified barium swallow; is interested in pating having EGD +/- PEG on this admission, if indicated. (2) Anxiety: Status: Chronic Assessment and plan: Severe, on the background of likely dementia. Started on mirtazapine and gabapentin. Per recommendations of palliative care, add trazodone 25 mg PO Q4hrs. Continue prn diazepam. (3) CAP (community acquired pneumonia): Status: Acute Assessment and plan: Vs aspiration pneumonia, present on admission. No infiltrate on CXR, but there is a R pleural effusion. Finish antibiotics. (4) UTI (urinary tract infection): Status: Acute Assessment and plan: Present on admission, in setting of urinary retention. Due to pansensitive E. Coli. Finish ceftriaxone today. Evaluated by urology for urinary retention with recommendations to keep the alvarado catheter in place. intolerant to flomax (hypotension). Started on finasteride. Voiding trial ok to happen over the weekend. 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 Discussed with neurology: will not start asa due to allergy to NSAIDS. Will not start plavix due to pending GI workup. (6) B12 deficiency: Status: Acute Assessment and plan: Replete. (7) Urinary retention: Status: Acute Assessment and plan: Continue proscar, alvarado catheter. Appreciate urology recommendations. VT prior to discharge home. (8) Weight loss: Status: Chronic Assessment and plan: No evidence of malignancy on CT C/A/P; however, given Dysphagia symptoms, EGD is being considered, in addition to colonoscopy to r/o a GI malignancy we might not easily see on imaging. is interested in the workup. Await modified barium swallow results. (9) Hypertension: Status: Chronic Assessment and plan: BPs much better on norvasc 2.5 mg PO daily - continue. Qualifiers: Hypertension type: essential hypertension Qualified Code(s): I10 - Essential (primary) hypertension (10) DVT prophylaxis: Status: Acute Assessment and plan: SC Heparin (11) Discharge planning issues: Status: Acute Assessment and plan: DNR/DNI, per conversation with . Subjective Subjective Interval history since last seen: Mr Merchant is s/p MBS today. Results are not yet available. He did require valium just now. Interestingly, he says that just now, it does not feel like it is difficult to swallow and requests herve kathryn. To the nurse, he stated he couldn't swallow just minutes ago. He does not have any pain or shortness of breath. He was anxious this morning and received prns then. Palliative care connected with : [facility] form signed. Interested in EGD/PEG if needed. Exam Narrative Exam Narrative: General: Elderly male, A&Ox1, anxious, sitting up in bed, drinking herve kathryn HEENT: EOMI, MMM Heart: RRR, no m/r/g Lungs: diminished breath sounds B; nonlabored breathing Abdomen: scaphoid, nontender, nondistended Extremities: no edema BLE's Objective Last Vital Signs Temp 37.4 C 09/24/20 10:20 Pulse 80 09/24/20 10:20 Resp 18 09/24/20 10:20 BP 151/76 H 09/24/20 10:20 Pulse Ox 98 09/24/20 10:20
--- NOTE | 2020-09-24 16:05 | PDOC.STREC ---
Date of service: 09/24/20 Time of Service: 16:05 Speech Therapy Recommendations Report ST Recommendations: S: Patient participated in modified barium swallow study MBSS/VFSS this afternoon provided consistent verbal cueing and assist of 2 for transfer from WC to fluoro bench seat; was able to tolerate partial procedure well although unable to trial solid foods without dentures (pt also refuses solid foods at this time without dentures, is aware of need to effectively masticate) and did not trial barium tablet given increase in anxious behaviors/refusal. Required frequent, patient-centered redirections to reduce anxiety level prior to MD arriving. Did initially close eyes and state I'm gone after initial PO trials (thin liquids, mildly thick liquids, and moderately thick liquids), then was able to regain composure with redirections to participate in final PO trial (level 4 puree) before refusing, during which study was ended. O: 8 Point Penetration-Aspiration Scale: 1 - Material does not enter airway Swallow safety appears intact; swallow efficiency is impaired. Full INTERACTIVE MARKETING STRATEGIST report detailing oropharyngeal swallowing anatomy/physiology to follow. Consistent b/l vallecular residue with all trials, no saeed aspiration noted; patient only able to clear partial vallecular residue with repeated chin tuck+effortful swallow (and able to follow these directions with combination of verbal+visual+tactile cues). Patient only able to propel ~10mL of thin liquid via straw during study today, with prespill to pyriform sinus. A: Note: despite (-) aspiration noted with use of straw, depending on combination of posture, behaviors, and environmental distractions, prespill of liquids to pyriform sinus increase risk of pulmonary compromise, especially if patient is simultaneously speaking after initial swallow attempt; this, in addition to consistent vallecular residue, may be partially contributing to patient's observed anxious episodes during and/or after po intake. 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 Patient has voiced his wish for continued po intake multiple times over past 2 days. Overall, patient is at moderate risk for pulmonary compromise given frequent anxious behavioral episodes, which appear to increase RR and cause patient to change his posture. Improvements in physical mobility, consistent oral hygiene, risk management as outlined below, and verbal counseling/redirections during mealtimes are likely to reduce this risk. Patient may be a candidate for RMST to address weakened cough response, although unclear how well he may participate. P: Current Recommendations: Patient is appropriate for PO diet (pureed IDDSI level 4 solids / thin IDDSI level 0 liquids) with risk management as outlined below. RISK MANAGEMENT *Oral care prior to and after po intake as tolerated *If pt is agreeable to receiving PO with assist, he MUST be fully upright in 90 degree seated position with his head at midline and alert. *Small bites (via tsp) and small sips via cup (encourage patient to avoid straws) *Encourage patient to go slow / reduce rate of intake If patient reports he is having difficulty swallowing while eating: Calmly encourage patient to tuck chin and swallow hard (2-3x as tolerated) prior to offering next bite or sip (vs providing patient with additional drink) Helpful Verbal Cues: Chin down Now try to swallow it down hard Patient responds well to initial modeling and/or tactile cues as needed today (ie consider showing him what the chin tuck looks like first, then if needed, gently touch his chin and point to his chest) If patient continues to refuse PO intake, may consider: (a) Long-term enteral feeding route (e.g., PEG) - this option does not reduce probability of aspiration of secretions or mortality & will likely reduce QOL (b) PO comfort feeding per patient request, despite potential for aspiration/malnutrition/dehydration risk with current behaviors Specialist referrals: Continued consultation with palliative care/family with consideration of bioethical concerns. INTERACTIVE MARKETING STRATEGIST spoke with prior to MBSS today, provided direct number. Please feel free to contact me with any questions/concerns. Thank you for allowing me to take part in this patient's care. Rama Skaggs MA [facility]-INTERACTIVE MARKETING STRATEGIST [phone]
--- NOTE | 2020-09-24 18:41 | PGE_ITS ---
Date of Service Date of service: 09/24/20 Time of Service: 18:42 Subjective Subjective Interval history since last seen: Speech consult 09/24: Overall, patient is at moderate risk for pulmonary compromise given frequent anxious behavioral episodes, which appear to increase RR and cause patient to change his posture. Improvements in physical mobility, consistent oral hygiene, risk management as outlined below, and verbal counseling/redirections during mealtimes are likely to reduce this risk. Patient may be a candidate for RMST to address weakened cough response, although unclear how well he may participate. P: Current Recommendations: Patient is appropriate for PO diet (pureed IDDSI level 4 solids / thin IDDSI level 0 liquids) with risk management as outlined below. echo 09/17 onclusion Left Ventricle : The left ventricle is normal size. Left ventricular systolic function is borderline. There is normal left ventricular wall thickness. There is normal LV segmental wall motion. LVEF is 50%. Diastolic function is indeter minate. Right Ventricle : Right ventricle is not well visualized. Right ventricular systolic function could not be assessed. Atria : The left atrium size is normal. The right atrium size is normal. Aortic Valve : The Aortic valve is sclerotic. Aortic valve is probably trileaflet. There is no aortic valvular stenosis. Mild aortic regurgitation. Mitral Valve : Mild mitral annular calcification. Mild mitral regurgitation. No evidence of mitral valve stenosis. Great Vessels : The aortic root is normal in size. Ascending aorta is not well visualized. The IVC collapses <50% with normal respiration. Please see remainder of study for further details. NDINGS: The examination is limited due to patient motion artifact. Tracheobronchial tree: Patent where visualized. Pulmonary parenchyma: No consolidation or dominant measurable mass. Mild pulmonary fibrosis. Examination is limited due to patient respiration artifact. Pulmonary Arteries: No evidence of filling defect to suggest pulmonary emboli. Mediastinum and Sera: No dominant adenopathy or fluid collection. Visualized thyroid gland: Unremarkable. Pleura: There is a small right pleural effusion. No left pleural effusion. No pneumothorax. Heart: The heart is not dilated. Moderate coronary artery calcification. No pericardial effusion. Aorta: Thoracic aorta non-dilated. Atherosclerosis. No evidence of dissection. Upper abdomen: Unremarkable. Soft tissues: Unremarkable. Bones: There is a mild compression deformity of the T12 vertebral body this is indeterminate in age. IMPRESSION: 1. No evidence of pulmonary embolism, thoracic aortic dissection or aneurysm. 2. Mild T12 compression deformity. This is of indeterminate age. 3. Findings were discussed with the emergency department on the date of the examination Dictated By: Rich Galindo M.D. 09/18/20 0956 PRESSION: 1. There is some infiltrate in the right lung base and there is a small right pleural effusion noted. This appears unchanged in for size from yesterday's chest CT scan. 2. The urinary bladder is distended. No obvious bladder mass. 3. Minimally dilated bilateral urinary tract collecting systems, symmetrical in appearance and possibly related to bladder outlet obstruction, despite prostate not being grossly enlarged. There is no obvious mass in the urinary bladder. Dictated By: Abhinav Dominguez M.D. 09/19/201950 Patient cannot give any history secondary to his dementia. I did review the notes. I have discussed the case with Dr. Almonte. I see no signs malignancy on his CT scans. Patient is not a good candidate for anesthesia based on his frailty score. However I did discuss the case with anesthesia and they are willing to do anesthesia for an EGD. I do not feel the patient is safe for colonoscopy. If the patient's consents we will consider doing EGD tomorrow. Patient is a DNR/DNI. I do not recommend putting a feeding tube in this patient. He should go on palliative care and hospice. Objective Last Vital Signs Temp 36.5 C 09/24/20 16:11 Pulse 68 09/24/20 16:11 Resp 17 09/24/20 16:11 BP 157/85 H 09/24/20 16:11 Pulse Ox 98 09/24/20 16:11
[2020-09-24] MEDS: Mirtazapine 15 MG TAB PO (22:05)
[2020-09-24] MEDS: traZODone 50 MG TAB 25 MG PO (22:05)
[2020-09-25] MEDS: traZODone 50 MG TAB 25 MG PO ×3 (01:19→21:44)
[2020-09-25 02:58] VITALS: BP 147/66; PULSE 79; RESP 17; TEMP 36.6; O2SAT 97
[2020-09-25] MEDS: Heparin 5,000 UNITS/ML VIAL 5000 UNITS SC (03:26)
[2020-09-25] MEDS: Normal Saline 1,000 ML 75 ML IV (03:43)
[2020-09-25 07:15] VITALS: BP 147/75; PULSE 85; RESP 18; TEMP 34.6; O2SAT 96
[2020-09-25 07:19] LABS: HCT 31.8 % (40.0-50.0); HGB 10.7 g/dL (13.5-17.5); MCH 33.5 pg (27.0-33.0); MCHC 33.6 % (32.0-36.0); MCV 99.7 fL (80-95); MPV 9.5 fL (8.0-11.0); Platelet Count 142 10^3/uL (130-400); RBC 3.19 10^6/uL (4.36-5.78); RDW 12.4 % (11.8-14.1); RDW-SD 45.1 fL; WBC 3.89 10^3/uL (4.4-10.8)
[2020-09-25 11:21] VITALS: BP 140/73; PULSE 78; RESP 17; TEMP 35.5; O2SAT 98
--- NOTE | 2020-09-25 13:35 | W.PALPGNOTE ---
Date of service: 09/25/20 Time of Service: 13:35 Assessment and Plan Assessment and plan (1) Weight loss: Status: Chronic (2) Dysphagia: Status: Chronic (3) Urinary retention: Status: Acute Assessment and plan: continue with alvarado in place (4) Palliative care patient: Status: Acute Assessment and plan: Discussion with Veena, Dr More and Dr Benton over the last few hours. At this point Veena wants her to come home. She feels she can care for him and take care of his alvarado. She would like hospice and understands he will mostlikely soon. Plan: Hospice consult I recommended a trial of hyocyamine 0.125mg BID to see if it helps with the esophageal spasm. If his confusion worsens or he exhibits other anticholinergic effects, this will need to be stopped. (5) Physician orders for life-sustaining treatment (POLST) form indicates patient wish for [id number] status: Status: Acute Subjective Subjective Interval history since last seen: Pt remains anxious, but per hospitalist, slightly better. Dr Benton was concerned about Rhys's fraility and did not feel it was in his best interest to undergo an egd or PEG tube. She spoke with , Veena, who wants him to be kept comfortable I called Veena to discuss next steps. Exam Narrative Exam Narrative: telehealth visit Objective Last Vital Signs Temp 95.9 F L 09/25/20 11:21 Pulse 78 09/25/20 11:21 Resp 17 09/25/20 11:21 BP 140/73 09/25/20 11:21 Pulse Ox 98 09/25/20 11:21 Laboratory Results - last 24 hr 09/25/20 07:00 WBC 3.89 L RBC 3.19 L Hgb 10.7 L Hct 31.8 L MCV 99.7 H MCH 33.5 H MCHC 33.6 RDW 12.4 Plt Count 142 MPV 9.5
--- NOTE | 2020-09-25 15:28 | W.PM.PROGNOT ---
Date of Service Date of service: 09/25/20 Time of Service: 15:28 Assessment and Plan Assessment and plan (1) Weakness: Start date: 09/25/20 Start time: 15:33 Status: Acute Assessment and plan: Due to increase in weakness with FTT and worsening dementia it was decideded by Dr. Stratton and pt that patient would be discharged home on hospice tomorrow. Hopsice consult placed. (2) Hypertension: Start date: 09/25/20 Start time: 15:36 Status: Chronic Assessment and plan: Not requiring anything at this time as he has been normotensive for the most part he has had episodes of hypertension but not consistently and likely when he was agitated. Qualifiers: Hypertension type: essential hypertension Qualified Code(s): I10 - Essential (primary) hypertension (3) Hyperlipidemia: Start date: 09/25/20 Start time: 15:36 Status: Acute Assessment and plan: Per history HLD, but not currently on anything will check lipid panel in am Qualifiers: Hyperlipidemia type: unspecified Qualified Code(s): E78.5 - Hyperlipidemia, unspecified (4) Discharge planning issues: Start date: 09/25/20 Start time: 15:36 Status: Acute Assessment and plan: Going home on hospice tomorrow. above case discussed with Dr. More, Subjective Subjective Patient reports: other Interval history since last seen: Continues to feel anxious, decision was made between surgery and palliative with patient that patient would go home with hospice tomorrow. Exam Const General: cooperative, frail appearing and ill appearing chronically Nutritional Appearance: underweight Orientation: alert, oriented to person and confused HENDE Head: normal to inspection, normocephalic and atraumatic Ears: hearing grossly normal bilaterally Face and sinus: normal facial exam and face symmetric Mouth: moist mucous membranes Eyes Visual Colin: visual colin abnormal by confrontation and abnormal by confrontation Eyelids: eyelids normal Conjunctivae: conjunctivae normal Sclera: sclerae normal Pupils: PERRL EOM: EOM intact bilaterally Neck Neck: normal visual inspection and no JVD Thyroid: abnormal thyroid and other (palpable) Lymphatic: no lymphadenopathy noted Resp Effort & Inspection: normal respiratory effort Auscultation: clear to auscultation bilaterally Cardio Jugular venous pressure: no JVD Rate: regular rate Rhythm: regular rhythm Heart Sounds: S1 normal and S2 normal GI Inspection: scaphoid Palpation: soft and no hepatosplenomegaly Auscultation: normal bowel sounds Back/Spine/Pelvis Back: no CVA tenderness Thoracic/Lumbar Spine: thoracic and lumbar spine normal to inspection Skin General skin exam: no rashes or lesions noted Neuro General: patient alert, not oriented x3 and patient confused Cognition: abnormal cognition Speech: speech normal Extrem General: normal to inspection, full ROM and no clubbing, cyanosis or edema Psych Appearance: well kempt Mental Status: other (highly anxious) Speech and Movement: speech and movement normal Mood: other (highly anxious) Objective Last Vital Signs Temp 35.5 C L 09/25/20 11:21 Pulse 78 09/25/20 11:21 Resp 17 09/25/20 11:21 BP 140/73 09/25/20 11:21 Pulse Ox 98 09/25/20 11:21 Laboratory Results - last 24 hr 09/25/20 07:00 WBC 3.89 L RBC 3.19 L Hgb 10.7 L Hct 31.8 L MCV 99.7 H MCH 33.5 H MCHC 33.6 RDW 12.4 Plt Count 142 MPV 9.5
--- NOTE | 2020-09-25 16:59 | W.PM.PROGNOT ---
Date of Service Date of service: 09/25/20 Time of Service: 13:00 Assessment and Plan Assessment and plan (1) Weight loss: Status: Chronic (2) Dysphagia: Status: Chronic Assessment and plan: CT done of chest/abdom/pelvis on 09/17 is normal. There is no esophageal dilation/diverticula/mass/adenopathy. There are no signs of any esophageal cancer. If there were any signs of any cancers, he would not be a candidate for surgery or chemoradiation. Notes from speech reviewed. I did discuss with the patient's . He is quite frail and from an anesthetic standpoint he would be high risk. He is at high risk for aspiration, and breathing problems during the EGD. He is at high risk for aspiration from this procedure. He is at high risk for heart attack or stroke during the procedure. Doing an EGD would be diagnostic. It would not be therapeutic. It is not going to change or alleviate any of his swallowing problems. I think his swallowing problems stem from the fact that he has just gotten very week-ever the cause may be. THey are physiological and not anatomical. Please see the notes from speech. Did discuss all of this with his . She just wants to make him comfortable. She does not want to put him through any procedures where he has a risk of a heart attack or stroke. And I do not feel the benefits outweigh the risks in this case. (3) Urinary retention: Status: Acute (4) Lacerations of multiple sites of right arm: Status: Acute (5) Memory deficit: Status: Acute (6) Weakness: Status: Acute (7) Anxiety: Status: Chronic (8) Anorexia: Status: Acute Objective Last Vital Signs Temp 35.5 C L 09/25/20 11:21 Pulse 78 09/25/20 11:21 Resp 17 09/25/20 11:21 BP 140/73 09/25/20 11:21 Pulse Ox 98 09/25/20 11:21 Laboratory Results - last 24 hr 09/25/20 07:00 WBC 3.89 L RBC 3.19 L Hgb 10.7 L Hct 31.8 L MCV 99.7 H MCH 33.5 H MCHC 33.6 RDW 12.4 Plt Count 142 MPV 9.5
--- NOTE | 2020-09-25 19:34 | PDOC.CMPRO ---
- If Service Date Differs Date of service: 09/25/20 Time of Service: 19:34 Care Management Progress Note S/O: Raul was sleeping when CM attempted to meet with him. CM discussed his plan with his provider, who stated that he will be discharged home with Hospice support tomorrow. Per Palliative Care provider, EGD will not be performed, and his would like to bring him home now. Previously, Veena has stated that she wants him to be home, and that he does not want to be in the hospital. After a long, complicated acute stay, she is ready for him to return home. CM was unable to discuss this with Raul, but will continue to attempt to visit. CM called Hospice, who stated that they can admit him to Hospice on Monday. CM will continue to follow. A: Rhys is an 84 year old man admitted on 09/18/20 with weakness and a UTI P: Rhys will most likely return home with new home health services vs Hospice support. He will follow up with his PCP and plan of care and transport with family. CM will continue to support Rhys and his Veena and assess for discharge planning needs and concerns.
[2020-09-25] MEDS: Gabapentin 100 MG CAP PO (21:43)
[2020-09-25] MEDS: Hyoscyamine 0.125 MG SL/ORAL/CHEW SL (21:43)
[2020-09-25] MEDS: Mirtazapine 15 MG TAB PO (21:44)
[2020-09-26 07:19] LABS: Abs Immature Grans 0.01 10^3/uL (0.0-0.06); Absolute Basophil Count 0.01 10^3/uL (0.0-0.2); Absolute Eosinophil Count 0.23 10^3/uL (0.0-0.7); Absolute Lymphocyte Count 0.98 10^3/uL (1.2-3.4); Absolute Monocyte Count 0.57 10^3/uL (0.1-0.8); Basophils % 0.3; Eosinophils % 6.1; HCT 31.9 % (40.0-50.0); HGB 10.9 g/dL (13.5-17.5); Immature Grans % 0.3; Lymphocytes % 25.8; MCH 34.4 pg (27.0-33.0); MCHC 34.2 % (32.0-36.0); MCV 100.6 fL (80-95); MPV 9.6 fL (8.0-11.0); Neutrophils % 52.5; Nucleated RBC 0 %; Platelet Count 145 10^3/uL (130-400); RBC 3.17 10^6/uL (4.36-5.78); RDW 12.4 % (11.8-14.1); RDW-SD 46.2 fL
[2020-09-26 07:35] LABS: Anion Gap 6.4 mmol/L (3-11); BUN 13 mg/dL (7-18); CO2 28.6 mmol/L (21.0-32.0); CREATININE 0.7 mg/dL (0.70-1.30); Calcium 8.5 mg/dL (8.5-10.1); Chloride 103 mmol/L (98-107); Glucose 79 mg/dL (74-106); Magnesium 1.8 mg/dL (1.8-2.4); Potassium 3.3 mmol/L (3.5-5.1); Sodium 138 mmol/L (136-145)
[2020-09-26] MEDS: Gabapentin 100 MG CAP PO (08:53)
[2020-09-26] MEDS: Hyoscyamine 0.125 MG SL/ORAL/CHEW SL (08:54)
[2020-09-26] MEDS: Cyanocobalamin 500 MCG TAB 1000 MCG PO (08:54)
[2020-09-26] MEDS: Finasteride 5 MG TAB PO (08:54)
[2020-09-26] MEDS: amLODIPine 2.5 MG TAB PO (08:54)
[2020-09-26] MEDS: Normal Saline Flush 10 ML SYR IVP (08:54)
[2020-09-26] MEDS: Potassium Chloride 20 MEQ TABCR 40 MEQ PO (10:15)
[2020-09-26] MEDS: traZODone 50 MG TAB 25 MG PO (10:16)
[2020-09-26] MEDS: diazePAM 2 MG TAB PO (11:14)
--- NOTE | 2020-09-26 11:52 | DSE_ITS ---
Date of service: 09/26/20 Time of Service: 11:53 DS: Diagnosis Discharge Diagnosis (1) Weight loss: Start date: 09/26/20 Start time: 11:53 Status: Chronic Asessment and Plan: Likely due to worsening dementia with FTT will be discharged home on hospice. Patient wants to be discharged home today and hospice will meet patient at house tomorrow (2) Dysphagia: Start date: 09/26/20 Start time: 11:54 Status: Chronic Asessment and Plan: Intermittent, unable to have swallow eval done due to patient being unable to follow directions (3) Urinary retention: Start date: 09/26/20 Start time: 11:55 Status: Resolved Asessment and Plan: Alvarado catheter i would keep in since going home on hospice, but i think he would just pull at it in his anxiety renal u/s unremarkable, continue finestride (4) Lacerations of multiple sites of right arm: Start date: 09/26/20 Start time: 11:56 Status: Acute Asessment and Plan: found prior to admission likely from multiple falls, ambulatory dysfunction weak (5) Memory deficit: Start date: 09/26/20 Start time: 11:56 Status: Acute Asessment and Plan: worsening dementia, going home on hospice, will be set up with hospice tomorrow (6) Weakness: Start date: 09/26/20 Start time: 11:57 Status: Acute Asessment and Plan: as above (7) Anxiety: Start date: 09/26/20 Start time: 11:57 Status: Chronic Asessment and Plan: severe anxiety will continue seroquel , hycosimine and remeron, will defer to medication when hospice takes over (8) Anorexia: Start date: 09/26/20 Start time: 11:58 Status: Acute Asessment and Plan: likely secondary to worsening dementia. above case discussed with Dr. Nicole who is in agreement. Discharge Plan Disposition Patient Disposition: HOME Condition: Deteriorating Discharge Details Reason For Visit: WEAKNESS, UTI Admit Date/Time: 09/18/20 10:46 Admit Provider: Arthur Casey Attending Provider: Arthur Casey Primary Care Provider: [facility] Hospital Course: 84 y.o male with dementia, HTN, HLD, presents to [facility] ED with c/o feeling SOB. He states having intermittent symptoms x 1 year. He states over the last year he has had shakes, anorexia, and felt as though he could not take a deep breath. Labs in ED remarkable for H/H 11.4/33.8, MCV 100.0. NA 131 alk phos 143, BNP 2343 albumin 2.8. He has been asked to be admitted for further management. On admission to floor patient was very nervous/anxious, chachetic, he was given ativan with little relief, and valium PO which seemed to calm him down.Trial seroquel for confusion with acute dilruim. He is a poor historian and has not been to a PCP in years. He does not like being in hospitals. He is very thin and states he has not been able to eat in almost a year, sometimes food gets stuck in his throat. His thyroid did feel slightly enlarged, will get thyroid u/s. Will obtain echo as he had an elevated BNP with CXR revealing Small right pleural effusion. Dose of lasix for effusion also acute edema/infiltrate cannot be excluded on XR. Urine in ED positive for nitrates and leuk estras, treat with ceftriaxone, urine cx pending, PVR. Will obtain CT abd pelvis. Palliative care consult, PT/OT. Over course of treatment he had renal u/s without anything remarkable, initiated on finastride and alvarado, attempted flomax but hours after administration he had a syncopal episode in chair with BP in 80's systolic, he was unresponsive. when he came through he did not know what had happened, nursing attempted sternal rub he was unresponsive for approx 20 mins per nursing. Very poor historian with little known history he was not cooperative with full exam unable to obtain full NIH scale but he did have left facial droop that was new with drooling therefore stroke protocol was initiated. CT ordered, results pending, CTA of head and neck IMPRESSION: Intradural left vertebral artery is diminutive and could be hypoplastic , however severe stenosis could not be excluded. Remaining arteries of the head demonstrates no high-grade stenosis, although evaluation is mildly limited due to decreased bolus contrast and motion degradation. Echo done revealing EF of 50%. Palliative met with and after a week of decision it was decided that the patient would go home on hospice. The patient will be admitted to hospice tomorrow, his is able to care for him today and he wants to go home today therefore he is go home vis ambulance. Will defer to hospice for medication. Home Meds and New Rx's Prescriptions: New trazodone 50 mg Tablet 25 mg PO Q4H Qty: 20 RF: 0 diazepam 2 mg Tablet 2 mg PO TID PRN PRN (Reason: Agitation) Qty: 10 RF: 0 hyoscyamine sulfate [Anaspaz] 0.125 mg Tablet,Disintegrating 0.125 mg sublingual BID Qty: 20 RF: 0 hydroxyzine HCl 25 mg Tablet 25 mg PO QID PRN PRNQty: 30 RF: 0 mirtazapine [Remeron] 15 mg Tablet 15 mg PO HS Qty: 20 RF: 0 finasteride 5 mg Tablet 5 mg PO DAILY Qty: 10 RF: 0 No Action multivitamin 1 EACH tablet 1 ea PO DAILY RF: 0 Discharge Instructions Instructions: Mood Disorders (DC), Dementia (GEN), Anxiety (DC) Additional Instructions: Take remeron at night as to help with anxiety and for sleep Hospice will meet with you tomorrow Take diazepam as needed for anxiety Stand Alone Forms: Nursing Discharge Form Activity:: Activity as Tolerated Equipment/Supplies:: No Equipment Needed Diet:: As Tolerated Discharge Orders Discharge Orders: Discharge Order (Routine); Ordered 09/26/20 Ordered By: Promise Simeon DS: Summary Time Spent with Patient providing and/or coordinating discharge services: Greater than 30 minutes Status at Discharge Functional status at discharge: bed bound Overall status at discharge: patient is not back to baseline Mental Status: other (highly anxious) Speech and Movement: speech and movement normal Mood: other (highly anxious) Affect: anxious affect Exam Const General: cooperative, frail appearing and ill appearing chronically Nutritional Appearance: underweight Orientation: alert, oriented to person and confused [facility] Head: normal to inspection, normocephalic and atraumatic Ears: hearing grossly normal bilaterally Face and sinus: normal facial exam and face symmetric Mouth: moist mucous membranes Eyes Visual Candelario: visual candelario abnormal by confrontation and abnormal by confrontation Eyelids: eyelids normal Conjunctivae: conjunctivae normal Sclera: sclerae normal Pupils: PERRL EOM: EOM intact bilaterally Neck Neck: normal visual inspection and no JVD Thyroid: abnormal thyroid and other (palpable) Lymphatic: no lymphadenopathy noted Resp Effort & Inspection: normal respiratory effort Auscultation: clear to auscultation bilaterally Cardio Jugular venous pressure: no JVD Rate: regular rate Rhythm: regular rhythm Heart Sounds: S1 normal and S2 normal GI Inspection: scaphoid Palpation: soft and no hepatosplenomegaly Auscultation: normal bowel sounds Back/Spine/Pelvis Back: no CVA tenderness Thoracic/Lumbar Spine: thoracic and lumbar spine normal to inspection Skin General skin exam: no rashes or lesions noted Neuro General: patient alert, not oriented x3 and patient confused Cognition: abnormal cognition Speech: speech normal Extrem General: normal to inspection, full ROM and no clubbing, cyanosis or edema Psych Appearance: well kempt Mental Status: other (highly anxious) Speech and Movement: speech and movement normal Mood: other (highly anxious) Affect: anxious affect DS: Data Vitals/I&O Vitals and I&O: Vital Signs Temperature 35.5 C L 09/25/20 11:21 Temperature Source Tympanic 09/25/20 11:21 Pulse 78 09/25/20 11:21 Pulse Rhythm Irregular 09/25/20 21:15 Pulse 90 09/18/20 08:30 Respiratory Rate 17 09/25/20 11:21 Respiratory Effort Non-Labored 09/26/20 00:00 Respiratory Depth Normal 09/26/20 00:00 Respiratory Pattern Normal 09/26/20 00:00 Blood Pressure 140/73 09/25/20 11:21 Blood Pressure Mean 80 09/18/20 08:28 Pulse Oximetry 98 09/25/20 11:21 Oxygen Delivery Method Room Air 09/25/20 11:21 Oxygen Flow Rate 0 09/25/20 11:21 Pain Level 0 09/24/20 19:38 Comment 09/22/20 03:55 Intake & Output 09/25/20 09/25/20 09/26/20 11:59 23:59 11:59 Intake Total 562.5 / 1056.25 493.75 / 1056.25 120 / 120 Output Total 400 / 850 450 / 850 750 / 750 Balance 162.5 / 206.25 43.75 / 206.25 -630 / -630 Intake: IV 562.5 / 1056.25 493.75 / 1056.25 Oral 120 / 120 Output: Urine 400 / 850 450 / 850 750 / 750 Other: Urine Color Light Jessica Yellow Light Jessica Urine Appearance Clear Clear Clear Stool Size Large Stool Characteristics Soft Brown Data Completed and Pending Completed studies during hospitalization [Text1]: Exam(s) a US:US thyroid EXAM: US THYROID CLINICAL HISTORY: enlarged. TECHNIQUE: Ultrasound thyroid performed using standard protocol. COMPARISON: No exams were available for comparison FINDINGS: Both thyroid lobes exhibit normal size, as does the isthmus. The thyroid gland echotexture is within normal limits. The right lobe measures 1.7 centimetres AP by 1.3 centimetres wide by 4.3 centimetres cephalocaudal. There are 2 focal findings in the right lobe, both measuring 3 x 2 millimeters and having the appearance of benign colloid cysts. There are no solid nodules in the right lobe. The isthmus appears unremarkable The left lobe measures 1.5 centimeters AP x 1.4 centimeters wide by 4.4 centimetres cephalocaudal. There are no nodules nor cysts in the left lobe. No significant lymphadenopathy evident on these images. IMPRESSION: There are 2 small benign 3 millimeter colloid cysts in the right thyroid lobe. No other focal thyroid findings. Thyroid lobes both exhibit normal size. No obvious lymphadenopathy evident. Exam(s) a RAD:XR portable chest AP EXAM: XR PORTABLE CHEST AP CLINICAL HISTORY: shortness of breath TECHNIQUE: 2D digital imaging was performed. COMPARISON: No exams were available for comparison FINDINGS: Heart size is within normal limits. The pulmonary vasculature is unremarkable. There are diffuse interstitial markings. Although this may represent an acute interstitial pneumonia/edema, chronic pulmonary fibrosis should also be considered. Please correlate clinically. No focal consolidating infiltrates are seen. There is blunting of the right costophrenic angle which may represent a small pleural effusion. No left pleural effusion or pneumothorax is seen. There is a mild right convex scoliosis of the thoracic spine. Degenerative changes are seen in the thoracic spine and shoulders bilaterally. IMPRESSION: 1. Small right pleural effusion. 2. Diffuse interstitial changes within the lungs. This may reflect chronic pulmonary fibrosis. Acute interstitial infiltrate/edema cannot be excluded. Please correlate clinically. Exam(s) a CT:CT chest PE CTA EXAM: CT CHEST PE CTA CLINICAL HISTORY: elevated bnp level and dyspnea. TECHNIQUE: Imaging Protocol: Axial CT angiography was performed with multi- slice acquisition and multi-planar and/or 3D reconstructions. CONTRAST MATERIAL: Intravenous: Omnipaque 350 Contrast volume:100 mL COMPARISON: CR XR PORTABLE CHEST AP from 09/18/2020 FINDINGS: The examination is limited due to patient motion artifact. Tracheobronchial tree: Patent where visualized. Pulmonary parenchyma: No consolidation or dominant measurable mass. Mild pulmonary fibrosis. Examination is limited due to patient respiration artifact. Pulmonary Arteries: No evidence of filling defect to suggest pulmonary emboli. Mediastinum and Sera: No dominant adenopathy or fluid collection. Visualized thyroid gland: Unremarkable. Pleura: There is a small right pleural effusion. No left pleural effusion. No pneumothorax. Heart: The heart is not dilated. Moderate coronary artery calcification. No pericardial effusion. Aorta: Thoracic aorta non-dilated. Atherosclerosis. No evidence of dissection. Upper abdomen: Unremarkable. Soft tissues: Unremarkable. Bones: There is a mild compression deformity of the T12 vertebral body this is indeterminate in age. IMPRESSION: 1. No evidence of pulmonary embolism, thoracic aortic dissection or aneurysm. 2. Mild T12 compression deformity. This is of indeterminate age. 3. Findings were discussed with the emergency department on the date of the examination. Exam(s) a CT:CT chest PE CTA EXAM: CT CHEST PE CTA CLINICAL HISTORY: elevated bnp level and dyspnea. TECHNIQUE: Imaging Protocol: Axial CT angiography was performed with multi- slice acquisition and multi-planar and/or 3D reconstructions. CONTRAST MATERIAL: Intravenous: Omnipaque 350 Contrast volume:100 mL COMPARISON: CR XR PORTABLE CHEST AP from 09/18/2020 FINDINGS: The examination is limited due to patient motion artifact. Tracheobronchial tree: Patent where visualized. Pulmonary parenchyma: No consolidation or dominant measurable mass. Mild pulmonary fibrosis. Examination is limited due to patient respiration artifact. Pulmonary Arteries: No evidence of filling defect to suggest pulmonary emboli. Mediastinum and Sera: No dominant adenopathy or fluid collection. Visualized thyroid gland: Unremarkable. Pleura: There is a small right pleural effusion. No left pleural effusion. No pneumothorax. Heart: The heart is not dilated. Moderate coronary artery calcification. No pericardial effusion. Aorta: Thoracic aorta non-dilated. Atherosclerosis. No evidence of dissection. Upper abdomen: Unremarkable. Soft tissues: Unremarkable. Bones: There is a mild compression deformity of the T12 vertebral body this is indeterminate in age. IMPRESSION: 1. No evidence of pulmonary embolism, thoracic aortic dissection or aneurysm. 2. Mild T12 compression deformity. This is of indeterminate age. 3. Findings were discussed with the emergency department on the date of the examination. Exam(s) a CT:CT abdomen & pelvis wo EXAM: CT ABDOMEN PELVIS WO CLINICAL HISTORY: decreased appetite constipation. TECHNIQUE: Imaging Protocol: Axial computed tomography images with coronal and sagittal reformatted images were created and reviewed CONTRAST MATERIAL: Intravenous: none Oral: None COMPARISON: CT CT CHEST PE CTA from 09/18/2020 FINDINGS: VISUALIZED LUNG BASES: There is some infiltrate and pleural effusion in the right lung base, similar to yesterday ABDOMEN: There is no ascites. LIVER: Liver appears somewhat cirrhotic. There is no obvious discrete focal hepatic lesion evident. GALLBLADDER/BILIARY: Not seen and presumed to be surgically absent. There are no clips in the gallbladder fossa. CBD is not dilated. PANCREAS: No evidence of pancreatic mass nor dilatation of the pancreatic duct. SPLEEN: Spleen is not enlarged. No obvious intrasplenic lesions. ADRENALS: There are no significant adrenal masses. KIDNEYS:No cysts evident. No solid renal masses. No calculi nor hydronephrosis. . ABDOMINAL AORTA: Calcified. Upper normal diameter for this age group. ABDOMINAL WALL/GI: There is right inguinal hernia which contains fluid but no bowel loops. No bowel obstruction. PELVIS: LYMPH NODES: There is no intrapelvic nor inguinal adenopathy. GI: No evidence of appendicitis.No evidence of sigmoid diverticulitis. URINARY BLADDER: Distended and filled with contrast from yesterday's CT scan. REPRODUCTIVE: Prostate is not enlarged. 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 Advanced degenerative changes are noted in the opposite- right hip. There is ankylosis of the sacroiliac joints noted. There is compression fracture of superior endplate of L2 +Schmorl's node invagination at this level, all age-indeterminate. Similar compression fracture superior endplate of T12, age indeterminate. IMPRESSION: 1. There is some infiltrate in the right lung base and there is a small right pleural effusion noted. This appears unchanged in for size from yesterday's chest CT scan. 2. The urinary bladder is distended. No obvious bladder mass. 3. Minimally dilated bilateral urinary tract collecting systems, symmetrical in appearance and possibly related to bladder outlet obstruction, despite prostate not being grossly enlarged. There is no obvious mass in the urinary bladder. Exam(s) a CT:CT brain & neck CTA EXAM: CT BRAIN NECK CTA CLINICAL HISTORY: syncopal episode. TECHNIQUE: Imaging Protocol: Axial CT angiography was performed with multi- slice acquisition and multi-planar and/or 3D reconstructions. CONTRAST MATERIAL: Intravenous: Omnipaque 350 Contrast volume:structured data in ml COMPARISON: CT CT ABDOMEN PELVIS WO from 09/18/2020 FINDINGS: CT Head W/O, W: Ventricles and Extra axial spaces: Normal in size and morphology for the patient's age. Hemorrhage: None. Cerebral parenchyma: Mild atrophy. Patchy white matter changes likely reflecting microvascular disease. Midline shift: None. Brainstem/Cerebellum: Normal. Calvarium: Normal. Visualized Paranasal sinuses/Mastoids: Clear. Soft Tissues: Unremarkable. No abnormal enhancing lesions. CTA Brain W: Internal Carotid Arteries: Calcification but no significant stenosis bilaterally. Petrous: Normal. Cavernous: Normal. Cerebral: Normal. Middle Cerebral Arteries: Right: No aneurysm, occlusion or significant stenosis. Left: No aneurysm, occlusion or significant stenosis. Anterior Cerebral Arteries: Right: No aneurysm, occlusion or significant stenosis. Left: No aneurysm, occlusion or significant stenosis. Posterior cerebral Arteries: Right: No aneurysm, occlusion or significant stenosis. Left: No aneurysm, occlusion or significant stenosis. Vertebral Arteries: Right: No aneurysm, occlusion or significant stenosis. Left: Diminutive. No aneurysm, occlusion or significant stenosis. Basilar Artery: No aneurysm, occlusion or significant stenosis. CTA Neck W: Mildly limited by motion. Common Carotid: Calcifications at the origin. Right: No aneurysm, occlusion or significant stenosis. Left: No aneurysm, occlusion or significant stenosis. External Carotid: Calcification at the origin Right: No aneurysm, occlusion or significant stenosis. Left: No aneurysm, occlusion or significant stenosis. Internal Carotid: Right: Mild mixed calcified and noncalcified plaque at the bifurcation and proximal internal carotid artery. No aneurysm, occlusion or significant stenosis. Left: Calcification at the bifurcation. No aneurysm, occlusion or significant stenosis. Vertebral Artery: Right: No aneurysm, occlusion or significant stenosis. Left: Diminutive. No aneurysm, occlusion or significant stenosis. Lung Apices: Apical scarring. Bones: Degenerative changes. No fracture. Soft Tissues: Normal. IMPRESSION: 1. Somewhat limited exam due to motion. Normal CTA examination of the [place]. 2. Mild white matter changes of small vessel disease.. 3. Calcification at the common carotid bulbs. No significant stenosis.. Exam(s) a US:US renal EXAM: US RENAL CLINICAL HISTORY: UTI, retention TECHNIQUE: Ultrasound of both kidneys performed using standard protocol. COMPARISON: US US OR ANESTHESIA from 09/19/2020 FINDINGS: RIGHT KIDNEY: Measures 9 cm in length. No cysts evident. Normal cortical thickness and corticomedullary differentiation .No solid masses No intrarenal calculi nor hydronephrosis. LEFT KIDNEY: Measures 10 cm in length. No cysts evident. Normal cortical thickness and corticomedullary differentiaion. No solids masses. No intrarenal calculi nor hydonephrosis. Exam(s) PROCEDURE INFORMATION: Exam: US Retroperitoneal; Complete; Kidneys and Bladder Exam date and time: 09/20/2020 4:13 PM Age: 84 years old Clinical indication: Other: UTI, retention TECHNIQUE: Imaging protocol: Real-time ultrasound of the retroperitoneum with image documentation. Complete exam focused on the kidneys and bladder. COMPARISON: CT ABDOMEN PELVIS WO 09/18/2020 3:46 PM FINDINGS: The right and left kidneys measure 9 and 10 cm in length respectively. No hydronephrosis. No renal cysts or masses. No shadowing calculi. The urinary bladder is decompressed. There is a right pleural effusion. IMPRESSION: 1. No hydronephrosis. 2. Right pleural effusion. EXAM: Comprehensive 2D, Doppler, and color-flow Echocardiogram Patient Location: In-Patient Room/Bed: [facility] Licensed Sales Producer: Adela Queen RDCS (AE) Indications: R/O CHF, Syncope, HTN Other Information Study Quality: Fair. Technically limited study due to inability to position patient, uncooperative patient. Conclusion Left Ventricle : The left ventricle is normal size. Left ventricular systolic function is borderline. There is normal left ventricular wall thickness. There is normal LV segmental wall motion. LVEF is 50%. Diastolic function is indeterminate. Right Ventricle : Right ventricle is not well visualized. Right ventricular systolic function could not be assessed. Atria : The left atrium size is normal. The right atrium size is normal. Aortic Valve : The Aortic valve is sclerotic. Aortic valve is probably trileaflet. There is no aortic valvular stenosis. Mild aortic regurgitation. Mitral Valve : Mild mitral annular calcification. Mild mitral regurgitation. No evidence of mitral valve stenosis. Great Vessels : The aortic root is normal in size. Ascending aorta is not well visualized. The IVC collapses <50% with normal respiration. Please see remainder of study for further details. Wall motion Left Ventricle The left ventricle is normal size. Left ventricular systolic function is borderline. There is normal left ventricular wall thickness. There is normal LV segmental wall motion. Diastolic function is indeterminate. There is no ventricular septal defect visualized. LVEF is 50%. Right Ventricle Right ventricle is not well visualized. Right ventricular systolic function could not be assessed. Atria The left atrium size is normal. The right atrium size is normal. The interatrial septum is intact with no evidence for an atrial septal defect. Aortic Valve The Aortic valve is sclerotic. Aortic valve is probably trileaflet. There is no aortic valvular stenosis. Mild aortic regurgitation. Mitral Valve Mild mitral annular calcification. No evidence of mitral valve stenosis. Mild mitral regurgitation. Tricuspid Valve The tricuspid valve is normal in structure. There is no tricuspid valve stenosis. Trace tricuspid regurgitation. Pulmonic Valve The pulmonary valve is normal in structure. There is no pulmonic valvular stenosis. There is no pulmonic valvular regurgitation. Great Vessels The aortic root is normal in size. Ascending aorta is not well visualized. The IVC collapses <50% with normal respiration. Pericardium There is no pericardial effusion. Labs on day of discharge: Labs from last 24 hours 09/26/20 09/26/20 07:05 07:05 WBC 3.80 L RBC 3.17 L Hgb 10.9 L Hct 31.9 L MCV 100.6 H MCH 34.4 H MCHC 34.2 RDW 12.4 Plt Count 145 MPV 9.6 Immature Gran % 0.3 Neutrophils % 52.5 Lymphocytes % 25.8 Monocytes % 15.0 Eosinophils % 6.1 Basophils % 0.3 Nucleated RBC % 0 Absolute Neutrophils 2.00 Absolute Lymphocytes 0.98 L Absolute Monocytes 0.57 Absolute Eosinophils 0.23 Absolute Basophils 0.01 Sodium 138 Potassium 3.3 L Chloride 103 Carbon Dioxide 28.6 Anion Gap 6.4 BUN 13 Creatinine 0.7 Estimated GFR/1.73 m2 >= 60.00 Glucose 79 Calcium 8.5 Magnesium 1.8 [facility] Medical History Anorexia Eye degeneration Gout We will check a uric acid along with a CBC and CMP. Hearing loss Does not have a hearing aid but seems to function okay. 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 He does not want any treatment for this at present. He does not want any further x-rays. Urinary retention Family History Mother Heart disease Father , AGE 83 No problems noted. Social History Smoking/Tobacco Use Status: Former Tobacco Use Quit Date: 08/28/87 Smoking risk assessment performed?: Yes Alcohol Intake: former Substance use type: does not use Frequency: does not exercise Rohini/Yazidism: No preference Special rohini needs: No Do you feel safe at home: Yes Do you feel safe in your relationship?: Yes
[2020-09-26] MEDS: hydrOXYzine HCL 25 MG TAB PO (12:33)
--- NOTE | 2020-09-26 16:36 | CMDISCH_ITS ---
- If Service Date Differs Date of service: 09/26/20 Time of Service: 16:36 LACE Index Scoring Tool - Questions: Length of Stay (in days): 7 - 13 Acuity (Admit via E.D.?): Yes E.D. Visits: 1 - Answers: Total Score: 9 Risk of Readmission: Low Risk Care Management Discharge Reason for Hospitalization: weakness Discharge Plan: Raul will return home today to the care of his , Veena. They have decided that Raul will be admitted to Hospice tomorrow. CM notified [facility]. He was transported via ambulance, coordinated by CM. He was very happy to be going home. Patient/Family Education Needs: Review discharge instructions, discussion of expectations of Hospice care. Services Needed at Discharge: Home Health Care Services (Hospice), Transportation ([place])
== END 2020-09-26 13:10 | disposition home or self-care (01) | DRG 947 ==
LOC: ER 09:23 → MS 11:42
PROVIDERS: Family Medicine; Internal Medicine; Nurse Practitioner Family; Admitting Provider Family Medicine; Emergency Provider Physician Assistant; PCP Nurse Practitioner; Visit Provider Family Medicine
DX: R53.1 Weakness (principal); J18.9 Pneumonia, unspecified organism; R64 Cachexia; N39.0 Urinary tract infection, site not specified; F03.90 Unspecified dementia, unspecified severity, without behavioral disturbance, psychotic disturbance, mood disturbance, and anxiety; I10 Essential (primary) hypertension; E78.5 Hyperlipidemia, unspecified; R41.0 Disorientation, unspecified; Z68.21 Body mass index [BMI] 21.0-21.9, adult; F41.9 Anxiety disorder, unspecified; R63.0 Anorexia; M10.9 Gout, unspecified; H91.90 Unspecified hearing loss, unspecified ear; M16.11 Unilateral primary osteoarthritis, right hip; R55 Syncope and collapse; I95.9 Hypotension, unspecified; R29.818 Other symptoms and signs involving the nervous system; E53.8 Deficiency of other specified B group vitamins; S41.111A Laceration without foreign body of right upper arm, initial encounter; S61.412A Laceration without foreign body of left hand, initial encounter; S61.411A Laceration without foreign body of right hand, initial encounter; X58.XXXA Exposure to other specified factors, initial encounter; B96.20 Unspecified Escherichia coli [E. coli] as the cause of diseases classified elsewhere; R33.9 Retention of urine, unspecified; Z86.73 Personal history of transient ischemic attack (TIA), and cerebral infarction without residual deficits; Z66 Do not resuscitate; R13.12 Dysphagia, oropharyngeal phase; R29.6 Repeated falls; D64.9 Anemia, unspecified
CPT/HCPCS: 36410; 36415; 70496; 70498; 71275; 76770; 80048; 80053; 80061; 80307; 84145; 85027; 87040; 87077; 92610; 92611; 93005; 93306; 96361; 96365; 97110; 97162; 97530; 99221; 99222; 99223; 99231; 99232; 99233; 99239; 99252; 99254; 99255; 99285; 99291; U0003; 70551; 71045; 74176; 74221; 76536; 81003; 81015; 82140; 82607; 82728; 82746; 83540; 83550; 83605; 83735; 83880; 84154; 84443; 84466; 84484; 85025; 87086; 87186; 93010; J0696; J1644; J1941; J2060; J2405; J2543; J3360; J3490

== ENCOUNTER → 2020-09-21 08:15 | Outpatient (BNVA) | payer MEDICARE, SELFPAY | PROVIDERS: PCP Nurse Practitioner; Referring Provider Nurse Practitioner; Visit Provider Psychiatry & Neurology Neurology | DX: R69 Illness, unspecified (principal) ==